=== PATIENT | male | born 1980 ===

== ENCOUNTER 2017-11-07 19:17 | Inpatient (IN) ==
[2017-11-07] MEDS ORDERED: HYDROmorphone 2 MG/1 ML VIAL IV STA (20:25)
[2017-11-07] MEDS ORDERED: SODIUM CHLORIDE 0.9% 1,000 ML IV STA (20:25)
[2017-11-07] MEDS ORDERED: CLINDAMYCIN INJ 600 MG in PREMIX 1 EACH IV STA (20:25)
[2017-11-07 21:02] LABS: Basophils % 0.2 % (0.0-0.8); Eosinophils # 0.1 10*3/uL (0.0-0.87); Eosinophils % 0.3 % (0.00-10.9); Hematocrit 35.5 VOL% (42.0-52.0); Hemoglobin 12.1 GM/DL (14.0-18.0); Immature Granulocytes % 0.4 %; Immature Granulocytes Absolute 0.08 #; Lymphocytes # 1.5 10*3/uL (1.4-4.0); Mean Corpuscular HGB Conc 34.1 GM/DL (32-36); Mean Corpuscular Hemoglobin 29 PG (27-34); Mean Corpuscular Volume 85.7 FL (87-102); Mean Platelet Volume 9.8 FL (9.6-12.0); Monocytes # 1.4 10*3/uL (0.11-0.8); Monocytes % 7.6 % (1.7-12.7); Neutrophils # 15.9 10*3/uL (1.4-7.4); Neutrophils % 83.5 % (38.7-73.9); Platelet Count 299 T/CUMM (130-400); Red Blood Count 4.14 MC/CUMM (3.8-5.5); Red Cell Distribution Width 12.3 % (9.3-17.3); White Blood Count 19.1 T/CUMM (4-12)
[2017-11-07 21:21] LABS: Albumin 1.6 G/DL (3.4-5.0); Bilirubin,Total 0.6 MG/DL (0.2-1.0); Calcium 7.1 MG/DL (8.5-10.1); Osmolality,Calculated 283.1 MOS/KG (273-304); Potassium 3.2 MMOL/L (3.5-5.1); Total Protein 5.8 G/DL (6.4-8.3)
[2017-11-07] MEDS ORDERED: ONDANSETRON 4 MG/2 ML VIAL IV PRN (23:30)
[2017-11-07] MEDS ORDERED: GLUCAGON 1 MG VIAL IM PRN (23:30)
[2017-11-07] MEDS: SODIUM CHLORIDE 0.9% 1,000 ML IV SCH (23:48)
[2017-11-08] MEDS: PIPERACILLIN/TAZOBACTAM 3,375 MG in SODIUM CHLORIDE 0.9% 100 ML IV SCH ×3 (00:55→16:57)
[2017-11-08] MEDS: CLINDAMYCIN INJ 600 MG in PREMIX 1 EACH IV SCH ×2 (06:15→13:23)
[2017-11-08 06:53] LABS: Amorphous Crystals,Urine Occasional /HPF (Few); Apearance,Urine CLOUDY (Clear); Bacteria,Urine Occasional /HPF (Few); Bilirubin,Urine Negative (Negative); Blood, Urine Moderate mg/dL (Negative); Glucose,Urine (UA) >=500 mg/dL (Negative); Ketones,Urine Negative (Negative); Nitrite,Urine Negative (Negative); Protein,Urine >=500 MG/DL; RBC,Urine 1 /HPF (0-4); Squamous Epithelial Cell,Urine Occasional /HPF (0-10); Urine Color Amber (Yellow); Urine Specific Gravity 1.015 (1.001-1.035); Urine Urobilinogen < 2.0 EU/DL (0.2-1.0); WBC,Urine 2 /HPF (0-6)
[2017-11-08] MEDS: HYDROmorphone 2 MG/1 ML VIAL IV PRN (07:01)
[2017-11-08 07:47] LABS: Basophils # 0.1 10*3/uL (0.0-0.2); Basophils % 0.3 % (0.0-0.8); Eosinophils # 0.1 10*3/uL (0.0-0.87); Eosinophils % 0.5 % (0.00-10.9); Hematocrit 35.2 VOL% (42.0-52.0); Hemoglobin 11.6 GM/DL (14.0-18.0); Immature Granulocytes % 0.6 %; Immature Granulocytes Absolute 0.12 #; Lymphocytes # 1.2 10*3/uL (1.4-4.0); Lymphocytes % 6.1 % (21.2-54.2); Mean Corpuscular Hemoglobin 29 PG (27-34); Mean Corpuscular Volume 87.1 FL (87-102); Mean Platelet Volume 10.1 FL (9.6-12.0); Monocytes # 1.6 10*3/uL (0.11-0.8); Monocytes % 8.7 % (1.7-12.7); Neutrophils # 15.8 10*3/uL (1.4-7.4); Neutrophils % 83.8 % (38.7-73.9); Platelet Count 326 T/CUMM (130-400); Red Blood Count 4.04 MC/CUMM (3.8-5.5); Red Cell Distribution Width 12.5 % (9.3-17.3); White Blood Count 18.8 T/CUMM (4-12)
[2017-11-08 08:15] LABS: Albumin 1.5 G/DL (3.4-5.0); Bilirubin,Total 0.4 MG/DL (0.2-1.0); Calcium 7.1 MG/DL (8.5-10.1); Osmolality,Calculated 294.8 MOS/KG (273-304); Potassium 3.7 MMOL/L (3.5-5.1); Total Protein 5.6 G/DL (6.4-8.3)
[2017-11-08] MEDS ORDERED: MAGNESIUM SULF RIDER 2 GM in PREMIX 1 EACH IV PRN (08:18)
[2017-11-08] MEDS ORDERED: MAGNESIUM SULF RIDER 4 GM in PREMIX 1 EACH IV PRN (08:18)
[2017-11-08] MEDS ORDERED: ALBUTEROL/IPRATROPIUM 3 ML NEB RESP TX ONE (08:27)
[2017-11-08] MEDS ORDERED: IPRATROPIUM 500 MCG/2.5 ML NEB RESP TX ONE (08:29)
[2017-11-08] MEDS ORDERED: ALBUTEROL 2.5 MG/3 ML NEB RESP TX ONE (08:29)
[2017-11-08] MEDS: INSULIN REGULAR 100 UNIT/ML SUBCUT SCH ×4 (08:39→21:38)
[2017-11-08] MEDS: SODIUM CHLORIDE 0.9% 500 ML IV ONE ×2 (09:00→11:39)
[2017-11-08] MEDS ORDERED: CARVEDILOL 12.5 MG TABLET PO SCH (09:00)
[2017-11-08] MEDS ORDERED: PANTOPRAZOLE 40 MG TABLET PO SCH (09:00)
[2017-11-08] MEDS ORDERED: amLODIPine 10 MG TABLET PO SCH (09:00)
[2017-11-08] MEDS ORDERED: SPIRONOLACTONE 25 MG TABLET PO SCH (09:00)
[2017-11-08] MEDS ORDERED: CHLORTHALIDONE 25 MG TABLET PO SCH (09:00)
[2017-11-08] MEDS ORDERED: LISINOPRIL 20 MG TABLET PO SCH (09:00)
[2017-11-08] MEDS: glyBURIDE 5 MG TABLET PO SCH ×2 (09:04→21:38)
[2017-11-08] MEDS: sitaGLIPtin 25 MG TABLET PO SCH (09:05)
[2017-11-08] MEDS: GABAPENTIN 300 MG CAPSULE PO SCH ×3 (09:05→18:28)
[2017-11-08] MEDS: CETIRIZINE 10 MG TABLET PO SCH (09:05)
[2017-11-08] MEDS ORDERED: fentaNYL 100 MCG/2 ML VIAL ONE (10:34)
[2017-11-08] MEDS ORDERED: SEVOFLURANE 1 UNIT/15 MINUTE INH ONE (10:35)
[2017-11-08] MEDS ORDERED: MIDAZOLAM 2 MG/2 ML VIAL ONE (10:35)
[2017-11-08] MEDS ORDERED: PROPOFOL 200 MG/20 ML VIAL IV ONE (10:35)
[2017-11-08] MEDS ORDERED: ONDANSETRON 4 MG/2 ML VIAL ONE (10:35)
[2017-11-08] MEDS ORDERED: MORPHINE 10 MG/1 ML VIAL ONE (10:37)
[2017-11-08] MEDS: MORPHINE 10 MG/1 ML VIAL IV PRN ×2 (10:40→10:52)
[2017-11-08] MEDS: SODIUM CHLORIDE 0.9% 1,000 ML IV SCH (13:21)
[2017-11-08] MEDS: INSULIN LISPRO 100 UNIT/ML SUBCUT SCH (17:28)
[2017-11-08] MEDS: miSOPROStol 200 MCG TABLET PO SCH ×2 (18:26→21:38)
[2017-11-08] MEDS ORDERED: VANCOMYCIN INJ 1,000 MG in SODIUM CHLORIDE 0.9% 250 ML IV SCH (18:30)
[2017-11-08] MEDS ORDERED: SODIUM CHLORIDE 0.9% 1,000 ML IV ONE (19:05)
[2017-11-08] MEDS ORDERED: VANCOMYCIN INJ 2,000 MG in SODIUM CHLORIDE 0.9% 500 ML IV PRN (19:17)
[2017-11-08] MEDS: MEROPENEM 500 MG in SYRINGE 1 EACH IV SCH (19:29)
[2017-11-08] MEDS ORDERED: LACTATED RINGERS 1,000 ML IV SCH (19:30)
[2017-11-08] MEDS ORDERED: NOREPINEPHRINE 4 MG/4 ML VIAL IV ONE (19:41)
[2017-11-08 19:42] LABS: ABG Base Excess -9.5 MMOL/L (-2.5-2.5); ABG HCO3 16.8 MMOL/L (20-26); ABG Oxygen Saturation 95.6 % (95-100); ABG PCO2 46.4 MM HG (35-48); ABG PO2 90.3 MM HG (80-95); ABG TCO2 17.2 MMOL/L (23-27); Allen Test Positive
[2017-11-08 19:44] LABS: ABG PH 7.205 (7.35-7.45)
[2017-11-08] MEDS ORDERED: VANCOMYCIN INJ 2,000 MG in SODIUM CHLORIDE 0.9% 500 ML IV ONE (20:00)
[2017-11-08] MEDS ORDERED: ETOMIDATE 20 MG/10 ML VIAL IV ONE ×2 (20:13→21:07)
[2017-11-08] MEDS ORDERED: VECURONIUM 10 MG VIAL IV ONE ×2 (20:13→21:07)
[2017-11-08] MEDS ORDERED: PROPOFOL 1,000 MG/100 ML BOTTLE IV ONE (20:24)
[2017-11-08 20:53] LABS: Basophils % 0.1 % (0.0-0.8); Eosinophils % 0.1 % (0.00-10.9); Hematocrit 33.8 VOL% (42.0-52.0); Hemoglobin 10.9 GM/DL (14.0-18.0); Immature Granulocytes % 0.7 %; Immature Granulocytes Absolute 0.13 #; Lymphocytes # 0.8 10*3/uL (1.4-4.0); Lymphocytes % 4.3 % (21.2-54.2); Mean Corpuscular HGB Conc 32.2 GM/DL (32-36); Mean Corpuscular Hemoglobin 29 PG (27-34); Mean Corpuscular Volume 90.1 FL (87-102); Mean Platelet Volume 10.1 FL (9.6-12.0); Monocytes # 1.4 10*3/uL (0.11-0.8); Monocytes % 7.8 % (1.7-12.7); Neutrophils # 15.8 10*3/uL (1.4-7.4); Platelet Count 331 T/CUMM (130-400); Red Blood Count 3.75 MC/CUMM (3.8-5.5); Red Cell Distribution Width 12.9 % (9.3-17.3); White Blood Count 18.1 T/CUMM (4-12)
[2017-11-08] MEDS ORDERED: INSULIN GLARGINE 100 UNIT/ML SUBCUT SCH (21:00)
[2017-11-08] MEDS: NOREPINEPHRINE 8 MG in SODIUM CHLORIDE 0.9% 242 ML IV PRN (21:00)
[2017-11-08] MEDS ORDERED: ALBUTEROL/IPRATROPIUM 3 ML NEB RESP TX PRN (21:14)
[2017-11-08 21:24] LABS: Albumin 1.5 G/DL (3.4-5.0); Bilirubin,Total 0.6 MG/DL (0.2-1.0); Osmolality,Calculated 289.1 MOS/KG (273-304); Total Protein 5.9 G/DL (6.4-8.3)
[2017-11-08] MEDS: PROPOFOL 1,000 MG/100 ML BOTTLE IV SCH (21:38)
[2017-11-08 21:43] LABS: Band Neutrophils 4 % (0-10); Lymphocytes 8 % (20-55); Platelet Estimate Normal; Segmented Neutrophils 79 % (50-85); Total Cells Counted 100
[2017-11-08 21:51] LABS: ABG Base Excess -10.1 MMOL/L (-2.5-2.5); ABG HCO3 16.4 MMOL/L (20-26); ABG Oxygen Saturation 98.2 % (95-100); ABG PCO2 34.6 MM HG (35-48); ABG PH 7.272 (7.35-7.45); ABG TCO2 14.7 MMOL/L (23-27)
[2017-11-08] MEDS ORDERED: ALBUMIN 5% 12.5 GM in PREMIX 1 EACH IV ONE (22:25)
[2017-11-08] MEDS ORDERED: LACTATED RINGERS 1,000 ML IV ONE (22:25)
[2017-11-08] MEDS ORDERED: SODIUM BICARB INJ 100 MEQ in SODIUM CHLORIDE 0.45% 1,000 ML IV SCH (23:00)
[2017-11-09] MEDS: fentaNYL 100 MCG/2 ML VIAL IV PRN (00:07)
[2017-11-09] MEDS: ALBUTEROL/IPRATROPIUM 3 ML NEB RESP TX SCH ×4 (01:01→19:35)
[2017-11-09] MEDS ORDERED: LACTATED RINGERS 1,000 ML IV SCH (02:00)
[2017-11-09 04:12] LABS: ABG Base Excess -10.1 MMOL/L (-2.5-2.5); ABG HCO3 16.4 MMOL/L (20-26); ABG Oxygen Saturation 95.5 % (95-100); ABG PCO2 38.6 MM HG (35-48); ABG PH 7.244 (7.35-7.45); ABG PO2 83.8 MM HG (80-95); ABG TCO2 15.5 MMOL/L (23-27)
[2017-11-09] MEDS: PROPOFOL 1,000 MG/100 ML BOTTLE IV SCH ×3 (04:17→17:25)
[2017-11-09 04:50] LABS: Basophils % 0.2 % (0.0-0.8); Eosinophils % 0.1 % (0.00-10.9); Hematocrit 29.5 VOL% (42.0-52.0); Hemoglobin 9.6 GM/DL (14.0-18.0); Immature Granulocytes % 0.8 %; Immature Granulocytes Absolute 0.13 #; Lymphocytes # 1.3 10*3/uL (1.4-4.0); Lymphocytes % 7.5 % (21.2-54.2); Mean Corpuscular HGB Conc 32.5 GM/DL (32-36); Mean Corpuscular Hemoglobin 30 PG (27-34); Mean Corpuscular Volume 90.8 FL (87-102); Mean Platelet Volume 10.6 FL (9.6-12.0); Monocytes # 1.4 10*3/uL (0.11-0.8); Monocytes % 8.2 % (1.7-12.7); Neutrophils # 14.4 10*3/uL (1.4-7.4); Neutrophils % 83.2 % (38.7-73.9); Platelet Count 305 T/CUMM (130-400); Red Blood Count 3.25 MC/CUMM (3.8-5.5); Red Cell Distribution Width 12.7 % (9.3-17.3); White Blood Count 17.3 T/CUMM (4-12)
[2017-11-09 05:19] LABS: Calcium 6.6 MG/DL (8.5-10.1); Osmolality,Calculated 295.5 MOS/KG (273-304); Potassium 3.7 MMOL/L (3.5-5.1)
[2017-11-09] MEDS: MEROPENEM 500 MG in SYRINGE 1 EACH IV SCH ×2 (06:05→18:15)
[2017-11-09] MEDS ORDERED: SODIUM CHLORIDE 0.9% 1,000 ML IV SCH (07:00)
[2017-11-09 07:30] LABS: Risk Ratio 3.31
[2017-11-09] MEDS ORDERED: INSULIN LISPRO 100 UNIT/ML SUBCUT SCH (08:00)
[2017-11-09] MEDS: ALBUMIN 25% 25 GM in PREMIX 1 EACH IV SCH ×3 (08:17→23:47)
[2017-11-09] MEDS: sitaGLIPtin 25 MG TABLET PO SCH (08:18)
[2017-11-09] MEDS: CETIRIZINE 10 MG TABLET PO SCH (08:18)
[2017-11-09] MEDS: miSOPROStol 200 MCG TABLET PO SCH ×4 (08:18→20:28)
[2017-11-09] MEDS: glyBURIDE 5 MG TABLET PO SCH ×2 (08:18→20:27)
[2017-11-09 09:14] LABS: Albumin (UPER) 425.2 MG/DL; Albumin (UPER) Rel% 50.8 %; Alpha 1 (UPER) 52.7 MG/DL; Alpha 1 (UPER) Rel% 6.3 %; Alpha 2 (UPER) 87.1 MG/DL; Random Urine Protein (Bench) 837 MG/DL (<11.9)
[2017-11-09 09:15] LABS: Alpha 2 (UPER) Rel % 10.4 %; Beta (UPER) Rel % 13.5 %; Gamma (UPER) 15.9 MG/DL; Immunoglobulin A (Chem) 304 MG/DL (70-400); Immunoglobulin G (Chem) 1330 MG/DL (700-1600); Immunoglobulin M (Chem) 39 MG/DL (40-230)
[2017-11-09] MEDS: SODIUM BICARB INJ 150 MEQ in DEXTROSE 5% 850 ML IV SCH ×3 (09:45→23:31)
[2017-11-09] MEDS: INSULIN REGULAR 100 UNIT/ML SUBCUT SCH (10:00)
[2017-11-09] MEDS ORDERED: INSULIN GLARGINE 100 UNIT/ML SUBCUT ONE (11:14)
[2017-11-09] MEDS: HYDROmorphone 2 MG/1 ML VIAL IV PRN ×2 (11:17→18:15)
[2017-11-09] MEDS: PANTOPRAZOLE 40 MG VIAL IV SCH (11:18)
[2017-11-09] MEDS: INSULIN GLARGINE 100 UNIT/ML SUBCUT SCH ×2 (11:24→20:27)
[2017-11-09] MEDS: INSULIN LISPRO 100 UNIT/ML SUBCUT SCH ×5 (13:15→23:47)
[2017-11-09] MEDS: ACETAMINOPHEN 325 MG TABLET PO PRN (18:00)
[2017-11-09] MEDS ORDERED: NOREPINEPHRINE 4 MG/4 ML VIAL IV ONE (19:15)
[2017-11-09] MEDS: NOREPINEPHRINE 8 MG in SODIUM CHLORIDE 0.9% 242 ML IV PRN (19:42)
[2017-11-10] MEDS: PROPOFOL 1,000 MG/100 ML BOTTLE IV SCH ×5 (00:28→21:36)
[2017-11-10] MEDS: ALBUTEROL/IPRATROPIUM 3 ML NEB RESP TX SCH ×4 (01:10→18:37)
[2017-11-10] MEDS: fentaNYL 100 MCG/2 ML VIAL IV PRN ×2 (03:40→21:06)
[2017-11-10 04:46] LABS: ABG Base Excess -0.7 MMOL/L (-2.5-2.5); ABG HCO3 23.8 MMOL/L (20-26); ABG Oxygen Saturation 96.9 % (95-100); ABG PCO2 39.3 MM HG (35-48); ABG PH 7.394 (7.35-7.45); ABG PO2 88.7 MM HG (80-95); Allen Test Positive; Pt O2 Delivery Device Ventilator
[2017-11-10 05:29] LABS: Basophils % 0.1 % (0.0-0.8); Eosinophils # 0.2 10*3/uL (0.0-0.87); Eosinophils % 1.7 % (0.00-10.9); Hematocrit 27.6 VOL% (42.0-52.0); Hemoglobin 9.5 GM/DL (14.0-18.0); Immature Granulocytes % 0.5 %; Immature Granulocytes Absolute 0.07 #; Lymphocytes % 7.7 % (21.2-54.2); Mean Corpuscular HGB Conc 34.4 GM/DL (32-36); Mean Corpuscular Hemoglobin 29 PG (27-34); Mean Corpuscular Volume 85.4 FL (87-102); Mean Platelet Volume 10.4 FL (9.6-12.0); Monocytes # 1.1 10*3/uL (0.11-0.8); Monocytes % 8.1 % (1.7-12.7); NRBC # 0.02 10*3/uL; Neutrophils # 10.9 10*3/uL (1.4-7.4); Neutrophils % 81.9 % (38.7-73.9); Platelet Count 317 T/CUMM (130-400); Red Blood Count 3.23 MC/CUMM (3.8-5.5); White Blood Count 13.3 T/CUMM (4-12)
[2017-11-10 05:58] LABS: Calcium 7.2 MG/DL (8.5-10.1); Potassium 3.4 MMOL/L (3.5-5.1)
[2017-11-10] MEDS: MEROPENEM 500 MG in SYRINGE 1 EACH IV SCH (05:58)
[2017-11-10] MEDS: SODIUM BICARB INJ 150 MEQ in DEXTROSE 5% 850 ML IV SCH ×5 (06:01→23:39)
[2017-11-10] MEDS: INSULIN LISPRO 100 UNIT/ML SUBCUT SCH ×6 (06:30→23:51)
[2017-11-10] MEDS ORDERED: FUROSEMIDE INJ 160 MG in SODIUM CHLORIDE 0.9% 50 ML IV ONE (09:30)
[2017-11-10] MEDS: ALBUMIN 25% 25 GM in PREMIX 1 EACH IV SCH ×2 (09:49→16:00)
[2017-11-10] MEDS: INSULIN GLARGINE 100 UNIT/ML SUBCUT SCH ×2 (09:50→20:18)
[2017-11-10] MEDS: CETIRIZINE 10 MG TABLET PO SCH (09:51)
[2017-11-10] MEDS: miSOPROStol 200 MCG TABLET PO SCH ×5 (09:51→20:22)
[2017-11-10] MEDS: glyBURIDE 5 MG TABLET PO SCH ×2 (09:51→21:20)
[2017-11-10] MEDS: sitaGLIPtin 25 MG TABLET PO SCH (09:51)
[2017-11-10] MEDS: PANTOPRAZOLE 40 MG VIAL IV SCH (09:52)
[2017-11-10 10:30] LABS: Immuno Free Light Chain Kappa 17.71 MG/DL (0.33-1.94); Immuno Free Light Chain Lambda 15.64 MG/DL (0.57-2.63); Immuno Free Light Chain Ratio 1.13 MG/DL (0.26-1.65)
[2017-11-10 12:34] LABS: Hepatitis A Ab IgM Quant 0.16 Index; Hepatitis A Ab IgM Result Negative (Negative); Hepatitis B Core IgM Quant 0.24 Index; Hepatitis B Core IgM Result Negative (Negative); Hepatitis B Surface Ag Quant < 0.10 Index; Hepatitis B Surface Ag Result Negative (Negative); Hepatitis C Virus Ab Quant 0.18 Index; Hepatitis C Virus Ab Result Negative (Negative)
[2017-11-10] MEDS ORDERED: POTASSIUM CHLORIDE 20 MEQ/15 ML UDCUP PER TUBE SCH (15:30)
[2017-11-10] MEDS: AMPICILLIN/SULBACTAM 3,000 MG in SODIUM CHLORIDE 0.9% 100 ML IV SCH (18:39)
[2017-11-10] MEDS: DEXTROSE 50% 25 GM/50 ML VIAL IV PRN (20:22)
[2017-11-10] MEDS: hydrALAZINE 20 MG/1 ML VIAL IV PRN (22:49)
[2017-11-10] MEDS: ACETAMINOPHEN 325 MG TABLET PO PRN (22:50)
[2017-11-11] MEDS: ALBUMIN 25% 25 GM in PREMIX 1 EACH IV SCH ×4 (00:08→18:42)
[2017-11-11] MEDS: DEXTROSE 50% 25 GM/50 ML VIAL IV PRN ×6 (00:09→22:11)
[2017-11-11] MEDS: PROPOFOL 1,000 MG/100 ML BOTTLE IV SCH (01:18)
[2017-11-11] MEDS: ALBUTEROL/IPRATROPIUM 3 ML NEB RESP TX SCH ×4 (01:29→19:16)
[2017-11-11] MEDS: SODIUM BICARB INJ 150 MEQ in DEXTROSE 5% 850 ML IV SCH (03:38)
[2017-11-11 04:04] LABS: Basophils % 0.1 % (0.0-0.8); Eosinophils # 0.2 10*3/uL (0.0-0.87); Hematocrit 27.4 VOL% (42.0-52.0); Hemoglobin 9.8 GM/DL (14.0-18.0); Immature Granulocytes % 0.4 %; Immature Granulocytes Absolute 0.05 #; Lymphocytes % 8.2 % (21.2-54.2); Mean Corpuscular HGB Conc 35.8 GM/DL (32-36); Mean Corpuscular Hemoglobin 30 PG (27-34); Mean Platelet Volume 10.2 FL (9.6-12.0); Neutrophils # 9.9 10*3/uL (1.4-7.4); Neutrophils % 81.3 % (38.7-73.9); Platelet Count 313 T/CUMM (130-400); Red Cell Distribution Width 12.9 % (9.3-17.3); White Blood Count 12.1 T/CUMM (4-12)
[2017-11-11 04:19] LABS: Osmolality,Calculated 277.1 MOS/KG (273-304); Potassium 3.1 MMOL/L (3.5-5.1)
[2017-11-11 04:53] LABS: Allen Test Positive; Pt O2 Delivery Device Ventilator
[2017-11-11 04:55] LABS: ABG Base Excess 6.6 MMOL/L (-2.5-2.5); ABG HCO3 29.8 MMOL/L (20-26); ABG Oxygen Saturation 97.5 % (95-100); ABG PCO2 37.3 MM HG (35-48); ABG PH 7.521 (7.35-7.45)
[2017-11-11] MEDS: INSULIN LISPRO 100 UNIT/ML SUBCUT SCH ×5 (05:55→21:30)
[2017-11-11] MEDS: hydrALAZINE 20 MG/1 ML VIAL IV PRN (06:23)
[2017-11-11] MEDS ORDERED: HEPARIN 10,000 UNIT/10 ML VIAL IV PRN (06:40)
[2017-11-11 07:31] LABS: ABG Base Excess 5.2 MMOL/L (-2.5-2.5); ABG HCO3 29.1 MMOL/L (20-26); ABG Oxygen Saturation 96.4 % (95-100); ABG PCO2 38.5 MM HG (35-48); ABG PH 7.484 (7.35-7.45); Pt O2 Delivery Device Ventilator
[2017-11-11] MEDS: INSULIN GLARGINE 100 UNIT/ML SUBCUT SCH ×2 (08:47→21:31)
[2017-11-11] MEDS: miSOPROStol 200 MCG TABLET PO SCH ×4 (08:49→21:35)
[2017-11-11] MEDS: glyBURIDE 2.5 MG TABLET PO SCH ×2 (08:49→17:22)
[2017-11-11] MEDS: CETIRIZINE 10 MG TABLET PO SCH (08:49)
[2017-11-11] MEDS: sitaGLIPtin 25 MG TABLET PO SCH (08:49)
[2017-11-11] MEDS: PANTOPRAZOLE 40 MG VIAL IV SCH (08:50)
[2017-11-11] MEDS ORDERED: POTASSIUM CHLORIDE 20 MEQ/15 ML UDCUP PER TUBE SCH (08:56)
[2017-11-11 09:33] LABS: ABG Base Excess 4.7 MMOL/L (-2.5-2.5); ABG HCO3 28.6 MMOL/L (20-26); ABG Oxygen Saturation 93.5 % (95-100); ABG PCO2 40.7 MM HG (35-48); ABG PO2 69.9 MM HG (80-95); ABG TCO2 25.6 MMOL/L (23-27)
[2017-11-11] MEDS ORDERED: POTASSIUM CHLORIDE 20 MEQ TABLET PO ONE (14:26)
[2017-11-11] MEDS ORDERED: PROPOFOL 1,000 MG/100 ML BOTTLE IV ONE (15:38)
[2017-11-11] MEDS ORDERED: PROPOFOL 200 MG/20 ML VIAL IV ONE (15:56)
[2017-11-11] MEDS ORDERED: EPINEPHrine 1 MG/10 ML SYRINGE ONE (15:56)
[2017-11-11] MEDS ORDERED: MIDAZOLAM 2 MG/2 ML VIAL ONE (15:57)
[2017-11-11] MEDS ORDERED: SODIUM CHLORIDE 0.9% 500 ML IV ONE (15:57)
[2017-11-11] MEDS ORDERED: GLYCOPYRROLATE 0.4 MG/2 ML VIAL ONE (15:57)
[2017-11-11] MEDS ORDERED: HEPARIN/NACL 0.9% 2 UNITS/ML 500 ML IV ONE (15:57)
[2017-11-11] MEDS ORDERED: ePHEDrine 50 MG/ML AMP ONE (15:57)
[2017-11-11] MEDS ORDERED: fentaNYL 100 MCG/2 ML VIAL ONE (15:57)
[2017-11-11] MEDS ORDERED: SUCCINYLCHOLINE 200 MG/10 ML VIAL ONE (15:57)
[2017-11-11] MEDS ORDERED: SEVOFLURANE 1 UNIT/15 MINUTE INH ONE (15:57)
[2017-11-11 16:16] LABS: ABG Base Excess 0.8 MMOL/L (-2.5-2.5); ABG HCO3 25.1 MMOL/L (20-26); ABG Oxygen Saturation 93.8 % (95-100); ABG PCO2 45.5 MM HG (35-48); ABG PH 7.372 (7.35-7.45); ABG PO2 77.7 MM HG (80-95); ABG TCO2 24.1 MMOL/L (23-27)
[2017-11-11 16:17] LABS: Basophils % 0.2 % (0.0-0.8); Eosinophils # 0.2 10*3/uL (0.0-0.87); Eosinophils % 1.8 % (0.00-10.9); Hematocrit 31.6 VOL% (42.0-52.0); Hemoglobin 10.6 GM/DL (14.0-18.0); Immature Granulocytes % 0.8 %; Immature Granulocytes Absolute 0.11 #; Lymphocytes # 0.6 10*3/uL (1.4-4.0); Lymphocytes % 4.4 % (21.2-54.2); Mean Corpuscular HGB Conc 33.5 GM/DL (32-36); Mean Corpuscular Hemoglobin 29 PG (27-34); Mean Corpuscular Volume 85.4 FL (87-102); Monocytes # 0.6 10*3/uL (0.11-0.8); Monocytes % 4.8 % (1.7-12.7); Neutrophils # 11.5 10*3/uL (1.4-7.4); Platelet Count 342 T/CUMM (130-400); Red Cell Distribution Width 12.9 % (9.3-17.3)
[2017-11-11] MEDS ORDERED: PROPOFOL 1,000 MG/100 ML BOTTLE IV SCH (16:30)
[2017-11-11 16:43] LABS: Eosinophils 2 % (0-10); Hypochromasia Slight; Lymphocytes 5 % (20-55); Platelet Estimate Normal; Segmented Neutrophils 88 % (50-85); Total Cells Counted 100
[2017-11-11 16:57] LABS: Alanine Aminotransferase 15 U/L (16-61); Alkaline Phosphatase 101 U/L (45-117); Aspartate Amino Transferase 15 U/L (0-37); Blood Urea Nitrogen 45 MG/DL (7-18); Calcium 6.7 MG/DL (8.5-10.1); Glucose 107 MG/DL (74-106); Osmolality,Calculated 281.1 MOS/KG (273-304); Sodium 135 MMOL/L (136-145); Total Protein 5.2 G/DL (6.4-8.3)
[2017-11-11 17:11] LABS: Troponin I Only 0.045 NG/ML (0.00-0.045)
[2017-11-11] MEDS: AMPICILLIN/SULBACTAM 3,000 MG in SODIUM CHLORIDE 0.9% 100 ML IV SCH (17:51)
[2017-11-11] MEDS ORDERED: WARFARIN 5 MG TABLET PO SCH (18:00)
[2017-11-11] MEDS: HYDROmorphone 2 MG/1 ML VIAL IV PRN (18:37)
[2017-11-12] MEDS: ALBUTEROL/IPRATROPIUM 3 ML NEB RESP TX SCH ×4 (00:02→19:32)
[2017-11-12] MEDS: hydrALAZINE 20 MG/1 ML VIAL IV PRN ×2 (00:02→09:04)
[2017-11-12] MEDS: INSULIN LISPRO 100 UNIT/ML SUBCUT SCH ×5 (00:25→18:24)
[2017-11-12] MEDS: DEXTROSE 5% 1,000 ML IV SCH ×3 (00:33→14:39)
[2017-11-12] MEDS: ALBUMIN 25% 25 GM in PREMIX 1 EACH IV SCH ×3 (02:24→18:10)
[2017-11-12] MEDS: DEXTROSE 50% 25 GM/50 ML VIAL IV PRN ×2 (02:27→18:22)
[2017-11-12 03:42] LABS: ABG Base Excess 3.3 MMOL/L (-2.5-2.5); ABG HCO3 26.4 MMOL/L (20-26); ABG Oxygen Saturation 98.3 % (95-100); ABG PCO2 35.1 MM HG (35-48); ABG PH 7.494 (7.35-7.45); ABG TCO2 27.5 MMOL/L (23-27); Basophils % 0.1 % (0.0-0.8); Eosinophils # 0.4 10*3/uL (0.0-0.87); Eosinophils % 2.6 % (0.00-10.9); Hematocrit 32.7 VOL% (42.0-52.0); Immature Granulocytes % 0.7 %; Immature Granulocytes Absolute 0.11 #; Lymphocytes # 0.9 10*3/uL (1.4-4.0); Lymphocytes % 5.7 % (21.2-54.2); Mean Corpuscular HGB Conc 33.6 GM/DL (32-36); Mean Corpuscular Hemoglobin 29 PG (27-34); Mean Corpuscular Volume 85.4 FL (87-102); Monocytes # 1.1 10*3/uL (0.11-0.8); Monocytes % 7.2 % (1.7-12.7); Neutrophils # 12.4 10*3/uL (1.4-7.4); Neutrophils % 83.7 % (38.7-73.9); Platelet Count 333 T/CUMM (130-400); Red Blood Count 3.83 MC/CUMM (3.8-5.5); Red Cell Distribution Width 12.7 % (9.3-17.3); White Blood Count 14.8 T/CUMM (4-12)
[2017-11-12 04:06] LABS: Osmolality,Calculated 282.1 MOS/KG (273-304); Potassium 3.8 MMOL/L (3.5-5.1)
[2017-11-12] MEDS: glyBURIDE 2.5 MG TABLET PO SCH ×2 (07:21→18:15)
[2017-11-12] MEDS: sitaGLIPtin 25 MG TABLET PO SCH (08:22)
[2017-11-12] MEDS: INSULIN GLARGINE 100 UNIT/ML SUBCUT SCH ×2 (08:22→21:04)
[2017-11-12] MEDS: miSOPROStol 200 MCG TABLET PO SCH ×4 (08:29→21:35)
[2017-11-12] MEDS: PANTOPRAZOLE 40 MG VIAL IV SCH (08:30)
[2017-11-12] MEDS: CETIRIZINE 10 MG TABLET PO SCH (08:38)
[2017-11-12] MEDS: SILVER NITRATE STICK 1 EACH TOP ONE (10:00)
[2017-11-12] MEDS ORDERED: SILVER NITRATE STICK 1 EACH TOP ONE (10:26)
[2017-11-12] MEDS: HYDROmorphone 2 MG/1 ML VIAL IV PRN ×2 (13:21→21:35)
[2017-11-12] MEDS ORDERED: INSULIN LISPRO 100 UNIT/ML SUBCUT SCH (17:00)
[2017-11-12] MEDS: AMPICILLIN/SULBACTAM 3,000 MG in SODIUM CHLORIDE 0.9% 100 ML IV SCH (18:09)
[2017-11-13] MEDS: ALBUTEROL/IPRATROPIUM 3 ML NEB RESP TX SCH ×4 (00:09→19:31)
[2017-11-13] MEDS: DEXTROSE 50% 25 GM/50 ML VIAL IV PRN (00:21)
[2017-11-13] MEDS: INSULIN LISPRO 100 UNIT/ML SUBCUT SCH ×5 (00:30→23:56)
[2017-11-13] MEDS: DEXTROSE 5% 1,000 ML IV SCH (02:31)
[2017-11-13] MEDS: HYDROmorphone 2 MG/1 ML VIAL IV PRN ×6 (02:58→22:10)
[2017-11-13] MEDS: ALBUMIN 25% 25 GM in PREMIX 1 EACH IV SCH ×3 (02:58→17:00)
[2017-11-13 03:56] LABS: ABG Base Excess 2.3 MMOL/L (-2.5-2.5); ABG HCO3 27.1 MMOL/L (20-26); ABG Oxygen Saturation 97.5 % (95-100); ABG PH 7.417 (7.35-7.45); ABG PO2 110.8 MM HG (80-95); ABG TCO2 28.4 MMOL/L (23-27)
[2017-11-13 04:06] LABS: Basophils % 0.2 % (0.0-0.8); Eosinophils # 0.6 10*3/uL (0.0-0.87); Eosinophils % 4.6 % (0.00-10.9); Hematocrit 29.1 VOL% (42.0-52.0); Hemoglobin 9.9 GM/DL (14.0-18.0); Immature Granulocytes % 0.6 %; Immature Granulocytes Absolute 0.08 #; Lymphocytes % 7.3 % (21.2-54.2); Mean Corpuscular Hemoglobin 29 PG (27-34); Mean Corpuscular Volume 85.8 FL (87-102); Mean Platelet Volume 9.6 FL (9.6-12.0); Monocytes % 7.2 % (1.7-12.7); Neutrophils # 10.6 10*3/uL (1.4-7.4); Neutrophils % 80.1 % (38.7-73.9); Platelet Count 338 T/CUMM (130-400); Red Blood Count 3.39 MC/CUMM (3.8-5.5); White Blood Count 13.2 T/CUMM (4-12)
[2017-11-13 04:29] LABS: Calcium 7.5 MG/DL (8.5-10.1); Osmolality,Calculated 278.5 MOS/KG (273-304); Potassium 3.9 MMOL/L (3.5-5.1)
[2017-11-13 05:14] LABS: Albumin 2.8 G/DL (3.4-5.0); Bilirubin,Direct 0.26 MG/DL (0.0-0.20); Bilirubin,Indirect 0.3 MG/DL (0.0-1.0); Bilirubin,Total 0.6 MG/DL (0.2-1.0); Total Protein 5.9 G/DL (6.4-8.3)
[2017-11-13] MEDS: hydrALAZINE 20 MG/1 ML VIAL IV PRN ×2 (06:37→09:42)
[2017-11-13] MEDS ORDERED: methylPREDNISolone SOD SUC 125 MG/2 ML VIAL IV ONE (07:14)
[2017-11-13] MEDS: miSOPROStol 200 MCG TABLET PO SCH ×4 (08:54→20:56)
[2017-11-13] MEDS: PANTOPRAZOLE 40 MG VIAL IV SCH (08:56)
[2017-11-13] MEDS: FUROSEMIDE 40 MG/4 ML VIAL IV SCH ×2 (09:58→17:39)
[2017-11-13] MEDS ORDERED: PROPOFOL 1,000 MG/100 ML BOTTLE IV ONE (11:19)
[2017-11-13] MEDS: PROPOFOL 1,000 MG/100 ML BOTTLE IV SCH ×3 (12:08→22:57)
[2017-11-13] MEDS ORDERED: CARVEDILOL 12.5 MG TABLET PO ONE (16:07)
[2017-11-13] MEDS ORDERED: CARVEDILOL 12.5 MG TABLET PO SCH ×2 (16:07→21:00)
[2017-11-13] MEDS: AMPICILLIN/SULBACTAM 3,000 MG in SODIUM CHLORIDE 0.9% 100 ML IV SCH (16:34)
[2017-11-13] MEDS: CARVEDILOL 12.5 MG TABLET PO SCH (20:56)
[2017-11-14] MEDS: ALBUTEROL/IPRATROPIUM 3 ML NEB RESP TX SCH ×4 (00:06→19:41)
[2017-11-14] MEDS ORDERED: FUROSEMIDE 20 MG/2 ML VIAL ONE (01:17)
[2017-11-14] MEDS: ALBUMIN 25% 25 GM in PREMIX 1 EACH IV SCH ×3 (01:59→17:30)
[2017-11-14] MEDS: FUROSEMIDE 40 MG/4 ML VIAL IV SCH (02:53)
[2017-11-14 04:10] LABS: ABG Base Excess 0.5 MMOL/L (-2.5-2.5); ABG HCO3 24.4 MMOL/L (20-26); ABG Oxygen Saturation 98.6 % (95-100); ABG PCO2 36.4 MM HG (35-48); ABG PH 7.444 (7.35-7.45); ABG TCO2 25.5 MMOL/L (23-27)
[2017-11-14 04:27] LABS: Basophils % 0.1 % (0.0-0.8); Eosinophils % 0.1 % (0.00-10.9); Hematocrit 29.6 VOL% (42.0-52.0); Hemoglobin 10.4 GM/DL (14.0-18.0); Immature Granulocytes % 0.8 %; Immature Granulocytes Absolute 0.12 #; Lymphocytes # 0.7 10*3/uL (1.4-4.0); Lymphocytes % 4.7 % (21.2-54.2); Mean Corpuscular HGB Conc 35.1 GM/DL (32-36); Mean Corpuscular Hemoglobin 29 PG (27-34); Mean Corpuscular Volume 83.6 FL (87-102); Mean Platelet Volume 9.9 FL (9.6-12.0); Monocytes # 1.2 10*3/uL (0.11-0.8); Neutrophils # 12.4 10*3/uL (1.4-7.4); Neutrophils % 86.3 % (38.7-73.9); Platelet Count 391 T/CUMM (130-400); Red Blood Count 3.54 MC/CUMM (3.8-5.5); White Blood Count 14.4 T/CUMM (4-12)
[2017-11-14] MEDS: PROPOFOL 1,000 MG/100 ML BOTTLE IV SCH (04:49)
[2017-11-14 05:02] LABS: Calcium 7.5 MG/DL (8.5-10.1); Osmolality,Calculated 290.2 MOS/KG (273-304); Potassium 4.6 MMOL/L (3.5-5.1); Prealbumin 12.3 MG/DL (20-40)
[2017-11-14 05:14] LABS: Hypochromasia Slight; Lymphocytes 6 % (20-55); Microcytosis Slight; Myelocytes 1 %; Segmented Neutrophils 88 % (50-85); Total Cells Counted 100
[2017-11-14 05:15] LABS: Platelet Estimate Normal
[2017-11-14] MEDS: hydrALAZINE 20 MG/1 ML VIAL IV PRN ×2 (05:22→14:13)
[2017-11-14] MEDS: INSULIN LISPRO 100 UNIT/ML SUBCUT SCH ×3 (06:19→19:10)
[2017-11-14 07:59] LABS: ABG Base Excess 0.3 MMOL/L (-2.5-2.5); ABG HCO3 24.7 MMOL/L (20-26); ABG Oxygen Saturation 98.4 % (95-100); ABG PCO2 38.9 MM HG (35-48); ABG PH 7.412 (7.35-7.45); ABG TCO2 22.4 MMOL/L (23-27)
[2017-11-14] MEDS: miSOPROStol 200 MCG TABLET PO SCH ×4 (08:23→21:28)
[2017-11-14] MEDS: CARVEDILOL 12.5 MG TABLET PO SCH ×2 (08:24→21:28)
[2017-11-14] MEDS: PANTOPRAZOLE 40 MG VIAL IV SCH (08:26)
[2017-11-14] MEDS: INSULIN GLARGINE 100 UNIT/ML SUBCUT SCH ×2 (08:29→21:27)
[2017-11-14] MEDS ORDERED: LORazepam 2 MG/1 ML VIAL IV PRN (12:32)
[2017-11-14] MEDS ORDERED: LORazepam 2 MG/1 ML VIAL ONE (12:33)
[2017-11-14] MEDS ORDERED: ZIPRASIDONE 20 MG/1 ML VIAL IM PRN (12:53)
[2017-11-14] MEDS: AMPICILLIN/SULBACTAM 3,000 MG in SODIUM CHLORIDE 0.9% 100 ML IV SCH (18:25)
[2017-11-15] MEDS: INSULIN LISPRO 100 UNIT/ML SUBCUT SCH ×4 (00:18→18:34)
[2017-11-15] MEDS: ALBUTEROL/IPRATROPIUM 3 ML NEB RESP TX SCH ×4 (02:04→19:31)
[2017-11-15] MEDS: ALBUMIN 25% 25 GM in PREMIX 1 EACH IV SCH ×3 (06:04→17:58)
[2017-11-15 06:39] LABS: Basophils % 0.2 % (0.0-0.8); Eosinophils # 0.7 10*3/uL (0.0-0.87); Eosinophils % 4.5 % (0.00-10.9); Hematocrit 27.4 VOL% (42.0-52.0); Hemoglobin 9.2 GM/DL (14.0-18.0); Immature Granulocytes % 0.7 %; Immature Granulocytes Absolute 0.12 #; Lymphocytes # 0.9 10*3/uL (1.4-4.0); Lymphocytes % 5.4 % (21.2-54.2); Mean Corpuscular HGB Conc 33.6 GM/DL (32-36); Mean Corpuscular Hemoglobin 29 PG (27-34); Mean Corpuscular Volume 86.2 FL (87-102); Mean Platelet Volume 9.3 FL (9.6-12.0); Monocytes % 6.2 % (1.7-12.7); Neutrophils # 13.4 10*3/uL (1.4-7.4); Platelet Count 357 T/CUMM (130-400); Red Blood Count 3.18 MC/CUMM (3.8-5.5); Red Cell Distribution Width 12.9 % (9.3-17.3); White Blood Count 16.2 T/CUMM (4-12)
[2017-11-15 07:26] LABS: Albumin 3.1 G/DL (3.4-5.0); Bilirubin,Total 0.5 MG/DL (0.2-1.0); Calcium 7.7 MG/DL (8.5-10.1); Osmolality,Calculated 287.2 MOS/KG (273-304); Potassium 3.8 MMOL/L (3.5-5.1); Total Protein 5.9 G/DL (6.4-8.3)
[2017-11-15] MEDS: INSULIN GLARGINE 100 UNIT/ML SUBCUT SCH ×2 (09:05→21:24)
[2017-11-15] MEDS: miSOPROStol 200 MCG TABLET PO SCH ×4 (09:05→21:24)
[2017-11-15] MEDS: PANTOPRAZOLE 40 MG VIAL IV SCH (09:05)
[2017-11-15] MEDS: CARVEDILOL 12.5 MG TABLET PO SCH ×2 (09:06→21:24)
[2017-11-15] MEDS ORDERED: GLUCAGON 1 MG VIAL IM PRN (09:48)
[2017-11-15] MEDS ORDERED: DEXTROSE 50% 25 GM/50 ML VIAL IV PRN (09:48)
[2017-11-15] MEDS: ASPIRIN CHEW 81 MG TABLET PO SCH (12:21)
[2017-11-15] MEDS: AMPICILLIN/SULBACTAM 3,000 MG in SODIUM CHLORIDE 0.9% 100 ML IV SCH (18:00)
[2017-11-16] MEDS: ALBUTEROL/IPRATROPIUM 3 ML NEB RESP TX SCH ×3 (00:06→13:45)
[2017-11-16] MEDS: INSULIN LISPRO 100 UNIT/ML SUBCUT SCH ×3 (00:25→12:35)
[2017-11-16] MEDS: ALBUMIN 25% 25 GM in PREMIX 1 EACH IV SCH ×2 (01:13→09:59)
[2017-11-16 04:50] LABS: Basophils % 0.1 % (0.0-0.8); Eosinophils # 0.8 10*3/uL (0.0-0.87); Eosinophils % 5.5 % (0.00-10.9); Hematocrit 26.1 VOL% (42.0-52.0); Immature Granulocytes % 0.6 %; Immature Granulocytes Absolute 0.09 #; Lymphocytes # 0.9 10*3/uL (1.4-4.0); Lymphocytes % 5.7 % (21.2-54.2); Mean Corpuscular HGB Conc 34.5 GM/DL (32-36); Mean Corpuscular Hemoglobin 29 PG (27-34); Mean Corpuscular Volume 84.7 FL (87-102); Mean Platelet Volume 9.5 FL (9.6-12.0); Monocytes # 1.2 10*3/uL (0.11-0.8); Monocytes % 7.9 % (1.7-12.7); Neutrophils # 11.9 10*3/uL (1.4-7.4); Neutrophils % 80.2 % (38.7-73.9); Platelet Count 356 T/CUMM (130-400); Red Blood Count 3.08 MC/CUMM (3.8-5.5); Red Cell Distribution Width 13.2 % (9.3-17.3); White Blood Count 14.8 T/CUMM (4-12)
[2017-11-16 05:24] LABS: Calcium 8.1 MG/DL (8.5-10.1)
[2017-11-16] MEDS ORDERED: SODIUM BICARB INJ 150 MEQ in DEXTROSE 5% 850 ML IV SCH (09:00)
[2017-11-16] MEDS: INSULIN GLARGINE 100 UNIT/ML SUBCUT SCH (09:43)
[2017-11-16] MEDS: ASPIRIN CHEW 81 MG TABLET PO SCH (09:43)
[2017-11-16] MEDS: PANTOPRAZOLE 40 MG VIAL IV SCH (09:44)
[2017-11-16] MEDS: CARVEDILOL 12.5 MG TABLET PO SCH (09:44)
[2017-11-16] MEDS: miSOPROStol 200 MCG TABLET PO SCH (09:58)
[2017-11-16] MEDS: hydrALAZINE 20 MG/1 ML VIAL IV PRN (12:44)
[2017-11-16 15:01] VITALS: BP 167/95
== END 2017-11-16 15:58 | DRG 853 ==
LOC: N.ED 19:17 → N.EDINP 21:00 → N.ICU 22:42 → N.5E 11-08 06:43 → N.ICU 11-08 18:29
PROVIDERS: ADMIT Surgery; ATTEND Surgery

== ENCOUNTER 2019-01-04 10:54 | Inpatient (IN) ==
[2019-01-04] MEDS ORDERED: hydrALAZINE 20 MG/1 ML VIAL IV STA (11:04)
[2019-01-04 11:38] LABS: CKMB % 4.6 %
[2019-01-04] MEDS ORDERED: GLUCAGON 1 MG VIAL IM PRN (12:53)
[2019-01-04] MEDS ORDERED: ONDANSETRON 4 MG/2 ML VIAL IV PRN (12:53)
[2019-01-04] MEDS ORDERED: DEXTROSE 50% 25 GM/50 ML VIAL IV PRN (12:53)
[2019-01-04] MEDS ORDERED: ACETAMINOPHEN 325 MG TABLET PO PRN (12:53)
[2019-01-04] MEDS ORDERED: miSOPROStol 200 MCG TABLET PO SCH (13:00)
[2019-01-04] MEDS: HEPARIN 5,000 UNIT/1 ML VIAL SUBCUT SCH ×2 (15:14→20:33)
[2019-01-04] MEDS: OXYBUTYNIN 5 MG TABLET PO SCH ×2 (15:15→20:33)
[2019-01-04] MEDS: FUROSEMIDE 40 MG/4 ML VIAL IV SCH (15:15)
[2019-01-04 15:36] LABS: CKMB % 4.6 %; Troponin I 0.017 NG/ML (0.00-0.045)
[2019-01-04 16:16] LABS: Apearance,Urine CLEAR (Clear); Bilirubin,Urine Negative (Negative); Blood, Urine Small mg/dL (Negative); Glucose,Urine (UA) 50 mg/dL (Negative); Ketones,Urine Negative (Negative); Nitrite,Urine Negative (Negative); Protein,Urine >=500 MG/DL; RBC,Urine 1 /HPF (0-4); Squamous Epithelial Cell,Urine Occasional /HPF (0-10); Urine Color Straw (Yellow); Urine Specific Gravity 1.009 (1.001-1.035); Urine Urobilinogen < 2.0 EU/DL (0.2-1.0); WBC,Urine 1 /HPF (0-6)
[2019-01-04 16:27] LABS: Creatinine,Urine Random 31 MG/DL; Urea Nitrogen, Urine Random 319 MG/DL
[2019-01-04 16:47] LABS: Total Protein,Urine Random 425 MG/DL
[2019-01-04 18:38] LABS: CKMB % 4.2 %; Troponin I < 0.015 NG/ML (0.00-0.045)
[2019-01-04] MEDS: CARVEDILOL 25 MG TABLET PO SCH (20:33)
[2019-01-04] MEDS ORDERED: CARVEDILOL 12.5 MG TABLET PO SCH (21:00)
[2019-01-05 05:28] LABS: Basophils % 0.3 % (0.0-0.8); Eosinophils # 0.3 10*3/uL (0.0-0.87); Eosinophils % 2.8 % (0.00-10.9); Hematocrit 23.6 VOL% (42.0-52.0); Hemoglobin 7.2 GM/DL (14.0-18.0); Immature Granulocytes % 0.6 %; Immature Granulocytes Absolute 0.05 #; Lymphocytes # 1.4 10*3/uL (1.4-4.0); Lymphocytes % 15.3 % (21.2-54.2); Mean Corpuscular HGB Conc 30.5 GM/DL (32-36); Mean Corpuscular Volume 97.1 FL (87-102); Mean Platelet Volume 9.7 FL (9.6-12.0); Monocytes % 8.4 % (1.7-12.7); Neutrophils % 72.6 % (38.7-73.9); Platelet Count 288 T/CUMM (130-400); Red Blood Count 2.43 MC/CUMM (3.8-5.5); Red Cell Distribution Width 15.1 % (9.3-17.3)
[2019-01-05 05:43] LABS: Alanine Aminotransferase 14 U/L (16-61); Albumin 2.5 G/DL (3.4-5.0); Alkaline Phosphatase 73 U/L (45-117); Aspartate Amino Transferase 4 U/L (0-37); Bilirubin,Total < 0.39 MG/DL (0.2-1.0); Blood Urea Nitrogen 62 MG/DL (7-18); Calcium 8.2 MG/DL (8.5-10.1); Glucose 94 MG/DL (74-106); HDL Cholesterol 51 MG/DL (40-60); Osmolality,Calculated 294.5 MOS/KG (273-304); Risk Ratio 2.22; Total Protein 5.8 G/DL (6.4-8.3); Triglycerides 67 MG/DL (2-150); VLDL CHOLESTEROL 13.4 MG/DL
[2019-01-05] MEDS: HEPARIN 5,000 UNIT/1 ML VIAL SUBCUT SCH ×3 (05:55→21:28)
[2019-01-05] MEDS ORDERED: SODIUM POLYSTYRENE SULFATE 15 GM/60 ML BOTTLE PO ONE (07:40)
[2019-01-05] MEDS: PANTOPRAZOLE 40 MG TABLET PO SCH (09:01)
[2019-01-05] MEDS: CARVEDILOL 25 MG TABLET PO SCH ×2 (09:01→21:28)
[2019-01-05] MEDS: ASPIRIN CHEW 81 MG TABLET PO SCH (09:01)
[2019-01-05] MEDS: OXYBUTYNIN 5 MG TABLET PO SCH ×3 (09:01→21:28)
[2019-01-05] MEDS: FUROSEMIDE 40 MG/4 ML VIAL IV SCH ×2 (09:01→16:45)
[2019-01-05] MEDS: SODIUM BICARB INJ 150 MEQ in STERILE WATER INJ 1,000 ML IV SCH (13:29)
[2019-01-05] MEDS ORDERED: SODIUM CHLORIDE 0.9% 1,000 ML IV PRN (16:01)
[2019-01-05] MEDS ORDERED: diphenhydrAMINE CAP 25 MG CAPSULE PO SCH (16:30)
[2019-01-05] MEDS ORDERED: FUROSEMIDE 20 MG/2 ML VIAL IV SCH (16:30)
[2019-01-06] MEDS: hydrALAZINE 20 MG/1 ML VIAL IV PRN ×2 (01:53→11:28)
[2019-01-06] MEDS: HEPARIN 5,000 UNIT/1 ML VIAL SUBCUT SCH ×3 (05:23→20:39)
[2019-01-06] MEDS ORDERED: FUROSEMIDE 20 MG/2 ML VIAL IV ONE (06:30)
[2019-01-06] MEDS: SODIUM BICARB INJ 150 MEQ in STERILE WATER INJ 1,000 ML IV SCH ×3 (07:25→16:49)
[2019-01-06] MEDS: FUROSEMIDE 40 MG/4 ML VIAL IV SCH ×2 (08:34→15:26)
[2019-01-06] MEDS: ASPIRIN CHEW 81 MG TABLET PO SCH (08:35)
[2019-01-06] MEDS: CARVEDILOL 25 MG TABLET PO SCH ×2 (08:35→20:39)
[2019-01-06] MEDS: PANTOPRAZOLE 40 MG TABLET PO SCH (08:35)
[2019-01-06] MEDS: OXYBUTYNIN 5 MG TABLET PO SCH ×3 (08:35→20:39)
[2019-01-06 09:10] LABS: Basophils % 0.3 % (0.0-0.8); Eosinophils # 0.4 10*3/uL (0.0-0.87); Eosinophils % 3.6 % (0.00-10.9); Immature Granulocytes % 0.6 %; Immature Granulocytes Absolute 0.06 #; Lymphocytes # 1.5 10*3/uL (1.4-4.0); Lymphocytes % 14.2 % (21.2-54.2); Mean Corpuscular HGB Conc 31.3 GM/DL (32-36); Mean Corpuscular Volume 94.6 FL (87-102); Mean Platelet Volume 10.3 FL (9.6-12.0); Monocytes % 9.3 % (1.7-12.7); Platelet Count 304 T/CUMM (130-400); Red Blood Count 3.17 MC/CUMM (3.8-5.5); Red Cell Distribution Width 15.2 % (9.3-17.3); White Blood Count 10.3 T/CUMM (4-12)
[2019-01-06 09:17] LABS: Hemoglobin 9.4 GM/DL (14.0-18.0)
[2019-01-06 09:34] LABS: % Iron Saturation 36.9 % (18-50)
[2019-01-06 09:36] LABS: Albumin 2.7 G/DL (3.4-5.0); Bilirubin,Total 0.4 MG/DL (0.2-1.0); Calcium 8.3 MG/DL (8.5-10.1); Osmolality,Calculated 299.4 MOS/KG (273-304); Total Protein 6.6 G/DL (6.4-8.3)
[2019-01-06] MEDS: amLODIPine 5 MG TABLET PO SCH (10:24)
[2019-01-07] MEDS: HEPARIN 5,000 UNIT/1 ML VIAL SUBCUT SCH ×3 (04:45→20:35)
[2019-01-07] MEDS: SODIUM BICARB INJ 150 MEQ in STERILE WATER INJ 1,000 ML IV SCH (06:47)
[2019-01-07] MEDS: CARVEDILOL 25 MG TABLET PO SCH ×2 (09:41→20:35)
[2019-01-07] MEDS: FUROSEMIDE 40 MG/4 ML VIAL IV SCH ×2 (09:41→15:17)
[2019-01-07] MEDS: amLODIPine 5 MG TABLET PO SCH (09:41)
[2019-01-07] MEDS: PANTOPRAZOLE 40 MG TABLET PO SCH (09:41)
[2019-01-07] MEDS: ASPIRIN CHEW 81 MG TABLET PO SCH (09:41)
[2019-01-07] MEDS: OXYBUTYNIN 5 MG TABLET PO SCH ×3 (09:43→20:35)
[2019-01-07] MEDS: SODIUM BICARBONATE 650 MG TABLET PO SCH ×2 (10:28→20:36)
[2019-01-07] MEDS: INSULIN LISPRO 100 UNIT/ML SUBCUT SCH (20:36)
[2019-01-08] MEDS: hydrALAZINE 20 MG/1 ML VIAL IV PRN (04:39)
[2019-01-08] MEDS: HEPARIN 5,000 UNIT/1 ML VIAL SUBCUT SCH ×3 (04:41→21:55)
[2019-01-08 06:14] LABS: Basophils % 0.3 % (0.0-0.8); Eosinophils # 0.3 10*3/uL (0.0-0.87); Eosinophils % 3.7 % (0.00-10.9); Hemoglobin 8.9 GM/DL (14.0-18.0); Immature Granulocytes % 0.5 %; Immature Granulocytes Absolute 0.04 #; Lymphocytes % 12.3 % (21.2-54.2); Mean Corpuscular Volume 91.2 FL (87-102); Mean Platelet Volume 10.2 FL (9.6-12.0); Neutrophils % 72.2 % (38.7-73.9); Platelet Count 333 T/CUMM (130-400); Red Blood Count 2.96 MC/CUMM (3.8-5.5); Red Cell Distribution Width 14.6 % (9.3-17.3); White Blood Count 7.9 T/CUMM (4-12)
[2019-01-08 06:21] LABS: Calcium 8.4 MG/DL (8.5-10.1); Osmolality,Calculated 294.8 MOS/KG (273-304)
[2019-01-08] MEDS: SODIUM BICARBONATE 650 MG TABLET PO SCH ×2 (08:39→21:55)
[2019-01-08] MEDS: FUROSEMIDE 40 MG/4 ML VIAL IV SCH ×2 (08:39→16:36)
[2019-01-08] MEDS: OXYBUTYNIN 5 MG TABLET PO SCH ×3 (08:40→21:54)
[2019-01-08] MEDS: PANTOPRAZOLE 40 MG TABLET PO SCH (08:40)
[2019-01-08] MEDS: ASPIRIN CHEW 81 MG TABLET PO SCH (08:40)
[2019-01-08] MEDS: CARVEDILOL 25 MG TABLET PO SCH ×2 (08:42→21:54)
[2019-01-08] MEDS: INSULIN LISPRO 100 UNIT/ML SUBCUT SCH ×4 (08:53→21:55)
[2019-01-08 17:01] LABS: Creatinine,Urine Random 57 MG/DL; Total Protein,Urine Random 431 MG/DL; Urea Nitrogen, Urine Random 392 MG/DL
[2019-01-09 04:43] LABS: Basophils % 0.4 % (0.0-0.8); Eosinophils # 0.4 10*3/uL (0.0-0.87); Eosinophils % 5.3 % (0.00-10.9); Hematocrit 25.9 VOL% (42.0-52.0); Hemoglobin 8.5 GM/DL (14.0-18.0); Immature Granulocytes % 0.5 %; Immature Granulocytes Absolute 0.04 #; Lymphocytes # 1.2 10*3/uL (1.4-4.0); Lymphocytes % 15.3 % (21.2-54.2); Mean Corpuscular HGB Conc 32.8 GM/DL (32-36); Mean Corpuscular Volume 91.5 FL (87-102); Mean Platelet Volume 10.5 FL (9.6-12.0); Monocytes % 11.9 % (1.7-12.7); Neutrophils % 66.6 % (38.7-73.9); Platelet Count 331 T/CUMM (130-400); Red Blood Count 2.83 MC/CUMM (3.8-5.5); Red Cell Distribution Width 14.4 % (9.3-17.3); White Blood Count 7.7 T/CUMM (4-12)
[2019-01-09 04:53] LABS: Albumin 2.3 G/DL (3.4-5.0); Calcium 7.7 MG/DL (8.5-10.1); Osmolality,Calculated 297.8 MOS/KG (273-304)
[2019-01-09] MEDS: HEPARIN 5,000 UNIT/1 ML VIAL SUBCUT SCH ×2 (05:48→12:03)
[2019-01-09] MEDS: INSULIN LISPRO 100 UNIT/ML SUBCUT SCH ×3 (07:59→17:00)
[2019-01-09] MEDS: OXYBUTYNIN 5 MG TABLET PO SCH ×2 (08:13→15:16)
[2019-01-09] MEDS: PANTOPRAZOLE 40 MG TABLET PO SCH (08:13)
[2019-01-09] MEDS: CARVEDILOL 25 MG TABLET PO SCH (08:13)
[2019-01-09] MEDS: FUROSEMIDE 40 MG/4 ML VIAL IV SCH ×2 (08:13→17:00)
[2019-01-09] MEDS: ASPIRIN CHEW 81 MG TABLET PO SCH (08:13)
[2019-01-09] MEDS: SODIUM BICARBONATE 650 MG TABLET PO SCH (08:13)
[2019-01-09 11:30] VITALS: BP 160/96
== END 2019-01-09 17:59 | disposition home or self-care (01) | DRG 291 ==
LOC: EDUNIT# → EDBD → N.ED 10:54 → N.EDINP 10:54 → N.TELEN 13:27 → SUATTDRO 01-05 12:37 → N.TELES 01-05 15:03 → N.TELEN 01-08 07:48
PROVIDERS: ADMIT Internal Medicine; ATTEND Internal Medicine

== ENCOUNTER 2019-02-14 16:53 | Inpatient (IN) ==
[2019-02-14] MEDS ORDERED: hydrALAZINE 20 MG/1 ML VIAL IV ONE (21:32)
[2019-02-14] MEDS ORDERED: GLUCAGON 1 MG VIAL IM PRN (23:06)
[2019-02-14] MEDS ORDERED: MORPHINE 4 MG/1 ML VIAL IV PRN (23:06)
[2019-02-14] MEDS ORDERED: NICOTINE 21 MG/24 HR PATCH TRANSDERM PRN (23:06)
[2019-02-14] MEDS ORDERED: BISACODYL 5 MG TABLET PO PRN (23:06)
[2019-02-14] MEDS ORDERED: ACETAMINOPHEN 325 MG TABLET PO PRN (23:06)
[2019-02-14] MEDS ORDERED: diphenhydrAMINE CAP 25 MG CAPSULE PO PRN (23:06)
[2019-02-14] MEDS ORDERED: hydrALAZINE 20 MG/1 ML VIAL IV PRN (23:06)
[2019-02-14] MEDS ORDERED: ONDANSETRON 4 MG/2 ML VIAL IV PRN (23:06)
[2019-02-14] MEDS ORDERED: DEXTROSE 50% 25 GM/50 ML VIAL IV PRN (23:06)
[2019-02-14] MEDS ORDERED: guaiFENesin/DM ER 600-30 MG TABLET PO PRN (23:06)
[2019-02-14] MEDS ORDERED: BRIMONIDINE BOTH EYES SCH (23:15)
[2019-02-14 23:57] LABS: Basophils % 0.3 % (0.0-0.8); Eosinophils # 0.5 10*3/uL (0.0-0.87); Eosinophils % 4.1 % (0.00-10.9); Hematocrit 25.5 VOL% (42.0-52.0); Hemoglobin 8.1 GM/DL (14.0-18.0); Immature Granulocytes % 0.5 %; Immature Granulocytes Absolute 0.06 #; Lymphocytes # 1.3 10*3/uL (1.4-4.0); Lymphocytes % 11.5 % (21.2-54.2); Mean Corpuscular HGB Conc 31.8 GM/DL (32-36); Mean Corpuscular Volume 93.8 FL (87-102); Mean Platelet Volume 10.5 FL (9.6-12.0); Monocytes % 6.5 % (1.7-12.7); Neutrophils % 77.1 % (38.7-73.9); Platelet Count 306 T/CUMM (130-400); Red Blood Count 2.72 MC/CUMM (3.8-5.5); Red Cell Distribution Width 14.6 % (9.3-17.3); White Blood Count 11.1 T/CUMM (4-12)
[2019-02-15] MEDS: SODIUM BICARBONATE 650 MG TABLET PO SCH ×3 (00:01→21:41)
[2019-02-15] MEDS: CARVEDILOL 25 MG TABLET PO SCH ×3 (00:01→21:41)
[2019-02-15] MEDS: ALBUTEROL/IPRATROPIUM 3 ML NEB RESP TX SCH ×3 (00:20→13:47)
[2019-02-15 00:29] LABS: Alanine Aminotransferase 14 U/L (16-61); Albumin 2.8 G/DL (3.4-5.0); Alkaline Phosphatase 116 U/L (45-117); Aspartate Amino Transferase 10 U/L (0-37); Bilirubin,Total < 0.39 MG/DL (0.2-1.0); Blood Urea Nitrogen 65 MG/DL (7-18); Calcium 8.2 MG/DL (8.5-10.1); Glucose 147 MG/DL (74-106); HDL Cholesterol 48 MG/DL (40-60); Osmolality,Calculated 304.1 MOS/KG (273-304); Risk Ratio 2.17; Total Protein 6.6 G/DL (6.4-8.3); Triglycerides 53 MG/DL (2-150); VLDL CHOLESTEROL 10.6 MG/DL
[2019-02-15] MEDS: TIMOLOL MALEATE RIGHT EYE SCH ×3 (00:54→21:43)
[2019-02-15] MEDS: INSULIN REGULAR 100 UNIT/ML SUBCUT SCH ×4 (08:13→21:57)
[2019-02-15 09:22] LABS: % Iron Saturation 14.1 % (18-50); Ferritin 88.1 ng/ml (26-388); Free T4 (Free Thyroxine) 1.09 NG/DL (0.76-1.46)
[2019-02-15] MEDS: FUROSEMIDE 40 MG/4 ML VIAL IV SCH ×2 (09:28→18:19)
[2019-02-15] MEDS: CETIRIZINE 10 MG TABLET PO SCH (09:33)
[2019-02-15] MEDS: PANTOPRAZOLE 40 MG TABLET PO SCH (09:33)
[2019-02-15] MEDS: ASPIRIN CHEW 81 MG TABLET PO SCH (09:33)
[2019-02-15] MEDS: OXYBUTYNIN 5 MG TABLET PO SCH ×3 (09:33→21:41)
[2019-02-15] MEDS: BRIMONIDINE RIGHT EYE SCH ×2 (09:36→21:43)
[2019-02-15] MEDS: PREDNISOLONE ACETATE RIGHT EYE SCH ×4 (09:36→21:43)
[2019-02-15] MEDS ORDERED: EPOETIN ALFA 10,000 UNIT/1 ML VIAL IV ONE (10:30)
[2019-02-15] MEDS: IRON SUCROSE 200 MG in SODIUM CHLORIDE 0.9% 100 ML IV SCH (12:09)
[2019-02-16] MEDS ORDERED: ceFAZolin 1,000 MG in SYRINGE 1 EACH IV ONE (07:00)
[2019-02-16] MEDS: ALBUTEROL/IPRATROPIUM 3 ML NEB RESP TX SCH ×4 (08:04→19:10)
[2019-02-16] MEDS: INSULIN REGULAR 100 UNIT/ML SUBCUT SCH ×4 (09:34→21:38)
[2019-02-16] MEDS: TIMOLOL MALEATE RIGHT EYE SCH ×2 (09:35→21:26)
[2019-02-16] MEDS: PREDNISOLONE ACETATE RIGHT EYE SCH ×4 (09:35→21:26)
[2019-02-16] MEDS: BRIMONIDINE RIGHT EYE SCH ×2 (09:35→21:26)
[2019-02-16] MEDS: FUROSEMIDE 40 MG/4 ML VIAL IV SCH ×2 (09:35→16:59)
[2019-02-16] MEDS: CARVEDILOL 25 MG TABLET PO SCH ×2 (09:36→21:25)
[2019-02-16] MEDS: IRON SUCROSE 200 MG in SODIUM CHLORIDE 0.9% 100 ML IV SCH (09:36)
[2019-02-16] MEDS: cloNIDine 0.1 MG TABLET PO SCH ×2 (09:36→21:25)
[2019-02-16 11:06] LABS: Basophils % 0.3 % (0.0-0.8); Eosinophils # 0.5 10*3/uL (0.0-0.87); Eosinophils % 4.3 % (0.00-10.9); Hematocrit 24.7 VOL% (42.0-52.0); Hemoglobin 8.1 GM/DL (14.0-18.0); Immature Granulocytes % 0.7 %; Immature Granulocytes Absolute 0.08 #; Lymphocytes % 9.3 % (21.2-54.2); Mean Corpuscular HGB Conc 32.8 GM/DL (32-36); Mean Corpuscular Volume 94.6 FL (87-102); Mean Platelet Volume 10.8 FL (9.6-12.0); Monocytes % 7.5 % (1.7-12.7); Neutrophils % 77.9 % (38.7-73.9); Platelet Count 269 T/CUMM (130-400); Red Blood Count 2.61 MC/CUMM (3.8-5.5); Red Cell Distribution Width 14.6 % (9.3-17.3)
[2019-02-16 11:12] LABS: Albumin 2.4 G/DL (3.4-5.0); Calcium 7.8 MG/DL (8.5-10.1); Osmolality,Calculated 298.4 MOS/KG (273-304)
[2019-02-16] MEDS: PANTOPRAZOLE 40 MG TABLET PO SCH (11:49)
[2019-02-16] MEDS: ASPIRIN CHEW 81 MG TABLET PO SCH (11:49)
[2019-02-16] MEDS: OXYBUTYNIN 5 MG TABLET PO SCH ×3 (11:49→21:25)
[2019-02-16] MEDS: SODIUM BICARBONATE 650 MG TABLET PO SCH ×2 (11:49→21:25)
[2019-02-16] MEDS: LOSARTAN 50 MG TABLET PO SCH (11:49)
[2019-02-16] MEDS: CETIRIZINE 10 MG TABLET PO SCH (11:49)
[2019-02-17] MEDS: ALBUTEROL/IPRATROPIUM 3 ML NEB RESP TX SCH ×4 (00:32→19:53)
[2019-02-17 05:05] LABS: Basophils % 0.3 % (0.0-0.8); Eosinophils # 0.6 10*3/uL (0.0-0.87); Eosinophils % 6.3 % (0.00-10.9); Hematocrit 24.1 VOL% (42.0-52.0); Hemoglobin 7.5 GM/DL (14.0-18.0); Immature Granulocytes % 0.8 %; Immature Granulocytes Absolute 0.07 #; Lymphocytes # 1.2 10*3/uL (1.4-4.0); Lymphocytes % 13.5 % (21.2-54.2); Mean Corpuscular HGB Conc 31.1 GM/DL (32-36); Mean Corpuscular Volume 96.4 FL (87-102); Mean Platelet Volume 10.6 FL (9.6-12.0); Monocytes % 8.8 % (1.7-12.7); NRBC # 0.02 10*3/uL; Neutrophils % 70.3 % (38.7-73.9); Platelet Count 261 T/CUMM (130-400); Red Cell Distribution Width 14.6 % (9.3-17.3)
[2019-02-17 05:27] LABS: Albumin 2.3 G/DL (3.4-5.0); Calcium 7.7 MG/DL (8.5-10.1); Osmolality,Calculated 299.4 MOS/KG (273-304)
[2019-02-17 05:39] LABS: Osmolality,Calculated 299.4 MOS/KG (273-304)
[2019-02-17] MEDS: INSULIN REGULAR 100 UNIT/ML SUBCUT SCH ×4 (09:42→20:59)
[2019-02-17] MEDS: TIMOLOL MALEATE RIGHT EYE SCH ×2 (09:43→20:43)
[2019-02-17] MEDS: BRIMONIDINE RIGHT EYE SCH ×2 (09:43→20:43)
[2019-02-17] MEDS: PREDNISOLONE ACETATE RIGHT EYE SCH ×4 (09:43→20:43)
[2019-02-17] MEDS: SODIUM BICARBONATE 650 MG TABLET PO SCH ×2 (09:44→20:42)
[2019-02-17] MEDS: CARVEDILOL 25 MG TABLET PO SCH ×2 (09:44→20:42)
[2019-02-17] MEDS: OXYBUTYNIN 5 MG TABLET PO SCH ×3 (09:44→20:42)
[2019-02-17] MEDS: PANTOPRAZOLE 40 MG TABLET PO SCH (09:44)
[2019-02-17] MEDS: LOSARTAN 50 MG TABLET PO SCH (09:44)
[2019-02-17] MEDS: CETIRIZINE 10 MG TABLET PO SCH (09:44)
[2019-02-17] MEDS: IRON SUCROSE 200 MG in SODIUM CHLORIDE 0.9% 100 ML IV SCH (09:45)
[2019-02-17] MEDS: FUROSEMIDE 40 MG/4 ML VIAL IV SCH ×2 (09:46→16:23)
[2019-02-17] MEDS: ASPIRIN CHEW 81 MG TABLET PO SCH (09:46)
[2019-02-17] MEDS: cloNIDine 0.1 MG TABLET PO SCH ×2 (09:46→20:42)
[2019-02-17 10:34] LABS: % Iron Saturation 16.8 % (18-50); Ferritin 240.8 ng/ml (26-388)
[2019-02-17] MEDS ORDERED: EPOETIN ALFA 10,000 UNIT/1 ML VIAL SUBCUT ONE (15:51)
[2019-02-18] MEDS: ALBUTEROL/IPRATROPIUM 3 ML NEB RESP TX SCH ×4 (01:08→19:42)
[2019-02-18 05:23] LABS: Basophils % 0.2 % (0.0-0.8); Eosinophils # 0.6 10*3/uL (0.0-0.87); Eosinophils % 6.2 % (0.00-10.9); Hematocrit 25.1 VOL% (42.0-52.0); Hemoglobin 7.9 GM/DL (14.0-18.0); Immature Granulocytes % 0.8 %; Immature Granulocytes Absolute 0.07 #; Lymphocytes # 1.2 10*3/uL (1.4-4.0); Lymphocytes % 12.9 % (21.2-54.2); Mean Corpuscular HGB Conc 31.5 GM/DL (32-36); Mean Corpuscular Volume 96.9 FL (87-102); Mean Platelet Volume 10.7 FL (9.6-12.0); Monocytes % 8.7 % (1.7-12.7); NRBC # 0.04 10*3/uL; Neutrophils % 71.2 % (38.7-73.9); Platelet Count 277 T/CUMM (130-400); Red Blood Count 2.59 MC/CUMM (3.8-5.5); Red Cell Distribution Width 14.7 % (9.3-17.3); White Blood Count 8.9 T/CUMM (4-12)
[2019-02-18 05:31] LABS: Osmolality,Calculated 297.4 MOS/KG (273-304)
[2019-02-18 05:36] LABS: Albumin 2.5 G/DL (3.4-5.0); Calcium 8.1 MG/DL (8.5-10.1); Osmolality,Calculated 301.1 MOS/KG (273-304)
[2019-02-18] MEDS: INSULIN REGULAR 100 UNIT/ML SUBCUT SCH ×4 (08:49→23:13)
[2019-02-18] MEDS: TIMOLOL MALEATE RIGHT EYE SCH ×2 (09:02→20:34)
[2019-02-18] MEDS: BRIMONIDINE RIGHT EYE SCH ×2 (09:02→20:36)
[2019-02-18] MEDS: PREDNISOLONE ACETATE RIGHT EYE SCH ×4 (09:03→20:35)
[2019-02-18] MEDS: metOLazone 5 MG TABLET PO SCH (09:03)
[2019-02-18] MEDS: cloNIDine 0.1 MG TABLET PO SCH ×2 (09:03→20:32)
[2019-02-18] MEDS: LOSARTAN 50 MG TABLET PO SCH (09:03)
[2019-02-18] MEDS: OXYBUTYNIN 5 MG TABLET PO SCH ×3 (09:03→20:33)
[2019-02-18] MEDS: SODIUM BICARBONATE 650 MG TABLET PO SCH ×2 (09:03→20:31)
[2019-02-18] MEDS: PANTOPRAZOLE 40 MG TABLET PO SCH (09:04)
[2019-02-18] MEDS: ASPIRIN CHEW 81 MG TABLET PO SCH (09:04)
[2019-02-18] MEDS: IRON SUCROSE 200 MG in SODIUM CHLORIDE 0.9% 100 ML IV SCH (09:04)
[2019-02-18] MEDS: CARVEDILOL 25 MG TABLET PO SCH ×2 (09:04→20:33)
[2019-02-18] MEDS: CETIRIZINE 10 MG TABLET PO SCH (09:04)
[2019-02-18] MEDS: FUROSEMIDE 40 MG/4 ML VIAL IV SCH ×2 (09:06→16:50)
[2019-02-18] MEDS: FLUTICASONE 50 MCG NASAL SPRAY 16 GM BOTTLE BOTH NARES SCH (20:36)
[2019-02-18] MEDS: OXYMETAZOLINE 0.05% NASAL SPRAY 15 ML BOTTLE BOTH NARES SCH (20:39)
[2019-02-19] MEDS: ALBUTEROL/IPRATROPIUM 3 ML NEB RESP TX SCH ×4 (00:21→18:55)
[2019-02-19 04:56] LABS: Basophils % 0.2 % (0.0-0.8); Eosinophils # 0.5 10*3/uL (0.0-0.87); Eosinophils % 5.4 % (0.00-10.9); Hematocrit 24.6 VOL% (42.0-52.0); Hemoglobin 7.7 GM/DL (14.0-18.0); Immature Granulocytes % 0.7 %; Immature Granulocytes Absolute 0.06 #; Lymphocytes # 0.9 10*3/uL (1.4-4.0); Lymphocytes % 10.2 % (21.2-54.2); Mean Corpuscular HGB Conc 31.3 GM/DL (32-36); Mean Corpuscular Volume 97.2 FL (87-102); Mean Platelet Volume 10.3 FL (9.6-12.0); Monocytes % 8.9 % (1.7-12.7); NRBC # 0.02 10*3/uL; Neutrophils % 74.6 % (38.7-73.9); Platelet Count 297 T/CUMM (130-400); Red Blood Count 2.53 MC/CUMM (3.8-5.5); Red Cell Distribution Width 14.7 % (9.3-17.3); White Blood Count 8.7 T/CUMM (4-12)
[2019-02-19 05:20] LABS: Albumin 2.5 G/DL (3.4-5.0); Osmolality,Calculated 300.5 MOS/KG (273-304)
[2019-02-19] MEDS: INSULIN REGULAR 100 UNIT/ML SUBCUT SCH ×4 (07:34→22:08)
[2019-02-19] MEDS: FLUTICASONE 50 MCG NASAL SPRAY 16 GM BOTTLE BOTH NARES SCH ×2 (09:20→20:45)
[2019-02-19] MEDS: CETIRIZINE 10 MG TABLET PO SCH (09:21)
[2019-02-19] MEDS: SODIUM BICARBONATE 650 MG TABLET PO SCH ×2 (09:21→20:42)
[2019-02-19] MEDS: LOSARTAN 50 MG TABLET PO SCH (09:22)
[2019-02-19] MEDS: OXYBUTYNIN 5 MG TABLET PO SCH ×3 (09:22→20:43)
[2019-02-19] MEDS: cloNIDine 0.1 MG TABLET PO SCH ×2 (09:22→20:43)
[2019-02-19] MEDS: metOLazone 5 MG TABLET PO SCH (09:22)
[2019-02-19] MEDS: PREDNISOLONE ACETATE RIGHT EYE SCH ×4 (09:23→20:47)
[2019-02-19] MEDS: BRIMONIDINE RIGHT EYE SCH ×2 (09:23→20:47)
[2019-02-19] MEDS: PANTOPRAZOLE 40 MG TABLET PO SCH (09:23)
[2019-02-19] MEDS: CARVEDILOL 25 MG TABLET PO SCH ×2 (09:23→20:43)
[2019-02-19] MEDS: TIMOLOL MALEATE RIGHT EYE SCH ×2 (09:23→20:47)
[2019-02-19] MEDS: ASPIRIN CHEW 81 MG TABLET PO SCH (09:23)
[2019-02-19] MEDS: FUROSEMIDE 40 MG/4 ML VIAL IV SCH (09:24)
[2019-02-19] MEDS: IRON SUCROSE 200 MG in SODIUM CHLORIDE 0.9% 100 ML IV SCH (09:33)
[2019-02-19 11:04] LABS: Apearance,Urine CLEAR (Clear); Bilirubin,Urine Negative (Negative); Blood, Urine Small mg/dL (Negative); Glucose,Urine (UA) 50 mg/dL (Negative); Ketones,Urine Negative (Negative); Mucus,Urine Occasional /LPF (Occasional); Nitrite,Urine Negative (Negative); Protein,Urine 100 MG/DL; RBC,Urine 1 /HPF (0-4); Urine Color Straw (Yellow); Urine Specific Gravity 1.008 (1.001-1.035); Urine Urobilinogen < 2.0 EU/DL (0.2-1.0); WBC,Urine <1 /HPF (0-6)
[2019-02-19 11:22] LABS: Creatinine,Urine Random 37 MG/DL; Total Protein,Urine Random 249 MG/DL
[2019-02-19] MEDS: FUROSEMIDE 80 MG TABLET PO SCH (17:03)
[2019-02-19] MEDS: OXYMETAZOLINE 0.05% NASAL SPRAY 15 ML BOTTLE BOTH NARES SCH (20:45)
[2019-02-20] MEDS: ALBUTEROL/IPRATROPIUM 3 ML NEB RESP TX SCH ×3 (00:02→13:00)
[2019-02-20 04:55] LABS: Basophils % 0.2 % (0.0-0.8); Eosinophils # 0.6 10*3/uL (0.0-0.87); Eosinophils % 5.6 % (0.00-10.9); Hemoglobin 8.5 GM/DL (14.0-18.0); Immature Granulocytes % 0.7 %; Immature Granulocytes Absolute 0.07 #; Lymphocytes # 1.1 10*3/uL (1.4-4.0); Lymphocytes % 10.7 % (21.2-54.2); Mean Corpuscular HGB Conc 32.7 GM/DL (32-36); Mean Corpuscular Volume 95.2 FL (87-102); Mean Platelet Volume 10.5 FL (9.6-12.0); Monocytes % 7.3 % (1.7-12.7); NRBC # 0.02 10*3/uL; Neutrophils % 75.5 % (38.7-73.9); Platelet Count 321 T/CUMM (130-400); Red Blood Count 2.73 MC/CUMM (3.8-5.5); Red Cell Distribution Width 15.1 % (9.3-17.3); White Blood Count 9.8 T/CUMM (4-12)
[2019-02-20 05:12] LABS: Albumin 2.6 G/DL (3.4-5.0); Calcium 8.3 MG/DL (8.5-10.1); Osmolality,Calculated 298.7 MOS/KG (273-304)
[2019-02-20 05:32] LABS: Calcium 8.3 MG/DL (8.5-10.1); Osmolality,Calculated 298.7 MOS/KG (273-304)
[2019-02-20] MEDS: LOSARTAN 50 MG TABLET PO SCH (09:29)
[2019-02-20] MEDS: cloNIDine 0.1 MG TABLET PO SCH (09:29)
[2019-02-20] MEDS: PANTOPRAZOLE 40 MG TABLET PO SCH (09:30)
[2019-02-20] MEDS: metOLazone 5 MG TABLET PO SCH (09:30)
[2019-02-20] MEDS: FUROSEMIDE 80 MG TABLET PO SCH ×3 (09:30→16:28)
[2019-02-20] MEDS: OXYBUTYNIN 5 MG TABLET PO SCH ×2 (09:30→14:25)
[2019-02-20] MEDS: CARVEDILOL 25 MG TABLET PO SCH (09:30)
[2019-02-20] MEDS: CETIRIZINE 10 MG TABLET PO SCH (09:31)
[2019-02-20] MEDS: SODIUM BICARBONATE 650 MG TABLET PO SCH (09:31)
[2019-02-20] MEDS: ASPIRIN CHEW 81 MG TABLET PO SCH (09:31)
[2019-02-20] MEDS: INSULIN REGULAR 100 UNIT/ML SUBCUT SCH ×3 (09:33→16:42)
[2019-02-20] MEDS: FLUTICASONE 50 MCG NASAL SPRAY 16 GM BOTTLE BOTH NARES SCH (09:35)
[2019-02-20] MEDS: TIMOLOL MALEATE RIGHT EYE SCH (09:36)
[2019-02-20] MEDS: BRIMONIDINE RIGHT EYE SCH (09:36)
[2019-02-20] MEDS: PREDNISOLONE ACETATE RIGHT EYE SCH ×3 (09:36→17:08)
[2019-02-20] MEDS ORDERED: EPOETIN ALFA 10,000 UNIT/1 ML VIAL SUBCUT ONE (12:00)
[2019-02-20 15:40] VITALS: BP 136/87
== END 2019-02-20 17:09 | disposition home or self-care (01) | DRG 291 ==
LOC: N.2E → SUATTDRO 20:24
PROVIDERS: ADMIT Internal Medicine; ATTEND Internal Medicine

== ENCOUNTER 2019-03-24 16:53 | Inpatient (IN) ==
[2019-03-24] MEDS ORDERED: DEXTROSE 50% 25 GM/50 ML VIAL IV PRN (19:34)
[2019-03-24] MEDS ORDERED: ONDANSETRON 4 MG/2 ML VIAL IV PRN (19:34)
[2019-03-24] MEDS ORDERED: GLUCAGON 1 MG VIAL IM PRN (19:34)
[2019-03-24] MEDS ORDERED: ZALEPLON 5 MG CAPSULE PO PRN (19:34)
[2019-03-24] MEDS ORDERED: ACETAMINOPHEN 325 MG TABLET PO PRN (19:34)
[2019-03-24] MEDS ORDERED: VANCOMYCIN INJ 2,000 MG in SODIUM CHLORIDE 0.9% 500 ML IV PRN (20:27)
[2019-03-24] MEDS ORDERED: VANCOMYCIN INJ 1,000 MG in SODIUM CHLORIDE 0.9% 250 ML IV ONE (21:00)
[2019-03-25] MEDS: SODIUM BICARBONATE 650 MG TABLET PO SCH ×3 (00:17→21:05)
[2019-03-25] MEDS: cloNIDine 0.1 MG TABLET PO SCH ×3 (00:17→21:05)
[2019-03-25] MEDS: carvediloL 25 MG TABLET PO SCH ×3 (00:17→16:18)
[2019-03-25] MEDS: INSULIN REGULAR 100 UNIT/ML SUBCUT SCH ×5 (00:18→20:28)
[2019-03-25] MEDS: BRIMONIDINE 0.2% OPH SOLN 5 ML BOTTLE RIGHT EYE SCH ×3 (00:46→21:04)
[2019-03-25] MEDS: TIMOLOL 0.5% OPH SOLN 5 ML BOTTLE RIGHT EYE SCH ×3 (00:46→21:03)
[2019-03-25] MEDS: prednisoLONE ACETATE 1% OPH SUSP 5 ML BOTTLE RIGHT EYE SCH ×5 (00:46→21:02)
[2019-03-25 05:31] LABS: Basophils % 0.2 % (0.0-0.8); Eosinophils # 0.6 10*3/uL (0.0-0.87); Hematocrit 24.5 VOL% (42.0-52.0); Hemoglobin 7.9 GM/DL (14.0-18.0); Immature Granulocytes % 0.7 %; Immature Granulocytes Absolute 0.08 #; Lymphocytes # 0.9 10*3/uL (1.4-4.0); Lymphocytes % 7.8 % (21.2-54.2); Mean Corpuscular HGB Conc 32.2 GM/DL (32-36); Mean Corpuscular Volume 96.1 FL (87-102); Monocytes % 7.3 % (1.7-12.7); Platelet Count 288 T/CUMM (130-400); Red Blood Count 2.55 MC/CUMM (3.8-5.5); Red Cell Distribution Width 14.9 % (9.3-17.3); White Blood Count 11.5 T/CUMM (4-12)
[2019-03-25 05:45] LABS: Alanine Aminotransferase 13 U/L (16-61); Albumin 2.1 G/DL (3.4-5.0); Alkaline Phosphatase 149 U/L (45-117); Aspartate Amino Transferase 10 U/L (0-37); Bilirubin,Total < 0.39 MG/DL (0.2-1.0); Blood Urea Nitrogen 91 MG/DL (7-18); Calcium 7.5 MG/DL (8.5-10.1); Estimated Glom Filtration Rate 16 ML/MIN; Glucose 136 MG/DL (74-106)
[2019-03-25] MEDS ORDERED: FUROSEMIDE 80 MG TABLET PO SCH (08:00)
[2019-03-25] MEDS: PANTOPRAZOLE 40 MG TABLET PO SCH (08:46)
[2019-03-25] MEDS: metOLazone 5 MG TABLET PO SCH (08:47)
[2019-03-25] MEDS: ASPIRIN CHEW 81 MG TABLET PO SCH (08:49)
[2019-03-25] MEDS: CETIRIZINE 10 MG TABLET PO SCH (08:49)
[2019-03-25] MEDS ORDERED: PANTOPRAZOLE 40 MG TABLET PO SCH (09:00)
[2019-03-25] MEDS ORDERED: DEXTROSE 50% 25 GM/50 ML VIAL IV PRN (09:40)
[2019-03-25 15:32] LABS: Hematocrit 23.7 VOL% (42.0-52.0); Hemoglobin 7.6 GM/DL (14.0-18.0)
[2019-03-25] MEDS: FUROSEMIDE 40 MG/4 ML VIAL IV SCH (15:41)
[2019-03-26 04:59] LABS: Basophils % 0.2 % (0.0-0.8); Eosinophils # 0.7 10*3/uL (0.0-0.87); Hematocrit 23.2 VOL% (42.0-52.0); Hemoglobin 7.7 GM/DL (14.0-18.0); Immature Granulocytes % 0.4 %; Immature Granulocytes Absolute 0.05 #; Lymphocytes % 8.3 % (21.2-54.2); Mean Corpuscular HGB Conc 33.2 GM/DL (32-36); Mean Corpuscular Volume 94.7 FL (87-102); Mean Platelet Volume 10.1 FL (9.6-12.0); Monocytes % 7.2 % (1.7-12.7); Neutrophils % 77.9 % (38.7-73.9); Platelet Count 298 T/CUMM (130-400); Red Blood Count 2.45 MC/CUMM (3.8-5.5); White Blood Count 11.7 T/CUMM (4-12)
[2019-03-26 05:30] LABS: Calcium 7.1 MG/DL (8.5-10.1); Osmolality,Calculated 302.2 MOS/KG (273-304)
[2019-03-26 05:34] LABS: % Iron Saturation 9.6 % (18-50); Ferritin 185.4 ng/ml (26-388)
[2019-03-26 05:42] LABS: Folate 3.9 NG/ML (5.4-24.0); Parathyroid Hormone Intact 243.1 PG/ML (18.4-80.1); Vitamin B12 373 PG/ML (211-911)
[2019-03-26 06:30] LABS: Sedimentation Rate-Westergren 100 MM/HR (0-15)
[2019-03-26] MEDS: PANTOPRAZOLE 40 MG TABLET PO SCH (08:05)
[2019-03-26] MEDS: carvediloL 25 MG TABLET PO SCH ×2 (08:05→17:32)
[2019-03-26] MEDS: cloNIDine 0.1 MG TABLET PO SCH ×2 (08:05→20:52)
[2019-03-26] MEDS ORDERED: BUPIVACAINE MPF 0.25% 30 ML VIAL ONE (08:09)
[2019-03-26] MEDS ORDERED: LIDOCAINE 1% 20 ML VIAL ONE (08:09)
[2019-03-26] MEDS: INSULIN REGULAR 100 UNIT/ML SUBCUT SCH ×4 (08:15→20:47)
[2019-03-26] MEDS ORDERED: MIDAZOLAM 2 MG/2 ML VIAL ONE (09:26)
[2019-03-26] MEDS ORDERED: PROPOFOL 200 MG/20 ML VIAL IV ONE (09:26)
[2019-03-26] MEDS ORDERED: fentaNYL 100 MCG/2 ML VIAL ONE (09:26)
[2019-03-26] MEDS ORDERED: LIDOCAINE 2% 5 ML VIAL ONE (09:26)
[2019-03-26] MEDS ORDERED: KETAMINE 500 MG/10 ML VIAL ONE (09:26)
[2019-03-26] MEDS ORDERED: ONDANSETRON 4 MG/2 ML VIAL ONE (09:27)
[2019-03-26 09:32] LABS: Hemoglobin A1 (Alkaline) 97.6 % (96.5-98.5); Hemoglobin A2 (Alkaline) 2.4 % (1.5-3.5)
[2019-03-26] MEDS: FOLIC ACID 1 MG TABLET PO SCH (10:51)
[2019-03-26] MEDS: SODIUM BICARBONATE 650 MG TABLET PO SCH ×2 (10:51→20:45)
[2019-03-26] MEDS: ASPIRIN CHEW 81 MG TABLET PO SCH (10:51)
[2019-03-26] MEDS: CETIRIZINE 10 MG TABLET PO SCH (10:51)
[2019-03-26] MEDS: prednisoLONE ACETATE 1% OPH SUSP 5 ML BOTTLE RIGHT EYE SCH ×4 (10:52→20:49)
[2019-03-26] MEDS: BRIMONIDINE 0.2% OPH SOLN 5 ML BOTTLE RIGHT EYE SCH ×2 (10:53→20:48)
[2019-03-26] MEDS: TIMOLOL 0.5% OPH SOLN 5 ML BOTTLE RIGHT EYE SCH ×2 (10:53→20:49)
[2019-03-26] MEDS: FUROSEMIDE 40 MG/4 ML VIAL IV SCH ×2 (10:57→16:12)
[2019-03-26] MEDS ORDERED: VANCOMYCIN INJ 2,000 MG in SODIUM CHLORIDE 0.9% 500 ML IV ONE (11:00)
[2019-03-26] MEDS: SILVER SULFADIAZINE 1% CREAM 25 GM TUBE TOP SCH (12:00)
[2019-03-26] MEDS: metOLazone 5 MG TABLET PO SCH (12:16)
[2019-03-26] MEDS ORDERED: HYDROmorphone 2 MG/1 ML VIAL IV PRN (14:02)
[2019-03-26] MEDS ORDERED: CYCLOBENZAPRINE 10 MG TABLET PO PRN (15:47)
[2019-03-27 05:16] LABS: Basophils % 0.1 % (0.0-0.8); Eosinophils # 0.1 10*3/uL (0.0-0.87); Eosinophils % 0.6 % (0.00-10.9); Hematocrit 25.8 VOL% (42.0-52.0); Hemoglobin 8.4 GM/DL (14.0-18.0); Immature Granulocytes % 1.3 %; Immature Granulocytes Absolute 0.14 #; Lymphocytes # 0.7 10*3/uL (1.4-4.0); Lymphocytes % 6.7 % (21.2-54.2); Mean Corpuscular HGB Conc 32.6 GM/DL (32-36); Mean Corpuscular Volume 94.2 FL (87-102); Mean Platelet Volume 10.4 FL (9.6-12.0); Monocytes % 5.2 % (1.7-12.7); Neutrophils % 86.1 % (38.7-73.9); Platelet Count 182 T/CUMM (130-400); Red Blood Count 2.74 MC/CUMM (3.8-5.5); Red Cell Distribution Width 14.6 % (9.3-17.3); White Blood Count 10.4 T/CUMM (4-12)
[2019-03-27 05:33] LABS: Osmolality,Calculated 303.4 MOS/KG (273-304)
[2019-03-27] MEDS: carvediloL 25 MG TABLET PO SCH ×2 (08:49→18:38)
[2019-03-27] MEDS: SODIUM POLYSTYRENE SULFATE 15 GM/60 ML BOTTLE PO SCH ×3 (08:49→20:31)
[2019-03-27] MEDS: metOLazone 5 MG TABLET PO SCH (08:49)
[2019-03-27] MEDS: CETIRIZINE 10 MG TABLET PO SCH (08:49)
[2019-03-27] MEDS: SODIUM BICARBONATE 650 MG TABLET PO SCH ×2 (08:49→20:27)
[2019-03-27] MEDS: PANTOPRAZOLE 40 MG TABLET PO SCH (08:49)
[2019-03-27] MEDS: FOLIC ACID 1 MG TABLET PO SCH (08:49)
[2019-03-27] MEDS: ASPIRIN CHEW 81 MG TABLET PO SCH (08:49)
[2019-03-27] MEDS: FUROSEMIDE 40 MG/4 ML VIAL IV SCH ×2 (08:56→15:22)
[2019-03-27] MEDS: INSULIN REGULAR 100 UNIT/ML SUBCUT SCH ×4 (08:57→20:28)
[2019-03-27] MEDS: cloNIDine 0.1 MG TABLET PO SCH ×2 (08:58→20:29)
[2019-03-27] MEDS: SILVER SULFADIAZINE 1% CREAM 25 GM TUBE TOP SCH (09:00)
[2019-03-27] MEDS: prednisoLONE ACETATE 1% OPH SUSP 5 ML BOTTLE RIGHT EYE SCH ×3 (09:00→18:38)
[2019-03-27] MEDS: TIMOLOL 0.5% OPH SOLN 5 ML BOTTLE RIGHT EYE SCH ×2 (09:01→20:30)
[2019-03-27] MEDS: BRIMONIDINE 0.2% OPH SOLN 5 ML BOTTLE RIGHT EYE SCH ×2 (09:01→20:29)
[2019-03-27] MEDS ORDERED: ceFAZolin 1,000 MG in SYRINGE 1 EACH IV ONE (11:30)
[2019-03-27] MEDS: CIPROFLOXACIN 500 MG TABLET PO SCH (14:05)
[2019-03-27] MEDS: CALCITRIOL 0.25 MCG CAPSULE PO SCH (14:05)
[2019-03-28] MEDS: SODIUM POLYSTYRENE SULFATE 15 GM/60 ML BOTTLE PO SCH ×4 (01:14→21:52)
[2019-03-28 04:52] LABS: Basophils % 0.3 % (0.0-0.8); Eosinophils # 0.7 10*3/uL (0.0-0.87); Eosinophils % 5.5 % (0.00-10.9); Hematocrit 26.4 VOL% (42.0-52.0); Hemoglobin 8.7 GM/DL (14.0-18.0); Immature Granulocytes Absolute 0.12 #; Lymphocytes % 7.8 % (21.2-54.2); Mean Corpuscular Volume 93.6 FL (87-102); Mean Platelet Volume 10.4 FL (9.6-12.0); Monocytes % 4.5 % (1.7-12.7); Neutrophils % 80.9 % (38.7-73.9); Platelet Count 277 T/CUMM (130-400); Red Blood Count 2.82 MC/CUMM (3.8-5.5); Red Cell Distribution Width 14.5 % (9.3-17.3); White Blood Count 12.5 T/CUMM (4-12)
[2019-03-28 05:15] LABS: Calcium 7.4 MG/DL (8.5-10.1); Osmolality,Calculated 301.7 MOS/KG (273-304)
[2019-03-28] MEDS: INSULIN REGULAR 100 UNIT/ML SUBCUT SCH ×4 (07:59→21:52)
[2019-03-28] MEDS: cloNIDine 0.1 MG TABLET PO SCH ×2 (08:00→21:51)
[2019-03-28] MEDS: carvediloL 25 MG TABLET PO SCH ×2 (08:00→17:15)
[2019-03-28] MEDS ORDERED: HEPARIN 5,000 UNIT/1 ML VIAL ONE (08:02)
[2019-03-28] MEDS ORDERED: LIDOCAINE 1% 20 ML VIAL ONE (08:03)
[2019-03-28] MEDS: prednisoLONE ACETATE 1% OPH SUSP 5 ML BOTTLE RIGHT EYE SCH ×5 (08:18→21:53)
[2019-03-28] MEDS: FUROSEMIDE 40 MG/4 ML VIAL IV SCH ×2 (08:26→17:15)
[2019-03-28] MEDS ORDERED: SODIUM CHLORIDE 0.9% 250 ML IV SCH (09:00)
[2019-03-28] MEDS ORDERED: PROPOFOL 200 MG/20 ML VIAL IV ONE (09:43)
[2019-03-28] MEDS ORDERED: MIDAZOLAM 2 MG/2 ML VIAL ONE (09:44)
[2019-03-28] MEDS ORDERED: LIDOCAINE 2% 5 ML VIAL ONE (09:44)
[2019-03-28] MEDS ORDERED: KETAMINE 500 MG/10 ML VIAL ONE (09:45)
[2019-03-28] MEDS ORDERED: fentaNYL 100 MCG/2 ML VIAL ONE (09:45)
[2019-03-28] MEDS ORDERED: SODIUM CHLORIDE 0.9% 100 ML IV ONE (09:45)
[2019-03-28] MEDS ORDERED: HEPARIN 10,000 UNIT/10 ML VIAL IV SCH (11:00)
[2019-03-28 11:35] LABS: Erythropoietin 20.7 mIU/mL (2.6 - 18.5)
[2019-03-28] MEDS: SODIUM BICARBONATE 650 MG TABLET PO SCH ×2 (12:15→21:51)
[2019-03-28] MEDS: TIMOLOL 0.5% OPH SOLN 5 ML BOTTLE RIGHT EYE SCH ×2 (12:15→21:53)
[2019-03-28] MEDS: PANTOPRAZOLE 40 MG TABLET PO SCH (12:15)
[2019-03-28] MEDS: BRIMONIDINE 0.2% OPH SOLN 5 ML BOTTLE RIGHT EYE SCH ×2 (12:15→21:52)
[2019-03-28] MEDS: metOLazone 5 MG TABLET PO SCH (12:15)
[2019-03-28] MEDS: CALCITRIOL 0.25 MCG CAPSULE PO SCH (12:15)
[2019-03-28] MEDS: CETIRIZINE 10 MG TABLET PO SCH (12:15)
[2019-03-28] MEDS: ASPIRIN CHEW 81 MG TABLET PO SCH (12:15)
[2019-03-28] MEDS: CIPROFLOXACIN 500 MG TABLET PO SCH (12:15)
[2019-03-28] MEDS: FOLIC ACID 1 MG TABLET PO SCH (12:15)
[2019-03-28 15:41] LABS: Soluble Transf Receptor (sTfR) 2.9 mg/L (1.8 - 4.6)
[2019-03-28] MEDS: SILVER SULFADIAZINE 1% CREAM 25 GM TUBE TOP SCH (17:00)
[2019-03-28] MEDS: BACITRACIN OINT 0.9 GM PACK TOP SCH (17:00)
[2019-03-28] MEDS: COLLAGENASE OINT 30 GM TUBE TOP SCH (17:00)
[2019-03-29] MEDS: SODIUM POLYSTYRENE SULFATE 15 GM/60 ML BOTTLE PO SCH ×4 (02:12→22:30)
[2019-03-29 06:16] LABS: Basophils % 0.1 % (0.0-0.8); Eosinophils # 0.6 10*3/uL (0.0-0.87); Eosinophils % 4.7 % (0.00-10.9); Hematocrit 24.9 VOL% (42.0-52.0); Hemoglobin 8.2 GM/DL (14.0-18.0); Immature Granulocytes % 0.6 %; Immature Granulocytes Absolute 0.08 #; Lymphocytes # 0.8 10*3/uL (1.4-4.0); Lymphocytes % 6.1 % (21.2-54.2); Mean Corpuscular HGB Conc 32.9 GM/DL (32-36); Mean Corpuscular Volume 92.6 FL (87-102); Mean Platelet Volume 10.2 FL (9.6-12.0); Monocytes % 6.8 % (1.7-12.7); Neutrophils % 81.7 % (38.7-73.9); Platelet Count 273 T/CUMM (130-400); Red Blood Count 2.69 MC/CUMM (3.8-5.5); Red Cell Distribution Width 14.6 % (9.3-17.3); White Blood Count 13.4 T/CUMM (4-12)
[2019-03-29 06:36] LABS: Calcium 7.9 MG/DL (8.5-10.1); Osmolality,Calculated 303.1 MOS/KG (273-304)
[2019-03-29] MEDS: SODIUM BICARBONATE 650 MG TABLET PO SCH (08:14)
[2019-03-29] MEDS: ASPIRIN CHEW 81 MG TABLET PO SCH (08:14)
[2019-03-29] MEDS: metOLazone 5 MG TABLET PO SCH (08:15)
[2019-03-29] MEDS: CALCITRIOL 0.25 MCG CAPSULE PO SCH (08:15)
[2019-03-29] MEDS: carvediloL 25 MG TABLET PO SCH ×2 (08:15→16:47)
[2019-03-29] MEDS: FOLIC ACID 1 MG TABLET PO SCH (08:15)
[2019-03-29] MEDS: PANTOPRAZOLE 40 MG TABLET PO SCH (08:15)
[2019-03-29] MEDS: cloNIDine 0.1 MG TABLET PO SCH ×2 (08:15→22:25)
[2019-03-29] MEDS: CIPROFLOXACIN 500 MG TABLET PO SCH (08:15)
[2019-03-29] MEDS: FUROSEMIDE 40 MG/4 ML VIAL IV SCH ×2 (08:15→16:46)
[2019-03-29] MEDS: CETIRIZINE 10 MG TABLET PO SCH (08:15)
[2019-03-29] MEDS: TIMOLOL 0.5% OPH SOLN 5 ML BOTTLE RIGHT EYE SCH ×2 (08:16→22:24)
[2019-03-29] MEDS: prednisoLONE ACETATE 1% OPH SUSP 5 ML BOTTLE RIGHT EYE SCH ×4 (08:16→22:24)
[2019-03-29] MEDS: BRIMONIDINE 0.2% OPH SOLN 5 ML BOTTLE RIGHT EYE SCH ×2 (08:16→22:27)
[2019-03-29] MEDS: INSULIN REGULAR 100 UNIT/ML SUBCUT SCH ×4 (08:31→22:30)
[2019-03-29 15:17] LABS: Hepatitis B Core IgM Quant 0.11 Index; Hepatitis B Surface Ag Quant < 0.10 Index; Hepatitis B Surface Ag Result Negative (Negative); Hepatitis C Virus Ab Quant 0.05 Index; Hepatitis C Virus Ab Result Negative (Negative)
[2019-03-29] MEDS: COLLAGENASE OINT 30 GM TUBE TOP SCH (17:39)
[2019-03-29] MEDS: SILVER SULFADIAZINE 1% CREAM 25 GM TUBE TOP SCH (17:39)
[2019-03-29] MEDS: BACITRACIN OINT 0.9 GM PACK TOP SCH (17:39)
[2019-03-30] MEDS: SODIUM POLYSTYRENE SULFATE 15 GM/60 ML BOTTLE PO SCH ×4 (01:41→19:45)
[2019-03-30 06:58] LABS: Basophils % 0.2 % (0.0-0.8); Eosinophils # 0.7 10*3/uL (0.0-0.87); Eosinophils % 5.8 % (0.00-10.9); Hematocrit 25.1 VOL% (42.0-52.0); Hemoglobin 8.2 GM/DL (14.0-18.0); Immature Granulocytes % 0.8 %; Lymphocytes # 0.9 10*3/uL (1.4-4.0); Lymphocytes % 6.7 % (21.2-54.2); Mean Corpuscular HGB Conc 32.7 GM/DL (32-36); Mean Platelet Volume 10.2 FL (9.6-12.0); Monocytes % 7.8 % (1.7-12.7); Neutrophils % 78.7 % (38.7-73.9); Platelet Count 271 T/CUMM (130-400); Red Blood Count 2.67 MC/CUMM (3.8-5.5); Red Cell Distribution Width 14.9 % (9.3-17.3); White Blood Count 12.8 T/CUMM (4-12)
[2019-03-30 07:25] LABS: Calcium 7.9 MG/DL (8.5-10.1); Osmolality,Calculated 303.4 MOS/KG (273-304)
[2019-03-30] MEDS: FOLIC ACID 1 MG TABLET PO SCH (08:30)
[2019-03-30] MEDS: CETIRIZINE 10 MG TABLET PO SCH (08:30)
[2019-03-30] MEDS: metOLazone 5 MG TABLET PO SCH (08:30)
[2019-03-30] MEDS: cloNIDine 0.1 MG TABLET PO SCH ×2 (08:31→21:07)
[2019-03-30] MEDS: PANTOPRAZOLE 40 MG TABLET PO SCH (08:31)
[2019-03-30] MEDS: CIPROFLOXACIN 500 MG TABLET PO SCH (08:31)
[2019-03-30] MEDS: CALCITRIOL 0.25 MCG CAPSULE PO SCH (08:31)
[2019-03-30] MEDS: ASPIRIN CHEW 81 MG TABLET PO SCH (08:31)
[2019-03-30] MEDS: carvediloL 25 MG TABLET PO SCH ×2 (08:31→17:17)
[2019-03-30] MEDS: TIMOLOL 0.5% OPH SOLN 5 ML BOTTLE RIGHT EYE SCH ×2 (08:32→21:10)
[2019-03-30] MEDS: INSULIN REGULAR 100 UNIT/ML SUBCUT SCH ×4 (08:32→21:07)
[2019-03-30] MEDS: BRIMONIDINE 0.2% OPH SOLN 5 ML BOTTLE RIGHT EYE SCH ×2 (08:32→21:10)
[2019-03-30] MEDS: prednisoLONE ACETATE 1% OPH SUSP 5 ML BOTTLE RIGHT EYE SCH ×4 (08:32→21:10)
[2019-03-30] MEDS: FUROSEMIDE 40 MG/4 ML VIAL IV SCH ×2 (08:32→18:04)
[2019-03-30] MEDS: COLLAGENASE OINT 30 GM TUBE TOP SCH (09:00)
[2019-03-30] MEDS: BACITRACIN OINT 0.9 GM PACK TOP SCH (09:00)
[2019-03-30] MEDS: SILVER SULFADIAZINE 1% CREAM 25 GM TUBE TOP SCH (09:02)
[2019-03-30] MEDS: FUROSEMIDE 80 MG TABLET PO SCH (18:07)
[2019-03-31] MEDS: SODIUM POLYSTYRENE SULFATE 15 GM/60 ML BOTTLE PO SCH ×4 (00:53→20:16)
[2019-03-31 05:10] LABS: Basophils % 0.3 % (0.0-0.8); Eosinophils % 7.4 % (0.00-10.9); Hematocrit 25.7 VOL% (42.0-52.0); Hemoglobin 8.3 GM/DL (14.0-18.0); Immature Granulocytes % 0.7 %; Immature Granulocytes Absolute 0.09 #; Lymphocytes # 0.8 10*3/uL (1.4-4.0); Lymphocytes % 6.2 % (21.2-54.2); Mean Corpuscular HGB Conc 32.3 GM/DL (32-36); Mean Corpuscular Volume 94.1 FL (87-102); Monocytes % 7.4 % (1.7-12.7); Platelet Count 282 T/CUMM (130-400); Red Blood Count 2.73 MC/CUMM (3.8-5.5); Red Cell Distribution Width 14.7 % (9.3-17.3); White Blood Count 13.5 T/CUMM (4-12)
[2019-03-31 05:42] LABS: Calcium 8.4 MG/DL (8.5-10.1); Osmolality,Calculated 291.3 MOS/KG (273-304)
[2019-03-31] MEDS: INSULIN REGULAR 100 UNIT/ML SUBCUT SCH ×4 (08:26→20:44)
[2019-03-31] MEDS: FOLIC ACID 1 MG TABLET PO SCH (08:46)
[2019-03-31] MEDS: cloNIDine 0.1 MG TABLET PO SCH ×2 (08:46→20:44)
[2019-03-31] MEDS: PANTOPRAZOLE 40 MG TABLET PO SCH (08:46)
[2019-03-31] MEDS: CALCITRIOL 0.25 MCG CAPSULE PO SCH (08:46)
[2019-03-31] MEDS: carvediloL 25 MG TABLET PO SCH ×2 (08:46→17:30)
[2019-03-31] MEDS: FUROSEMIDE 80 MG TABLET PO SCH ×2 (08:46→17:30)
[2019-03-31] MEDS: CETIRIZINE 10 MG TABLET PO SCH (08:47)
[2019-03-31] MEDS: CIPROFLOXACIN 500 MG TABLET PO SCH (08:47)
[2019-03-31] MEDS: metOLazone 5 MG TABLET PO SCH (08:47)
[2019-03-31] MEDS: BRIMONIDINE 0.2% OPH SOLN 5 ML BOTTLE RIGHT EYE SCH ×2 (08:47→21:04)
[2019-03-31] MEDS: TIMOLOL 0.5% OPH SOLN 5 ML BOTTLE RIGHT EYE SCH ×2 (08:47→21:04)
[2019-03-31] MEDS: ASPIRIN CHEW 81 MG TABLET PO SCH (08:47)
[2019-03-31] MEDS: prednisoLONE ACETATE 1% OPH SUSP 5 ML BOTTLE RIGHT EYE SCH ×4 (08:48→21:04)
[2019-03-31] MEDS: COLLAGENASE OINT 30 GM TUBE TOP SCH (10:25)
[2019-03-31] MEDS: SILVER SULFADIAZINE 1% CREAM 25 GM TUBE TOP SCH (10:25)
[2019-03-31] MEDS: BACITRACIN OINT 0.9 GM PACK TOP SCH (10:25)
[2019-04-01] MEDS: SODIUM POLYSTYRENE SULFATE 15 GM/60 ML BOTTLE PO SCH ×4 (00:30→19:34)
[2019-04-01] MEDS: INSULIN REGULAR 100 UNIT/ML SUBCUT SCH ×4 (08:00→20:40)
[2019-04-01] MEDS: metOLazone 5 MG TABLET PO SCH (08:56)
[2019-04-01] MEDS: PANTOPRAZOLE 40 MG TABLET PO SCH (08:56)
[2019-04-01] MEDS: CETIRIZINE 10 MG TABLET PO SCH (08:56)
[2019-04-01] MEDS: cloNIDine 0.1 MG TABLET PO SCH ×2 (08:57→20:39)
[2019-04-01] MEDS: CALCITRIOL 0.25 MCG CAPSULE PO SCH (08:57)
[2019-04-01] MEDS: ASPIRIN CHEW 81 MG TABLET PO SCH (08:57)
[2019-04-01] MEDS: FUROSEMIDE 80 MG TABLET PO SCH ×2 (08:57→16:13)
[2019-04-01] MEDS: carvediloL 25 MG TABLET PO SCH ×2 (08:57→16:13)
[2019-04-01] MEDS: CIPROFLOXACIN 500 MG TABLET PO SCH (08:57)
[2019-04-01] MEDS: TIMOLOL 0.5% OPH SOLN 5 ML BOTTLE RIGHT EYE SCH ×2 (08:58→20:40)
[2019-04-01] MEDS: FOLIC ACID 1 MG TABLET PO SCH (08:58)
[2019-04-01] MEDS: prednisoLONE ACETATE 1% OPH SUSP 5 ML BOTTLE RIGHT EYE SCH ×4 (08:58→20:40)
[2019-04-01] MEDS: BRIMONIDINE 0.2% OPH SOLN 5 ML BOTTLE RIGHT EYE SCH ×2 (08:59→20:40)
[2019-04-01 10:14] LABS: Basophils % 0.2 % (0.0-0.8); Eosinophils # 1.1 10*3/uL (0.0-0.87); Eosinophils % 8.4 % (0.00-10.9); Hematocrit 28.5 VOL% (42.0-52.0); Hemoglobin 9.1 GM/DL (14.0-18.0); Immature Granulocytes % 0.8 %; Lymphocytes # 0.8 10*3/uL (1.4-4.0); Lymphocytes % 6.3 % (21.2-54.2); Mean Corpuscular HGB Conc 31.9 GM/DL (32-36); Mean Corpuscular Volume 94.4 FL (87-102); Mean Platelet Volume 9.3 FL (9.6-12.0); Monocytes % 7.2 % (1.7-12.7); Neutrophils % 77.1 % (38.7-73.9); Platelet Count 311 T/CUMM (130-400); Red Blood Count 3.02 MC/CUMM (3.8-5.5); Red Cell Distribution Width 14.5 % (9.3-17.3); White Blood Count 13.2 T/CUMM (4-12)
[2019-04-01 10:30] LABS: Calcium 8.5 MG/DL (8.5-10.1)
[2019-04-01] MEDS: BACITRACIN OINT 0.9 GM PACK TOP SCH (12:31)
[2019-04-01] MEDS: SILVER SULFADIAZINE 1% CREAM 25 GM TUBE TOP SCH (12:31)
[2019-04-01] MEDS: COLLAGENASE OINT 30 GM TUBE TOP SCH (12:31)
[2019-04-02] MEDS: SODIUM POLYSTYRENE SULFATE 15 GM/60 ML BOTTLE PO SCH ×4 (00:31→20:46)
[2019-04-02 05:23] LABS: Basophils % 0.2 % (0.0-0.8); Eosinophils # 1.2 10*3/uL (0.0-0.87); Hematocrit 25.3 VOL% (42.0-52.0); Hemoglobin 8.2 GM/DL (14.0-18.0); Immature Granulocytes % 0.7 %; Immature Granulocytes Absolute 0.09 #; Lymphocytes # 1.2 10*3/uL (1.4-4.0); Lymphocytes % 9.4 % (21.2-54.2); Mean Corpuscular HGB Conc 32.4 GM/DL (32-36); Mean Corpuscular Volume 94.4 FL (87-102); Mean Platelet Volume 9.5 FL (9.6-12.0); Monocytes % 7.2 % (1.7-12.7); Neutrophils % 73.5 % (38.7-73.9); Platelet Count 310 T/CUMM (130-400); Red Blood Count 2.68 MC/CUMM (3.8-5.5); Red Cell Distribution Width 14.5 % (9.3-17.3); White Blood Count 13.2 T/CUMM (4-12)
[2019-04-02 05:50] LABS: Calcium 8.2 MG/DL (8.5-10.1); Osmolality,Calculated 292.3 MOS/KG (273-304)
[2019-04-02] MEDS: INSULIN REGULAR 100 UNIT/ML SUBCUT SCH ×4 (07:34→20:46)
[2019-04-02] MEDS ORDERED: FAMOTIDINE 20 MG TABLET PO ONE (09:29)
[2019-04-02] MEDS: ASPIRIN CHEW 81 MG TABLET PO SCH (09:46)
[2019-04-02] MEDS: PANTOPRAZOLE 40 MG TABLET PO SCH (09:46)
[2019-04-02] MEDS: BACITRACIN OINT 0.9 GM PACK TOP SCH (09:46)
[2019-04-02] MEDS: cloNIDine 0.1 MG TABLET PO SCH ×3 (09:46→20:46)
[2019-04-02] MEDS: carvediloL 25 MG TABLET PO SCH ×2 (09:46→18:18)
[2019-04-02] MEDS: FUROSEMIDE 80 MG TABLET PO SCH ×2 (09:46→15:33)
[2019-04-02] MEDS: CIPROFLOXACIN 500 MG TABLET PO SCH (09:46)
[2019-04-02] MEDS: BRIMONIDINE 0.2% OPH SOLN 5 ML BOTTLE RIGHT EYE SCH ×2 (09:46→20:50)
[2019-04-02] MEDS: FOLIC ACID 1 MG TABLET PO SCH (09:47)
[2019-04-02] MEDS: prednisoLONE ACETATE 1% OPH SUSP 5 ML BOTTLE RIGHT EYE SCH ×4 (09:47→20:47)
[2019-04-02] MEDS: CALCITRIOL 0.25 MCG CAPSULE PO SCH (09:47)
[2019-04-02] MEDS: COLLAGENASE OINT 30 GM TUBE TOP SCH (09:47)
[2019-04-02] MEDS: metOLazone 5 MG TABLET PO SCH (09:47)
[2019-04-02] MEDS: CETIRIZINE 10 MG TABLET PO SCH (09:47)
[2019-04-02] MEDS: TIMOLOL 0.5% OPH SOLN 5 ML BOTTLE RIGHT EYE SCH ×2 (09:47→20:48)
[2019-04-02] MEDS: SILVER SULFADIAZINE 1% CREAM 25 GM TUBE TOP SCH (09:47)
[2019-04-02] MEDS ORDERED: LIDOCAINE 1% 20 ML VIAL ONE (11:34)
[2019-04-02] MEDS ORDERED: MIDAZOLAM 2 MG/2 ML VIAL ONE (12:59)
[2019-04-02] MEDS ORDERED: LIDOCAINE 2% 5 ML VIAL ONE (12:59)
[2019-04-02] MEDS ORDERED: PROPOFOL 200 MG/20 ML VIAL IV ONE (12:59)
[2019-04-02] MEDS ORDERED: fentaNYL 100 MCG/2 ML VIAL ONE (13:00)
[2019-04-02] MEDS ORDERED: hydrALAZINE 20 MG/1 ML VIAL ONE (13:21)
[2019-04-02] MEDS ORDERED: hydrALAZINE 20 MG/1 ML VIAL IV ONE (13:23)
[2019-04-03] MEDS: SODIUM POLYSTYRENE SULFATE 15 GM/60 ML BOTTLE PO SCH ×3 (00:47→12:49)
[2019-04-03 05:01] LABS: Basophils % 0.3 % (0.0-0.8); Eosinophils # 1.1 10*3/uL (0.0-0.87); Eosinophils % 9.5 % (0.00-10.9); Hematocrit 25.6 VOL% (42.0-52.0); Hemoglobin 8.2 GM/DL (14.0-18.0); Immature Granulocytes % 0.7 %; Immature Granulocytes Absolute 0.08 #; Lymphocytes # 1.1 10*3/uL (1.4-4.0); Lymphocytes % 9.8 % (21.2-54.2); Mean Corpuscular Volume 95.2 FL (87-102); Mean Platelet Volume 9.1 FL (9.6-12.0); Monocytes % 7.1 % (1.7-12.7); Neutrophils % 72.6 % (38.7-73.9); Platelet Count 317 T/CUMM (130-400); Red Blood Count 2.69 MC/CUMM (3.8-5.5); Red Cell Distribution Width 14.4 % (9.3-17.3); White Blood Count 11.3 T/CUMM (4-12)
[2019-04-03 05:28] LABS: Calcium 8.5 MG/DL (8.5-10.1); Osmolality,Calculated 292.5 MOS/KG (273-304)
[2019-04-03] MEDS: INSULIN REGULAR 100 UNIT/ML SUBCUT SCH ×4 (07:19→21:11)
[2019-04-03] MEDS: BRIMONIDINE 0.2% OPH SOLN 5 ML BOTTLE RIGHT EYE SCH ×2 (08:04→21:15)
[2019-04-03] MEDS: BACITRACIN OINT 0.9 GM PACK TOP SCH (08:04)
[2019-04-03] MEDS: cloNIDine 0.1 MG TABLET PO SCH ×4 (08:04→21:13)
[2019-04-03] MEDS: carvediloL 25 MG TABLET PO SCH ×3 (08:04→16:34)
[2019-04-03] MEDS: ASPIRIN CHEW 81 MG TABLET PO SCH (08:04)
[2019-04-03] MEDS: FUROSEMIDE 80 MG TABLET PO SCH ×2 (08:04→16:33)
[2019-04-03] MEDS: CIPROFLOXACIN 500 MG TABLET PO SCH (08:05)
[2019-04-03] MEDS: prednisoLONE ACETATE 1% OPH SUSP 5 ML BOTTLE RIGHT EYE SCH ×4 (08:06→21:15)
[2019-04-03] MEDS: FOLIC ACID 1 MG TABLET PO SCH (08:06)
[2019-04-03] MEDS: PANTOPRAZOLE 40 MG TABLET PO SCH (08:09)
[2019-04-03] MEDS: CALCITRIOL 0.25 MCG CAPSULE PO SCH (08:09)
[2019-04-03] MEDS: SILVER SULFADIAZINE 1% CREAM 25 GM TUBE TOP SCH (08:09)
[2019-04-03] MEDS: TIMOLOL 0.5% OPH SOLN 5 ML BOTTLE RIGHT EYE SCH ×2 (08:09→21:15)
[2019-04-03] MEDS: COLLAGENASE OINT 30 GM TUBE TOP SCH (08:09)
[2019-04-03] MEDS: metOLazone 5 MG TABLET PO SCH (08:10)
[2019-04-03] MEDS: CETIRIZINE 10 MG TABLET PO SCH (08:10)
[2019-04-04 04:47] LABS: Basophils % 0.3 % (0.0-0.8); Eosinophils # 1.1 10*3/uL (0.0-0.87); Eosinophils % 8.2 % (0.00-10.9); Hematocrit 28.8 VOL% (42.0-52.0); Hemoglobin 9.1 GM/DL (14.0-18.0); Immature Granulocytes % 0.9 %; Immature Granulocytes Absolute 0.12 #; Lymphocytes # 1.3 10*3/uL (1.4-4.0); Mean Corpuscular HGB Conc 31.6 GM/DL (32-36); Mean Platelet Volume 9.4 FL (9.6-12.0); Monocytes % 8.5 % (1.7-12.7); Neutrophils % 72.1 % (38.7-73.9); Platelet Count 356 T/CUMM (130-400); Red Cell Distribution Width 14.3 % (9.3-17.3); White Blood Count 12.7 T/CUMM (4-12)
[2019-04-04 05:18] LABS: Osmolality,Calculated 288.5 MOS/KG (273-304)
[2019-04-04] MEDS: SODIUM POLYSTYRENE SULFATE 15 GM/60 ML BOTTLE PO SCH (08:33)
[2019-04-04] MEDS: INSULIN REGULAR 100 UNIT/ML SUBCUT SCH ×2 (08:33→12:23)
[2019-04-04] MEDS: BRIMONIDINE 0.2% OPH SOLN 5 ML BOTTLE RIGHT EYE SCH (09:10)
[2019-04-04] MEDS: FUROSEMIDE 80 MG TABLET PO SCH (09:10)
[2019-04-04] MEDS: FOLIC ACID 1 MG TABLET PO SCH (09:11)
[2019-04-04] MEDS: cloNIDine 0.1 MG TABLET PO SCH (09:11)
[2019-04-04] MEDS: CALCITRIOL 0.25 MCG CAPSULE PO SCH (09:11)
[2019-04-04] MEDS: metOLazone 5 MG TABLET PO SCH (09:11)
[2019-04-04] MEDS: CETIRIZINE 10 MG TABLET PO SCH (09:11)
[2019-04-04] MEDS: ASPIRIN CHEW 81 MG TABLET PO SCH (09:12)
[2019-04-04] MEDS: PANTOPRAZOLE 40 MG TABLET PO SCH (09:12)
[2019-04-04] MEDS: prednisoLONE ACETATE 1% OPH SUSP 5 ML BOTTLE RIGHT EYE SCH (09:14)
[2019-04-04] MEDS: SILVER SULFADIAZINE 1% CREAM 25 GM TUBE TOP SCH (09:15)
[2019-04-04] MEDS: COLLAGENASE OINT 30 GM TUBE TOP SCH (09:15)
[2019-04-04] MEDS: BACITRACIN OINT 0.9 GM PACK TOP SCH (09:15)
[2019-04-04] MEDS: TIMOLOL 0.5% OPH SOLN 5 ML BOTTLE RIGHT EYE SCH (09:15)
[2019-04-04] MEDS: carvediloL 25 MG TABLET PO SCH (09:20)
[2019-04-04 11:53] VITALS: BP 172/96
== END 2019-04-04 12:16 | disposition home or self-care (01) | DRG 570 ==
LOC: N.3E → SUATTDRO 19:34
PROVIDERS: ADMIT Internal Medicine; ATTEND Hospitalist

== ENCOUNTER 2019-10-19 13:12 | Inpatient (IN) ==
[2019-10-19] MEDS ORDERED: DEXTROSE 10% 250 ML BAG IV PRN (17:00)
[2019-10-19] MEDS ORDERED: ONDANSETRON 4 MG/2 ML VIAL IV PRN (17:00)
[2019-10-19] MEDS ORDERED: GLUCAGON 1 MG VIAL IM PRN (17:00)
[2019-10-19] MEDS ORDERED: ZINC SULFATE 220 MG CAPSULE PO SCH (17:30)
[2019-10-19 18:24] LABS: Ferritin 1399.3 ng/ml (26-388)
[2019-10-19] MEDS: INSULIN LISPRO 100 UNIT/ML SUBCUT SCH (22:24)
[2019-10-20 01:12] LABS: Apearance,Urine Slightly Hazy (Clear); Bacteria,Urine Moderate /HPF (Few); Bilirubin,Urine Negative (Negative); Blood, Urine Negative (Negative); Glucose,Urine (UA) 150 mg/dL (Negative); Ketones,Urine Negative (Negative); Mucus,Urine Occasional /LPF (Occasional); Nitrite,Urine Negative (Negative); Protein,Urine >=500 MG/DL; RBC,Urine 8 /HPF (0-4); Sperm,Urine Moderate /HPF (Negative); Squamous Epithelial Cell,Urine Occasional /HPF (0-10); Urine Color Yellow (Yellow); Urine Specific Gravity 1.016 (1.001-1.035); Urine Urobilinogen < 2.0 EU/DL (0.2-1.0); WBC,Urine 5 /HPF (0-6)
[2019-10-20 06:07] LABS: Basophils % 0.2 % (0.0-0.8); Eosinophils # 0.2 10*3/uL (0.0-0.87); Eosinophils % 1.1 % (0.00-10.9); Hematocrit 26.1 VOL% (42.0-52.0); Hemoglobin 9.1 GM/DL (14.0-18.0); Immature Granulocytes % 0.6 %; Immature Granulocytes Absolute 0.09 #; Lymphocytes % 6.6 % (21.2-54.2); Mean Corpuscular HGB Conc 34.9 GM/DL (32-36); Mean Corpuscular Volume 90.9 FL (87-102); Mean Platelet Volume 9.4 FL (9.6-12.0); Monocytes % 6.1 % (1.7-12.7); Neutrophils % 85.4 % (38.7-73.9); Platelet Count 421 T/CUMM (130-400); Red Blood Count 2.87 MC/CUMM (3.8-5.5); Red Cell Distribution Width 14.2 % (9.3-17.3); White Blood Count 15.3 T/CUMM (4-12)
[2019-10-20 06:33] LABS: Albumin 2.6 G/DL (3.4-5.0); Bilirubin,Total 1.2 MG/DL (0.2-1.0); Calcium 8.1 MG/DL (8.5-10.1); Osmolality,Calculated 276.1 MOS/KG (273-304); Total Protein 7.4 G/DL (6.4-8.3)
[2019-10-20] MEDS: ACETAMINOPHEN 325 MG TABLET PO PRN ×2 (09:31→20:58)
[2019-10-20] MEDS: PANTOPRAZOLE 40 MG TABLET PO SCH (09:31)
[2019-10-20] MEDS: cefTRIAXone 1,000 MG in SYRINGE 1 EACH IV SCH (09:31)
[2019-10-20] MEDS: INSULIN LISPRO 100 UNIT/ML SUBCUT SCH ×4 (09:31→20:58)
[2019-10-20] MEDS: AZITHROMYCIN INJ 500 MG in SODIUM CHLORIDE 0.9% 250 ML IV SCH (09:31)
[2019-10-20] MEDS: POTASSIUM CHLORIDE 20 MEQ TABLET PO PRN ×3 (17:19→22:13)
[2019-10-21] MEDS: POTASSIUM CHLORIDE 20 MEQ TABLET PO PRN (00:49)
[2019-10-21 05:32] LABS: Basophils % 0.2 % (0.0-0.8); Eosinophils # 0.2 10*3/uL (0.0-0.87); Eosinophils % 1.8 % (0.00-10.9); Hematocrit 25.8 VOL% (42.0-52.0); Hemoglobin 8.6 GM/DL (14.0-18.0); Immature Granulocytes % 0.6 %; Immature Granulocytes Absolute 0.07 #; Lymphocytes # 1.3 10*3/uL (1.4-4.0); Lymphocytes % 10.5 % (21.2-54.2); Mean Corpuscular HGB Conc 33.3 GM/DL (32-36); Mean Corpuscular Volume 93.5 FL (87-102); Mean Platelet Volume 9.6 FL (9.6-12.0); Monocytes % 6.3 % (1.7-12.7); Neutrophils % 80.6 % (38.7-73.9); Platelet Count 435 T/CUMM (130-400); Red Blood Count 2.76 MC/CUMM (3.8-5.5); Red Cell Distribution Width 13.9 % (9.3-17.3); White Blood Count 12.5 T/CUMM (4-12)
[2019-10-21 06:24] LABS: Albumin 2.5 G/DL (3.4-5.0); Bilirubin,Total 1.3 MG/DL (0.2-1.0); Calcium 8.4 MG/DL (8.5-10.1); Osmolality,Calculated 281.8 MOS/KG (273-304); Total Protein 7.6 G/DL (6.4-8.3)
[2019-10-21] MEDS: SODIUM BICARBONATE 650 MG TABLET PO SCH ×2 (08:39→21:00)
[2019-10-21] MEDS: ZINC SULFATE 220 MG CAPSULE PO SCH (08:39)
[2019-10-21] MEDS: ACETAMINOPHEN 325 MG TABLET PO PRN (08:39)
[2019-10-21] MEDS: PANTOPRAZOLE 40 MG TABLET PO SCH (08:39)
[2019-10-21] MEDS: carvediloL 25 MG TABLET PO SCH ×2 (08:39→17:14)
[2019-10-21] MEDS: cefTRIAXone 1,000 MG in SYRINGE 1 EACH IV SCH (08:39)
[2019-10-21] MEDS: AZITHROMYCIN INJ 500 MG in SODIUM CHLORIDE 0.9% 250 ML IV SCH (08:39)
[2019-10-21] MEDS: INSULIN LISPRO 100 UNIT/ML SUBCUT SCH ×4 (08:39→21:00)
[2019-10-21] MEDS ORDERED: TIMOLOL MALEATE RIGHT EYE SCH (09:00)
[2019-10-22 05:48] LABS: Basophils % 0.3 % (0.0-0.8); Eosinophils # 0.3 10*3/uL (0.0-0.87); Eosinophils % 2.7 % (0.00-10.9); Hematocrit 21.7 VOL% (42.0-52.0); Hemoglobin 7.2 GM/DL (14.0-18.0); Immature Granulocytes % 0.5 %; Immature Granulocytes Absolute 0.05 #; Lymphocytes # 1.3 10*3/uL (1.4-4.0); Lymphocytes % 12.1 % (21.2-54.2); Mean Corpuscular HGB Conc 33.2 GM/DL (32-36); Mean Corpuscular Volume 93.9 FL (87-102); Mean Platelet Volume 9.6 FL (9.6-12.0); Monocytes % 7.5 % (1.7-12.7); Neutrophils % 76.9 % (38.7-73.9); Platelet Count 398 T/CUMM (130-400); Red Blood Count 2.31 MC/CUMM (3.8-5.5); Red Cell Distribution Width 14.1 % (9.3-17.3); White Blood Count 10.6 T/CUMM (4-12)
[2019-10-22 06:06] LABS: Albumin 2.3 G/DL (3.4-5.0); Bilirubin,Total 1.3 MG/DL (0.2-1.0); Calcium 7.9 MG/DL (8.5-10.1); Osmolality,Calculated 288.8 MOS/KG (273-304); Total Protein 7.1 G/DL (6.4-8.3)
[2019-10-22] MEDS: INSULIN LISPRO 100 UNIT/ML SUBCUT SCH ×4 (09:12→20:49)
[2019-10-22] MEDS: carvediloL 25 MG TABLET PO SCH ×2 (09:13→16:47)
[2019-10-22] MEDS: PANTOPRAZOLE 40 MG TABLET PO SCH (09:13)
[2019-10-22] MEDS: cefTRIAXone 1,000 MG in SYRINGE 1 EACH IV SCH (09:13)
[2019-10-22] MEDS: AZITHROMYCIN 250 MG TABLET PO SCH (09:14)
[2019-10-22] MEDS: SODIUM BICARBONATE 650 MG TABLET PO SCH ×2 (09:14→20:49)
[2019-10-23 06:24] LABS: Albumin 2.5 G/DL (3.4-5.0); Bilirubin,Total 0.6 MG/DL (0.2-1.0); Calcium 8.3 MG/DL (8.5-10.1); Osmolality,Calculated 270.4 MOS/KG (273-304); Total Protein 7.4 G/DL (6.4-8.3)
[2019-10-23] MEDS: INSULIN LISPRO 100 UNIT/ML SUBCUT SCH ×4 (09:01→20:20)
[2019-10-23] MEDS: SODIUM BICARBONATE 650 MG TABLET PO SCH ×2 (09:01→20:20)
[2019-10-23] MEDS: carvediloL 25 MG TABLET PO SCH ×2 (09:01→17:55)
[2019-10-23] MEDS: ZINC SULFATE 220 MG CAPSULE PO SCH (09:01)
[2019-10-23] MEDS: AZITHROMYCIN 250 MG TABLET PO SCH (09:01)
[2019-10-23] MEDS: PANTOPRAZOLE 40 MG TABLET PO SCH (09:01)
[2019-10-23] MEDS: cefTRIAXone 1,000 MG in SYRINGE 1 EACH IV SCH (09:36)
[2019-10-23] MEDS ORDERED: carvediloL 12.5 MG TABLET PO SCH (18:18)
[2019-10-23] MEDS ORDERED: KETOROLAC 30 MG/1 ML VIAL IV ONE (18:18)
[2019-10-24] MEDS: INSULIN LISPRO 100 UNIT/ML SUBCUT SCH ×2 (07:52→11:27)
[2019-10-24 08:01] VITALS: BP 119/64
[2019-10-24] MEDS: cefTRIAXone 1,000 MG in SYRINGE 1 EACH IV SCH (08:01)
[2019-10-24] MEDS: AZITHROMYCIN 250 MG TABLET PO SCH (08:01)
[2019-10-24] MEDS: SODIUM BICARBONATE 650 MG TABLET PO SCH (08:01)
[2019-10-24] MEDS: PANTOPRAZOLE 40 MG TABLET PO SCH (08:01)
[2019-10-24] MEDS ORDERED: HEPARIN 10,000 UNIT/10 ML VIAL IV PRN (13:29)
== END 2019-10-24 14:06 | disposition home or self-care (01) | DRG 193 ==
LOC: N.2E → SUATTDRO 16:59
PROVIDERS: ADMIT Internal Medicine; ATTEND Internal Medicine

== ENCOUNTER 2019-12-26 18:17 | Inpatient (IN) ==
[2019-12-26] MEDS ORDERED: methylPREDNISolone SOD SUC 125 MG/2 ML VIAL IV STA (18:40)
[2019-12-26] MEDS ORDERED: AZITHROMYCIN INJ 500 MG in SODIUM CHLORIDE 0.9% 250 ML IV STA (18:40)
[2019-12-26] MEDS ORDERED: ONDANSETRON 4 MG/2 ML VIAL IV STA (18:40)
[2019-12-26 19:33] LABS: Basophils # 0.1 10*3/uL (0.0-0.2); Basophils % 0.4 % (0.0-0.8); Eosinophils # 0.1 10*3/uL (0.0-0.87); Eosinophils % 0.9 % (0.00-10.9); Hematocrit 28.3 VOL% (42.0-52.0); Hemoglobin 9.1 GM/DL (14.0-18.0); Immature Granulocytes % 0.4 %; Immature Granulocytes Absolute 0.06 #; Lymphocytes # 1.1 10*3/uL (1.4-4.0); Lymphocytes % 8.5 % (21.2-54.2); Mean Corpuscular HGB Conc 32.2 GM/DL (32-36); Mean Platelet Volume 9.5 FL (9.6-12.0); Monocytes % 5.5 % (1.7-12.7); Neutrophils % 84.3 % (38.7-73.9); Platelet Count 287 T/CUMM (130-400); Red Blood Count 3.01 MC/CUMM (3.8-5.5); Red Cell Distribution Width 16.5 % (9.3-17.3); White Blood Count 13.4 T/CUMM (4-12)
[2019-12-26 19:44] LABS: INR 1.2; Partial Thromboplastin Time 35.7 SECS (23.9-33.8)
[2019-12-26 19:58] LABS: Alanine Aminotransferase 18 U/L (16-61); Albumin 2.6 G/DL (3.4-5.0); Alkaline Phosphatase 174 U/L (45-117); Aspartate Amino Transferase 26 U/L (0-37); Blood Urea Nitrogen 59 MG/DL (7-18); Calcium 8.2 MG/DL (8.5-10.1); Estimated Glom Filtration Rate 12 ML/MIN; Ferritin 1934.3 ng/ml (26-388); Glucose 104 MG/DL (74-106); Osmolality,Calculated 278.7 MOS/KG (273-304); Total Protein 7.8 G/DL (6.4-8.3)
[2019-12-26 20:15] LABS: Troponin I 0.046 NG/ML (0.00-0.045)
[2019-12-26] MEDS ORDERED: DEXTROSE 50% 25 GM/50 ML VIAL IV PRN (21:44)
[2019-12-26] MEDS ORDERED: DEXTROSE 10% 250 ML BAG IV PRN (21:44)
[2019-12-26] MEDS ORDERED: GLUCAGON 1 MG VIAL IM PRN ×2 (21:44)
[2019-12-26] MEDS ORDERED: ONDANSETRON 4 MG/2 ML VIAL IV PRN (21:44)
[2019-12-26] MEDS ORDERED: ACETAMINOPHEN 325 MG TABLET PO PRN (21:44)
[2019-12-26] MEDS: HEPARIN 5,000 UNIT/1 ML VIAL SUBCUT SCH (23:00)
[2019-12-27] MEDS: HEPARIN 5,000 UNIT/1 ML VIAL SUBCUT SCH ×3 (01:00→16:48)
[2019-12-27] MEDS: INSULIN REGULAR 100 UNIT/ML SUBCUT SCH ×5 (01:00→20:53)
[2019-12-27 04:05] LABS: Basophils % 0.2 % (0.0-0.8); Hemoglobin 10.5 GM/DL (14.0-18.0); Immature Granulocytes % 0.5 %; Immature Granulocytes Absolute 0.08 #; Lymphocytes # 0.6 10*3/uL (1.4-4.0); Lymphocytes % 3.5 % (21.2-54.2); Mean Corpuscular HGB Conc 31.8 GM/DL (32-36); Mean Corpuscular Volume 94.3 FL (87-102); Mean Platelet Volume 9.9 FL (9.6-12.0); Monocytes % 0.7 % (1.7-12.7); Neutrophils % 95.1 % (38.7-73.9); Platelet Count 287 T/CUMM (130-400); Red Cell Distribution Width 16.1 % (9.3-17.3); White Blood Count 15.5 T/CUMM (4-12)
[2019-12-27 04:35] LABS: Albumin 2.5 G/DL (3.4-5.0); Bilirubin,Total 0.9 MG/DL (0.2-1.0); Calcium 8.5 MG/DL (8.5-10.1); Ferritin 1682.3 ng/ml (26-388); Osmolality,Calculated 283.9 MOS/KG (273-304)
[2019-12-27 05:54] LABS: Band Neutrophils 1 % (0-10); Lymphocytes 2 % (20-55); Segmented Neutrophils 96 % (50-85); Total Cells Counted 100
[2019-12-27 05:55] LABS: Hypochromasia 1+; Microcytosis 1+; Platelet Estimate Normal
[2019-12-27] MEDS ORDERED: PANTOPRAZOLE 40 MG TABLET PO SCH (09:00)
[2019-12-27] MEDS: carvediloL 12.5 MG TABLET PO SCH (17:36)
[2019-12-27] MEDS: LATANOPROST 0.005% OPH SOLN 2.5 ML BOTTLE RIGHT EYE SCH (20:52)
[2019-12-27] MEDS: BRIMONIDINE 0.2% OPH SOLN 5 ML BOTTLE RIGHT EYE SCH (20:53)
[2019-12-27] MEDS: TIMOLOL MALEATE RIGHT EYE SCH (21:10)
[2019-12-28] MEDS: HEPARIN 5,000 UNIT/1 ML VIAL SUBCUT SCH ×3 (00:01→16:11)
[2019-12-28] MEDS: INSULIN REGULAR 100 UNIT/ML SUBCUT SCH ×6 (01:16→21:51)
[2019-12-28 04:12] LABS: Basophils % 0.1 % (0.0-0.8); Hematocrit 30.6 VOL% (42.0-52.0); Immature Granulocytes % 0.4 %; Immature Granulocytes Absolute 0.04 #; Lymphocytes # 0.7 10*3/uL (1.4-4.0); Lymphocytes % 6.3 % (21.2-54.2); Mean Corpuscular HGB Conc 32.7 GM/DL (32-36); Mean Corpuscular Volume 92.7 FL (87-102); Mean Platelet Volume 10.4 FL (9.6-12.0); Monocytes % 7.8 % (1.7-12.7); Neutrophils % 85.4 % (38.7-73.9); Platelet Count 296 T/CUMM (130-400); White Blood Count 10.3 T/CUMM (4-12)
[2019-12-28 04:28] LABS: Calcium 8.1 MG/DL (8.5-10.1); Osmolality,Calculated 307.2 MOS/KG (273-304)
[2019-12-28] MEDS: carvediloL 12.5 MG TABLET PO SCH ×2 (07:42→16:11)
[2019-12-28] MEDS: BRIMONIDINE 0.2% OPH SOLN 5 ML BOTTLE RIGHT EYE SCH ×2 (08:33→21:51)
[2019-12-28] MEDS: TIMOLOL MALEATE RIGHT EYE SCH ×2 (08:34→21:52)
[2019-12-28] MEDS: PIPERACILLIN/TAZOBACTAM 3,375 MG in SODIUM CHLORIDE 0.9% 100 ML IV SCH (16:10)
[2019-12-28] MEDS ORDERED: INSULIN GLARGINE 100 UNIT/ML SUBCUT SCH (21:00)
[2019-12-28] MEDS: LATANOPROST 0.005% OPH SOLN 2.5 ML BOTTLE RIGHT EYE SCH (21:53)
[2019-12-29] MEDS: HEPARIN 5,000 UNIT/1 ML VIAL SUBCUT SCH ×4 (00:25→16:03)
[2019-12-29 05:30] LABS: Basophils % 0.1 % (0.0-0.8); Eosinophils % 0.2 % (0.00-10.9); Hematocrit 35.6 VOL% (42.0-52.0); Hemoglobin 11.1 GM/DL (14.0-18.0); Immature Granulocytes % 0.5 %; Immature Granulocytes Absolute 0.12 #; Lymphocytes # 1.9 10*3/uL (1.4-4.0); Lymphocytes % 8.4 % (21.2-54.2); Mean Corpuscular HGB Conc 31.2 GM/DL (32-36); Mean Corpuscular Volume 97.5 FL (87-102); Mean Platelet Volume 10.4 FL (9.6-12.0); Monocytes % 4.2 % (1.7-12.7); Neutrophils % 86.6 % (38.7-73.9); Platelet Count 279 T/CUMM (130-400); Red Blood Count 3.65 MC/CUMM (3.8-5.5); Red Cell Distribution Width 16.4 % (9.3-17.3); White Blood Count 21.9 T/CUMM (4-12)
[2019-12-29 05:51] LABS: Calcium 7.7 MG/DL (8.5-10.1); Ferritin 1464.2 ng/ml (26-388); Osmolality,Calculated 284.9 MOS/KG (273-304)
[2019-12-29 06:17] LABS: Anisocytosis 1+; Band Neutrophils 1 % (0-10); Hypochromasia 1+; Lymphocytes 5 % (20-55); Macrocytosis 1+; Platelet Estimate Normal; Segmented Neutrophils 92 % (50-85); Total Cells Counted 100
[2019-12-29] MEDS: carvediloL 12.5 MG TABLET PO SCH ×2 (07:51→16:02)
[2019-12-29] MEDS: INSULIN REGULAR 100 UNIT/ML SUBCUT SCH ×4 (07:51→21:46)
[2019-12-29] MEDS: PIPERACILLIN/TAZOBACTAM 3,375 MG in SODIUM CHLORIDE 0.9% 100 ML IV SCH ×3 (07:52→21:47)
[2019-12-29] MEDS: BRIMONIDINE 0.2% OPH SOLN 5 ML BOTTLE RIGHT EYE SCH ×2 (08:06→21:46)
[2019-12-29] MEDS: TIMOLOL MALEATE RIGHT EYE SCH ×2 (08:07→21:47)
[2019-12-29] MEDS: INSULIN GLARGINE 100 UNIT/ML SUBCUT SCH (21:46)
[2019-12-29] MEDS: LATANOPROST 0.005% OPH SOLN 2.5 ML BOTTLE RIGHT EYE SCH (21:47)
[2019-12-30] MEDS: HEPARIN 5,000 UNIT/1 ML VIAL SUBCUT SCH ×3 (00:54→16:22)
[2019-12-30 05:53] LABS: Basophils % 0.4 % (0.0-0.8); Eosinophils # 0.2 10*3/uL (0.0-0.87); Eosinophils % 1.9 % (0.00-10.9); Hematocrit 30.6 VOL% (42.0-52.0); Hemoglobin 9.6 GM/DL (14.0-18.0); Immature Granulocytes % 0.7 %; Immature Granulocytes Absolute 0.07 #; Lymphocytes # 2.1 10*3/uL (1.4-4.0); Lymphocytes % 20.8 % (21.2-54.2); Mean Corpuscular HGB Conc 31.4 GM/DL (32-36); Mean Corpuscular Volume 95.3 FL (87-102); Mean Platelet Volume 10.9 FL (9.6-12.0); Neutrophils % 66.2 % (38.7-73.9); Platelet Count 248 T/CUMM (130-400); Red Blood Count 3.21 MC/CUMM (3.8-5.5); Red Cell Distribution Width 16.2 % (9.3-17.3); White Blood Count 9.9 T/CUMM (4-12)
[2019-12-30 06:07] LABS: Calcium 7.5 MG/DL (8.5-10.1); Ferritin 1268.7 ng/ml (26-388); Osmolality,Calculated 292.8 MOS/KG (273-304)
[2019-12-30] MEDS: TIMOLOL MALEATE RIGHT EYE SCH ×2 (09:30→21:41)
[2019-12-30] MEDS: INSULIN REGULAR 100 UNIT/ML SUBCUT SCH ×4 (09:30→21:38)
[2019-12-30] MEDS: carvediloL 12.5 MG TABLET PO SCH ×2 (09:30→16:22)
[2019-12-30] MEDS: BRIMONIDINE 0.2% OPH SOLN 5 ML BOTTLE RIGHT EYE SCH ×2 (09:31→21:38)
[2019-12-30] MEDS: PIPERACILLIN/TAZOBACTAM 3,375 MG in SODIUM CHLORIDE 0.9% 100 ML IV SCH ×2 (09:31→21:39)
[2019-12-30] MEDS: LATANOPROST 0.005% OPH SOLN 2.5 ML BOTTLE RIGHT EYE SCH (21:38)
[2019-12-30] MEDS: INSULIN GLARGINE 100 UNIT/ML SUBCUT SCH (21:38)
[2019-12-31] MEDS: HEPARIN 5,000 UNIT/1 ML VIAL SUBCUT SCH ×3 (00:07→18:20)
[2019-12-31 03:49] LABS: Basophils # 0.1 10*3/uL (0.0-0.2); Basophils % 0.6 % (0.0-0.8); Eosinophils # 0.5 10*3/uL (0.0-0.87); Eosinophils % 4.5 % (0.00-10.9); Hemoglobin 9.4 GM/DL (14.0-18.0); Immature Granulocytes % 0.9 %; Lymphocytes # 2.1 10*3/uL (1.4-4.0); Lymphocytes % 19.4 % (21.2-54.2); Mean Corpuscular HGB Conc 31.3 GM/DL (32-36); Mean Corpuscular Volume 94.3 FL (87-102); Mean Platelet Volume 10.9 FL (9.6-12.0); Monocytes % 9.5 % (1.7-12.7); Neutrophils % 65.1 % (38.7-73.9); Platelet Count 255 T/CUMM (130-400); Red Blood Count 3.18 MC/CUMM (3.8-5.5); Red Cell Distribution Width 16.6 % (9.3-17.3); White Blood Count 10.6 T/CUMM (4-12)
[2019-12-31 04:01] LABS: Calcium 7.8 MG/DL (8.5-10.1); Ferritin 1089.9 ng/ml (26-388); Osmolality,Calculated 290.9 MOS/KG (273-304)
[2019-12-31 07:28] LABS: SARS-CoV-2 Total Ab Interp Reactive
[2019-12-31] MEDS: INSULIN REGULAR 100 UNIT/ML SUBCUT SCH ×4 (08:06→20:05)
[2019-12-31] MEDS: carvediloL 12.5 MG TABLET PO SCH ×2 (08:45→18:20)
[2019-12-31] MEDS: PIPERACILLIN/TAZOBACTAM 3,375 MG in SODIUM CHLORIDE 0.9% 100 ML IV SCH ×2 (08:45→21:42)
[2019-12-31] MEDS: BRIMONIDINE 0.2% OPH SOLN 5 ML BOTTLE RIGHT EYE SCH ×2 (08:56→21:47)
[2019-12-31] MEDS: TIMOLOL MALEATE RIGHT EYE SCH ×2 (10:11→21:47)
[2019-12-31] MEDS: INSULIN GLARGINE 100 UNIT/ML SUBCUT SCH (21:42)
[2019-12-31] MEDS: LATANOPROST 0.005% OPH SOLN 2.5 ML BOTTLE RIGHT EYE SCH (21:44)
[2020-01-01] MEDS: HEPARIN 5,000 UNIT/1 ML VIAL SUBCUT SCH ×3 (00:23→18:16)
[2020-01-01 05:39] LABS: Basophils # 0.1 10*3/uL (0.0-0.2); Basophils % 0.2 % (0.0-0.8); Eosinophils # 0.4 10*3/uL (0.0-0.87); Eosinophils % 1.5 % (0.00-10.9); Immature Granulocytes % 0.8 %; Immature Granulocytes Absolute 0.22 #; Lymphocytes # 1.3 10*3/uL (1.4-4.0); Mean Corpuscular HGB Conc 32.1 GM/DL (32-36); Mean Platelet Volume 10.4 FL (9.6-12.0); Monocytes % 3.6 % (1.7-12.7); Neutrophils % 88.9 % (38.7-73.9); Platelet Count 220 T/CUMM (130-400); Red Blood Count 3.01 MC/CUMM (3.8-5.5); Red Cell Distribution Width 16.6 % (9.3-17.3); White Blood Count 26.6 T/CUMM (4-12)
[2020-01-01 06:07] LABS: Hypochromasia 1+; Lymphocytes 4 % (20-55); Platelet Estimate Adequate; Segmented Neutrophils 93 % (50-85); Total Cells Counted 100
[2020-01-01 06:08] LABS: Ferritin 903.6 ng/ml (26-388); Osmolality,Calculated 282.7 MOS/KG (273-304)
[2020-01-01] MEDS: INSULIN REGULAR 100 UNIT/ML SUBCUT SCH ×3 (07:33→16:30)
[2020-01-01] MEDS: carvediloL 12.5 MG TABLET PO SCH ×2 (08:15→18:16)
[2020-01-01] MEDS: PIPERACILLIN/TAZOBACTAM 3,375 MG in SODIUM CHLORIDE 0.9% 100 ML IV SCH (08:17)
[2020-01-01] MEDS: BRIMONIDINE 0.2% OPH SOLN 5 ML BOTTLE RIGHT EYE SCH (08:35)
[2020-01-01] MEDS: TIMOLOL MALEATE RIGHT EYE SCH (08:48)
[2020-01-01] MEDS ORDERED: LIDOCAINE 1%/EPI INJ 20 ML VIAL ONE (11:36)
[2020-01-01] MEDS ORDERED: BUPIVACAINE MPF 0.25% 30 ML VIAL ONE (11:36)
[2020-01-01] MEDS ORDERED: propofoL 200 MG/20 ML VIAL IV ONE (13:00)
[2020-01-01] MEDS ORDERED: LIDOCAINE 2% 5 ML VIAL ONE (13:01)
[2020-01-01] MEDS ORDERED: SODIUM CHLORIDE 0.9% 250 ML IV ONE (13:01)
[2020-01-01] MEDS ORDERED: DEXMEDETOMIDINE 200 MCG/2 ML VIAL ONE (13:01)
[2020-01-01] MEDS ORDERED: fentaNYL 100 MCG/2 ML VIAL ONE (13:01)
[2020-01-01] MEDS ORDERED: MIDAZOLAM 2 MG/2 ML VIAL ONE (13:01)
[2020-01-01 17:38] VITALS: BP 124/78
[2020-01-02] MEDS ORDERED: CIPROFLOXACIN 500 MG TABLET PO SCH (09:00)
== END 2020-01-01 17:00 | disposition home or self-care (01) | DRG 640 ==
LOC: EDUNIT# → EDBD → N.ED 18:17 → N.EDINP 21:44 → N.2E 23:24
PROVIDERS: ADMIT Hospitalist; ATTEND Hospitalist

== ENCOUNTER 2020-03-17 15:06 | Inpatient (IN) ==
[2020-03-17] MEDS ORDERED: DEXTROSE 50% 25 GM/50 ML VIAL IV PRN (16:04)
[2020-03-17] MEDS ORDERED: ONDANSETRON 4 MG/2 ML VIAL IV PRN (16:04)
[2020-03-17] MEDS ORDERED: GLUCAGON 1 MG VIAL IM PRN (16:04)
[2020-03-17] MEDS ORDERED: HYDROmorphone 2 MG/1 ML VIAL IV PRN (16:04)
[2020-03-17] MEDS ORDERED: BISACODYL 5 MG TABLET PO PRN (16:04)
[2020-03-17] MEDS ORDERED: ACETAMINOPHEN 325 MG TABLET PO PRN (16:04)
[2020-03-17] MEDS ORDERED: PIPERACILLIN/TAZOBACTAM 3,375 MG in SODIUM CHLORIDE 0.9% 100 ML IV SCH (16:30)
[2020-03-17] MEDS ORDERED: VANCOMYCIN INJ 1,000 MG in SODIUM CHLORIDE 0.9% 250 ML IV PRN (16:30)
[2020-03-17] MEDS: INSULIN LISPRO 100 UNIT/ML SUBCUT SCH (18:22)
[2020-03-17] MEDS ORDERED: VANCOMYCIN INJ 2,500 MG in SODIUM CHLORIDE 0.9% 500 ML IV ONE (22:00)
[2020-03-17 22:26] LABS: Calcium 8.2 MG/DL (8.5-10.1); Osmolality,Calculated 278.5 MOS/KG (273-304)
[2020-03-18] MEDS: PIPERACILLIN/TAZOBACTAM 3,375 MG in SODIUM CHLORIDE 0.9% 100 ML IV SCH ×2 (06:10→19:31)
[2020-03-18 06:26] LABS: Basophils % 0.2 % (0.0-0.8); Eosinophils # 0.4 10*3/uL (0.0-0.87); Hematocrit 23.7 VOL% (42.0-52.0); Immature Granulocytes % 0.6 %; Immature Granulocytes Absolute 0.08 #; Lymphocytes % 7.9 % (21.2-54.2); Mean Corpuscular HGB Conc 33.8 GM/DL (32-36); Mean Corpuscular Volume 91.5 FL (87-102); Monocytes % 7.1 % (1.7-12.7); Neutrophils % 81.2 % (38.7-73.9); Platelet Count 257 T/CUMM (130-400); Red Blood Count 2.59 MC/CUMM (3.8-5.5); Red Cell Distribution Width 14.9 % (9.3-17.3); White Blood Count 13.2 T/CUMM (4-12)
[2020-03-18 06:43] LABS: Albumin 2.3 G/DL (3.4-5.0); Bilirubin,Total 1.8 MG/DL (0.2-1.0); Calcium 8.7 MG/DL (8.5-10.1); Osmolality,Calculated 281.4 MOS/KG (273-304); Total Protein 7.6 G/DL (6.4-8.3)
[2020-03-18] MEDS ORDERED: LIDOCAINE 1% 20 ML VIAL ONE (06:46)
[2020-03-18] MEDS ORDERED: BUPIVACAINE MPF 0.25% 30 ML VIAL ONE (07:24)
[2020-03-18] MEDS ORDERED: SODIUM CHLORIDE 0.9% 250 ML IV SCH (07:30)
[2020-03-18] MEDS ORDERED: LIDOCAINE 2% 5 ML VIAL ONE (09:16)
[2020-03-18] MEDS ORDERED: KETAMINE 500 MG/10 ML VIAL ONE (09:16)
[2020-03-18] MEDS ORDERED: propofoL 200 MG/20 ML VIAL IV ONE (09:16)
[2020-03-18] MEDS ORDERED: fentaNYL 100 MCG/2 ML VIAL ONE (09:17)
[2020-03-18] MEDS ORDERED: MIDAZOLAM 2 MG/2 ML VIAL ONE (09:17)
[2020-03-18] MEDS ORDERED: SODIUM CHLORIDE 0.9% 100 ML IV ONE (09:17)
[2020-03-18] MEDS: carvediloL 12.5 MG TABLET PO SCH ×2 (10:55→17:42)
[2020-03-18] MEDS: MULTIVITAMIN (CENTRUM) TABLET PO SCH (10:55)
[2020-03-18] MEDS: INSULIN LISPRO 100 UNIT/ML SUBCUT SCH ×3 (10:55→17:42)
[2020-03-18] MEDS: PANTOPRAZOLE 40 MG TABLET PO SCH (10:56)
[2020-03-18] MEDS ORDERED: DEXTROSE 50% 25 GM/50 ML VIAL IV PRN (11:42)
[2020-03-18] MEDS ORDERED: GLUCAGON 1 MG VIAL IM PRN (11:42)
[2020-03-18] MEDS ORDERED: EPOETIN ALFA-EPBX 10,000 UNIT/ML VIAL IV PRN (14:29)
[2020-03-19] MEDS: PIPERACILLIN/TAZOBACTAM 3,375 MG in SODIUM CHLORIDE 0.9% 100 ML IV SCH (05:37)
[2020-03-19 06:57] LABS: Basophils % 0.2 % (0.0-0.8); Eosinophils # 0.3 10*3/uL (0.0-0.87); Eosinophils % 4.2 % (0.00-10.9); Hematocrit 21.5 VOL% (42.0-52.0); Hemoglobin 7.1 GM/DL (14.0-18.0); Immature Granulocytes Absolute 0.08 #; Lymphocytes # 0.8 10*3/uL (1.4-4.0); Lymphocytes % 10.1 % (21.2-54.2); Mean Corpuscular Volume 92.3 FL (87-102); Mean Platelet Volume 10.1 FL (9.6-12.0); Monocytes % 9.9 % (1.7-12.7); Neutrophils % 74.6 % (38.7-73.9); Platelet Count 246 T/CUMM (130-400); Red Blood Count 2.33 MC/CUMM (3.8-5.5); White Blood Count 8.2 T/CUMM (4-12)
[2020-03-19] MEDS ORDERED: SODIUM CHLORIDE 0.9% 1,000 ML IV PRN (07:02)
[2020-03-19 07:17] LABS: Calcium 8.2 MG/DL (8.5-10.1); Osmolality,Calculated 286.2 MOS/KG (273-304)
[2020-03-19] MEDS: INSULIN LISPRO 100 UNIT/ML SUBCUT SCH ×3 (08:01→18:58)
[2020-03-19] MEDS: PANTOPRAZOLE 40 MG TABLET PO SCH (08:02)
[2020-03-19] MEDS: MULTIVITAMIN (CENTRUM) TABLET PO SCH (08:02)
[2020-03-19] MEDS: carvediloL 12.5 MG TABLET PO SCH ×2 (08:02→19:24)
[2020-03-19] MEDS: SODIUM HYPOCHLORITE 0.25% IRRIG 473 ML BOTTLE TOP SCH (14:07)
[2020-03-19] MEDS ORDERED: VANCOMYCIN INJ 1,000 MG in SODIUM CHLORIDE 0.9% 250 ML IV ONE (17:00)
[2020-03-19 22:30] LABS: Hematocrit 23.5 VOL% (42.0-52.0)
[2020-03-20] MEDS: PIPERACILLIN/TAZOBACTAM 3,375 MG in SODIUM CHLORIDE 0.9% 100 ML IV SCH (01:52)
[2020-03-20 05:49] LABS: Basophils % 0.2 % (0.0-0.8); Eosinophils # 0.4 10*3/uL (0.0-0.87); Eosinophils % 5.1 % (0.00-10.9); Hematocrit 26.4 VOL% (42.0-52.0); Hemoglobin 8.9 GM/DL (14.0-18.0); Immature Granulocytes % 0.7 %; Immature Granulocytes Absolute 0.06 #; Lymphocytes % 11.7 % (21.2-54.2); Mean Corpuscular HGB Conc 33.7 GM/DL (32-36); Mean Corpuscular Volume 90.7 FL (87-102); Mean Platelet Volume 9.9 FL (9.6-12.0); Monocytes % 9.1 % (1.7-12.7); Neutrophils % 73.2 % (38.7-73.9); Platelet Count 262 T/CUMM (130-400); Red Blood Count 2.91 MC/CUMM (3.8-5.5); Red Cell Distribution Width 15.2 % (9.3-17.3); White Blood Count 8.7 T/CUMM (4-12)
[2020-03-20 06:14] LABS: Calcium 8.4 MG/DL (8.5-10.1); Osmolality,Calculated 272.5 MOS/KG (273-304)
[2020-03-20] MEDS: INSULIN LISPRO 100 UNIT/ML SUBCUT SCH ×2 (08:49→13:07)
[2020-03-20] MEDS: carvediloL 12.5 MG TABLET PO SCH (08:49)
[2020-03-20] MEDS: MULTIVITAMIN (CENTRUM) TABLET PO SCH (08:50)
[2020-03-20] MEDS: PANTOPRAZOLE 40 MG TABLET PO SCH (08:50)
[2020-03-20 11:50] VITALS: BP 139/80
[2020-03-20] MEDS: SODIUM HYPOCHLORITE 0.25% IRRIG 473 ML BOTTLE TOP SCH (13:07)
== END 2020-03-20 12:41 | disposition home health service (06) | DRG 623 ==
LOC: EDBD → EDUNIT# → N.ED 15:06 → N.EDINP 16:19 → N.3E 17:56
PROVIDERS: ADMIT Family Medicine; ATTEND Family Medicine

== ENCOUNTER 2020-04-01 20:39 | Inpatient (IN) ==
[2020-04-01 21:15] LABS: Basophils # 0.1 10*3/uL (0.0-0.2); Basophils % 0.6 % (0.0-0.8); Eosinophils # 0.5 10*3/uL (0.0-0.87); Hematocrit 26.6 VOL% (42.0-52.0); Hemoglobin 8.8 GM/DL (14.0-18.0); Immature Granulocytes % 0.5 %; Immature Granulocytes Absolute 0.05 #; Lymphocytes # 1.2 10*3/uL (1.4-4.0); Lymphocytes % 11.7 % (21.2-54.2); Mean Corpuscular HGB Conc 33.1 GM/DL (32-36); Mean Corpuscular Volume 94.7 FL (87-102); Mean Platelet Volume 9.5 FL (9.6-12.0); Monocytes % 5.8 % (1.7-12.7); Neutrophils % 76.4 % (38.7-73.9); Platelet Count 365 T/CUMM (130-400); Red Blood Count 2.81 MC/CUMM (3.8-5.5); Red Cell Distribution Width 15.9 % (9.3-17.3); White Blood Count 10.6 T/CUMM (4-12)
[2020-04-01 21:37] LABS: Albumin 2.7 G/DL (3.4-5.0); Bilirubin,Total 0.6 MG/DL (0.2-1.0); Calcium 8.8 MG/DL (8.5-10.1); Osmolality,Calculated 279.1 MOS/KG (273-304); Total Protein 8.3 G/DL (6.4-8.3)
[2020-04-01] MEDS ORDERED: NITROGLYCERIN DRIP 50 MG/250 ML BOTTLE IV SCH (22:00)
[2020-04-01] MEDS ORDERED: ONDANSETRON 4 MG/2 ML VIAL IV PRN (23:29)
[2020-04-01] MEDS ORDERED: GLUCAGON 1 MG VIAL IM PRN (23:29)
[2020-04-01] MEDS ORDERED: DEXTROSE 50% 25 GM/50 ML VIAL IV PRN (23:29)
[2020-04-01] MEDS ORDERED: LEVOFLOXACIN INJ 750 MG in PREMIX 1 EACH IV ONE (23:30)
[2020-04-02] MEDS ORDERED: DEXTROSE 50% 25 GM/50 ML SYRINGE IV PRN (01:00)
[2020-04-02] MEDS: ALBUTEROL/IPRATROPIUM 3 ML NEB RESP TX SCH ×4 (01:00→19:40)
[2020-04-02] MEDS: niCARdipine INJ 25 MG in SODIUM CHLORIDE 0.9% 240 ML IV PRN ×2 (02:03→07:40)
[2020-04-02] MEDS ORDERED: INFLUENZA VIRUS VACCINE 0.5 ML SYRINGE IM ONE (02:23)
[2020-04-02] MEDS ORDERED: PNEUMOCOCCAL VACCINE (13 VALENT) 0.5 ML SYRINGE IM ONE (02:23)
[2020-04-02 02:34] LABS: Bilirubin,Urine Negative (Negative); Blood, Urine Negative (Negative); Glucose,Urine (UA) >=500 mg/dL (Negative); Ketones,Urine Negative (Negative); Nitrite,Urine Negative (Negative); Protein,Urine >=500 MG/DL; RBC,Urine 8 /HPF (0-4); Squamous Epithelial Cell,Urine Occasional /HPF (0-10); Urine Appearance CLEAR (Clear); Urine Color Yellow (Yellow); Urine Specific Gravity 1.012 (1.001-1.035); Urine Urobilinogen < 2.0 EU/DL (0.2-1.0); WBC,Urine 1 /HPF (0-6)
[2020-04-02 03:57] LABS: Basophils # 0.1 10*3/uL (0.0-0.2); Basophils % 0.7 % (0.0-0.8); Eosinophils # 0.5 10*3/uL (0.0-0.87); Eosinophils % 5.1 % (0.00-10.9); Hematocrit 26.3 VOL% (42.0-52.0); Hemoglobin 8.5 GM/DL (14.0-18.0); Immature Granulocytes % 0.7 %; Immature Granulocytes Absolute 0.07 #; Lymphocytes # 1.3 10*3/uL (1.4-4.0); Mean Corpuscular HGB Conc 32.3 GM/DL (32-36); Mean Corpuscular Volume 93.6 FL (87-102); Mean Platelet Volume 9.6 FL (9.6-12.0); Monocytes % 6.2 % (1.7-12.7); Neutrophils % 74.3 % (38.7-73.9); Platelet Count 342 T/CUMM (130-400); Red Blood Count 2.81 MC/CUMM (3.8-5.5); Red Cell Distribution Width 15.5 % (9.3-17.3); White Blood Count 10.3 T/CUMM (4-12)
[2020-04-02 04:21] LABS: Calcium 8.8 MG/DL (8.5-10.1); Risk Ratio 2.53; Thyroid Stimulating Hormone 4.9 uIU/ml (0.358-3.74); VLDL CHOLESTEROL 14.2 MG/DL
[2020-04-02] MEDS: INSULIN LISPRO 100 UNIT/ML SUBCUT SCH ×4 (07:56→22:31)
[2020-04-02] MEDS ORDERED: ENOXAPARIN 30 MG/0.3 ML SYRINGE SUBCUT SCH (08:00)
[2020-04-02] MEDS: carvediloL 12.5 MG TABLET PO SCH ×2 (09:24→18:11)
[2020-04-02] MEDS: MULTIVITAMIN (CENTRUM) TABLET PO SCH (09:24)
[2020-04-02] MEDS: PANTOPRAZOLE 40 MG TABLET PO SCH (09:25)
[2020-04-02] MEDS ORDERED: FUROSEMIDE 40 MG TABLET PO ONE (10:30)
[2020-04-02] MEDS ORDERED: metOLazone 5 MG TABLET PO ONE (10:30)
[2020-04-02] MEDS: SODIUM HYPOCHLORITE 0.25% IRRIG 473 ML BOTTLE TOP SCH (11:35)
[2020-04-02] MEDS: amLODIPine 5 MG TABLET PO SCH (14:27)
[2020-04-02] MEDS: HEPARIN 5,000 UNIT/1 ML VIAL SUBCUT SCH (21:43)
[2020-04-03] MEDS: ALBUTEROL/IPRATROPIUM 3 ML NEB RESP TX SCH ×4 (01:39→19:06)
[2020-04-03] MEDS: HEPARIN 5,000 UNIT/1 ML VIAL SUBCUT SCH ×3 (04:48→21:42)
[2020-04-03 06:00] LABS: Calcium 8.8 MG/DL (8.5-10.1); Osmolality,Calculated 277.1 MOS/KG (273-304)
[2020-04-03] MEDS: INSULIN LISPRO 100 UNIT/ML SUBCUT SCH ×4 (08:51→22:11)
[2020-04-03] MEDS: PANTOPRAZOLE 40 MG TABLET PO SCH (09:45)
[2020-04-03] MEDS: carvediloL 12.5 MG TABLET PO SCH ×2 (09:45→16:27)
[2020-04-03] MEDS: amLODIPine 5 MG TABLET PO SCH (09:45)
[2020-04-03] MEDS: SODIUM HYPOCHLORITE 0.25% IRRIG 473 ML BOTTLE TOP SCH (09:45)
[2020-04-03] MEDS: MULTIVITAMIN (CENTRUM) TABLET PO SCH (09:45)
[2020-04-04] MEDS ORDERED: LEVOFLOXACIN INJ 500 MG in PREMIX 1 EACH IV SCH
[2020-04-04] MEDS: ALBUTEROL/IPRATROPIUM 3 ML NEB RESP TX SCH ×2 (02:09→07:37)
[2020-04-04] MEDS: HEPARIN 5,000 UNIT/1 ML VIAL SUBCUT SCH ×2 (05:01→15:52)
[2020-04-04] MEDS: INSULIN LISPRO 100 UNIT/ML SUBCUT SCH ×3 (08:03→15:55)
[2020-04-04] MEDS: PANTOPRAZOLE 40 MG TABLET PO SCH (09:04)
[2020-04-04] MEDS: carvediloL 12.5 MG TABLET PO SCH (09:04)
[2020-04-04] MEDS: SODIUM HYPOCHLORITE 0.25% IRRIG 473 ML BOTTLE TOP SCH (09:05)
[2020-04-04] MEDS: MULTIVITAMIN (CENTRUM) TABLET PO SCH (09:05)
[2020-04-04] MEDS: amLODIPine 5 MG TABLET PO SCH (09:05)
[2020-04-04 16:11] VITALS: BP 147/94
== END 2020-04-04 16:03 | disposition home health service (06) | DRG 291 ==
LOC: EDBD → EDUNIT# → N.ED 20:39 → SUATTDRO 23:29 → N.EDINP 23:29 → N.ICU 04-02 01:35 → N.TELES 04-02 17:25
PROVIDERS: ADMIT Internal Medicine; ATTEND Family Medicine

== ENCOUNTER 2020-06-30 19:43 | Inpatient (IN) ==
[2020-06-30] MEDS ORDERED: MORPHINE 4 MG/1 ML VIAL IV ONE (20:49)
[2020-06-30] MEDS ORDERED: PIPERACILLIN/TAZOBACTAM 3,375 MG in SODIUM CHLORIDE 0.9% 100 ML IV STA (20:56)
[2020-06-30] MEDS ORDERED: VANCOMYCIN INJ 1,000 MG in SODIUM CHLORIDE 0.9% 250 ML IV PRN (23:06)
[2020-06-30] MEDS ORDERED: ONDANSETRON 4 MG/2 ML VIAL IV PRN (23:34)
[2020-06-30] MEDS ORDERED: DEXTROSE 50% 25 GM/50 ML VIAL IV PRN (23:34)
[2020-06-30] MEDS ORDERED: DOCUSATE SODIUM 100 MG CAPSULE PO PRN (23:34)
[2020-06-30] MEDS ORDERED: hydrALAZINE 20 MG/1 ML VIAL IV PRN (23:34)
[2020-06-30] MEDS ORDERED: GLUCAGON 1 MG VIAL IM PRN (23:34)
[2020-06-30] MEDS ORDERED: ACETAMINOPHEN 325 MG TABLET PO PRN (23:34)
[2020-07-01] MEDS ORDERED: VANCOMYCIN INJ 1,000 MG in SODIUM CHLORIDE 0.9% 250 ML IV ONE
[2020-07-01] MEDS ORDERED: VANCOMYCIN INJ 2,000 MG in SODIUM CHLORIDE 0.9% 500 ML IV ONE
[2020-07-01] MEDS ORDERED: VANCOMYCIN INJ 2,500 MG in SODIUM CHLORIDE 0.9% 500 ML IV ONE
[2020-07-01 06:31] LABS: Basophils # 0.1 10*3/uL (0.0-0.2); Basophils % 0.2 % (0.0-0.8); Eosinophils # 0.4 10*3/uL (0.0-0.87); Eosinophils % 1.7 % (0.00-10.9); Hematocrit 24.3 VOL% (42.0-52.0); Hemoglobin 8.1 GM/DL (14.0-18.0); Immature Granulocytes % 0.8 %; Lymphocytes # 0.9 10*3/uL (1.4-4.0); Lymphocytes % 3.6 % (21.2-54.2); Mean Corpuscular HGB Conc 33.3 GM/DL (32-36); Mean Platelet Volume 10.2 FL (9.6-12.0); Monocytes % 6.7 % (1.7-12.7); Platelet Count 459 T/CUMM (130-400); Red Cell Distribution Width 17.2 % (9.3-17.3); White Blood Count 24.2 T/CUMM (4-12)
[2020-07-01 06:50] LABS: Albumin 1.6 G/DL (3.4-5.0); Bilirubin,Total 1.3 MG/DL (0.2-1.0); Osmolality,Calculated 287.1 MOS/KG (273-304); Potassium 3.4 MMOL/L (3.5-5.1); Total Protein 7.5 G/DL (6.4-8.3)
[2020-07-01 06:52] LABS: Band Neutrophils 1 % (0-10); Hypochromasia 2+; Lymphocytes 2 % (20-55); Microcytosis 1+; Segmented Neutrophils 93 % (50-85); Target Cells Slight; Total Cells Counted 100
[2020-07-01] MEDS: INSULIN LISPRO 100 UNIT/ML SUBCUT SCH ×4 (07:43→23:22)
[2020-07-01] MEDS ORDERED: DEXTROSE 50% 25 GM/50 ML VIAL IV PRN (10:17)
[2020-07-01] MEDS ORDERED: GLUCAGON 1 MG VIAL IM PRN (10:17)
[2020-07-01] MEDS: PIPERACILLIN/TAZOBACTAM 3,375 MG in SODIUM CHLORIDE 0.9% 100 ML IV SCH ×2 (10:22→23:19)
[2020-07-01] MEDS: carvediloL 12.5 MG TABLET PO SCH ×2 (10:31→17:00)
[2020-07-01] MEDS ORDERED: CLINDAMYCIN INJ 900 MG in PREMIX 1 EACH IV ONE (10:43)
[2020-07-01] MEDS ORDERED: EPOETIN ALFA-EPBX 10,000 UNIT/ML VIAL IV PRN (12:37)
[2020-07-01] MEDS ORDERED: TUBERCULIN SKIN TEST 0.1 ML SYRINGE INTRADERM ONE (19:48)
[2020-07-02 05:59] LABS: Basophils # 0.1 10*3/uL (0.0-0.2); Basophils % 0.3 % (0.0-0.8); Eosinophils # 0.4 10*3/uL (0.0-0.87); Eosinophils % 1.7 % (0.00-10.9); Hematocrit 23.5 VOL% (42.0-52.0); Hemoglobin 7.8 GM/DL (14.0-18.0); Immature Granulocytes % 0.8 %; Lymphocytes # 0.8 10*3/uL (1.4-4.0); Lymphocytes % 3.4 % (21.2-54.2); Mean Corpuscular HGB Conc 33.2 GM/DL (32-36); Mean Corpuscular Volume 90.4 FL (87-102); Mean Platelet Volume 9.8 FL (9.6-12.0); Monocytes % 5.1 % (1.7-12.7); Neutrophils % 88.7 % (38.7-73.9); Platelet Count 451 T/CUMM (130-400); Red Cell Distribution Width 17.2 % (9.3-17.3); White Blood Count 23.8 T/CUMM (4-12)
[2020-07-02] MEDS ORDERED: DIAZEPAM 5 MG TABLET PO ONE (06:00)
[2020-07-02] MEDS ORDERED: CLINDAMYCIN INJ 900 MG in PREMIX 1 EACH IV ONE (06:00)
[2020-07-02] MEDS ORDERED: GABAPENTIN 400 MG CAPSULE PO ONE (06:00)
[2020-07-02] MEDS ORDERED: ALBUTEROL 2.5 MG/3 ML NEB RESP TX ONE (06:00)
[2020-07-02] MEDS ORDERED: FAMOTIDINE 20 MG TABLET PO ONE (06:00)
[2020-07-02 06:22] LABS: Eosinophils 3 % (0-10); Hypochromasia 2+; Lymphocytes 2 % (20-55); Microcytosis 1+; Ovalocytes Slight; Platelet Estimate Adequate; Segmented Neutrophils 90 % (50-85); Total Cells Counted 100
[2020-07-02 06:31] LABS: Calcium 7.6 MG/DL (8.5-10.1); Osmolality,Calculated 286.4 MOS/KG (273-304); Potassium 3.2 MMOL/L (3.5-5.1)
[2020-07-02 06:35] LABS: Albumin 1.5 G/DL (3.4-5.0); Bilirubin,Total 1.4 MG/DL (0.2-1.0); Calcium 7.7 MG/DL (8.5-10.1); Osmolality,Calculated 288.2 MOS/KG (273-304); Potassium 3.2 MMOL/L (3.5-5.1); Total Protein 7.3 G/DL (6.4-8.3)
[2020-07-02] MEDS: INSULIN LISPRO 100 UNIT/ML SUBCUT SCH ×4 (08:30→20:52)
[2020-07-02] MEDS ORDERED: MIDAZOLAM 2 MG/2 ML VIAL ONE ×2 (08:30→08:42)
[2020-07-02] MEDS ORDERED: ROPIVACAINE 0.5% 30 ML VIAL ONE (08:31)
[2020-07-02] MEDS ORDERED: fentaNYL 100 MCG/2 ML VIAL ONE ×2 (08:31→08:42)
[2020-07-02] MEDS ORDERED: LIDOCAINE 2% 5 ML VIAL ONE (08:42)
[2020-07-02] MEDS ORDERED: propofoL 200 MG/20 ML VIAL IV ONE (08:42)
[2020-07-02] MEDS ORDERED: LIDOCAINE 1% 5 ML VIAL ONE (08:55)
[2020-07-02] MEDS ORDERED: ACETAMINOPHEN 1,000 MG/100 ML VIAL IV ONE (09:41)
[2020-07-02] MEDS: carvediloL 12.5 MG TABLET PO SCH ×2 (09:45→16:17)
[2020-07-02] MEDS: PIPERACILLIN/TAZOBACTAM 3,375 MG in SODIUM CHLORIDE 0.9% 100 ML IV SCH ×2 (09:46→20:59)
[2020-07-02] MEDS ORDERED: SEVOFLURANE 1 UNIT/15 MINUTE INH ONE ×4 (09:52→11:47)
[2020-07-02] MEDS ORDERED: PHENYLEPHRINE 1 MG/10 ML SYRINGE IV ONE (09:56)
[2020-07-02] MEDS ORDERED: ALBUTEROL INHALER 18 GM INH ONE (10:07)
[2020-07-02] MEDS ORDERED: ePHEDrine 50 MG/ML VIAL ONE (10:08)
[2020-07-02] MEDS ORDERED: SUCCINYLCHOLINE 200 MG/10 ML VIAL ONE (10:12)
[2020-07-02] MEDS ORDERED: SODIUM CHLORIDE 0.9% 250 ML IV ONE (10:56)
[2020-07-02] MEDS ORDERED: HYDROmorphone 2 MG/1 ML VIAL IV PRN (11:22)
[2020-07-02] MEDS: ZINC OXIDE 16% PASTE 57 GM TUBE TOP SCH ×2 (14:35→20:59)
[2020-07-02] MEDS: METHOCARBAMOL 500 MG TABLET PO SCH ×2 (14:52→20:59)
[2020-07-02] MEDS: GABAPENTIN 300 MG CAPSULE PO SCH ×2 (14:52→20:59)
[2020-07-02] MEDS ORDERED: POTASSIUM CHLORIDE 20 MEQ TABLET PO ONE (16:04)
[2020-07-03 05:44] LABS: Basophils # 0.1 10*3/uL (0.0-0.2); Basophils % 0.4 % (0.0-0.8); Eosinophils # 0.4 10*3/uL (0.0-0.87); Eosinophils % 2.6 % (0.00-10.9); Hematocrit 21.6 VOL% (42.0-52.0); Immature Granulocytes % 0.9 %; Immature Granulocytes Absolute 0.15 #; Lymphocytes # 1.1 10*3/uL (1.4-4.0); Lymphocytes % 6.2 % (21.2-54.2); Mean Corpuscular HGB Conc 32.4 GM/DL (32-36); Mean Corpuscular Volume 91.9 FL (87-102); Mean Platelet Volume 10.1 FL (9.6-12.0); Monocytes % 5.3 % (1.7-12.7); Neutrophils % 84.6 % (38.7-73.9); Platelet Count 425 T/CUMM (130-400); Red Blood Count 2.35 MC/CUMM (3.8-5.5); Red Cell Distribution Width 17.5 % (9.3-17.3); White Blood Count 17.1 T/CUMM (4-12)
[2020-07-03 06:06] LABS: Calcium 7.3 MG/DL (8.5-10.1); Osmolality,Calculated 283.8 MOS/KG (273-304); Potassium 3.2 MMOL/L (3.5-5.1)
[2020-07-03] MEDS: INSULIN LISPRO 100 UNIT/ML SUBCUT SCH ×4 (07:41→21:25)
[2020-07-03] MEDS: carvediloL 12.5 MG TABLET PO SCH ×2 (10:24→16:14)
[2020-07-03] MEDS: ZINC OXIDE 16% PASTE 57 GM TUBE TOP SCH ×2 (10:25→21:24)
[2020-07-03] MEDS: METHOCARBAMOL 500 MG TABLET PO SCH ×3 (10:25→21:25)
[2020-07-03] MEDS: GABAPENTIN 300 MG CAPSULE PO SCH ×3 (10:25→21:24)
[2020-07-03] MEDS ORDERED: POTASSIUM CHLORIDE 20 MEQ TABLET PO ONE (15:24)
[2020-07-03] MEDS: PIPERACILLIN/TAZOBACTAM 3,375 MG in SODIUM CHLORIDE 0.9% 100 ML IV SCH ×2 (15:39→21:25)
[2020-07-04] MEDS: INSULIN LISPRO 100 UNIT/ML SUBCUT SCH ×4 (07:46→20:34)
[2020-07-04] MEDS: ZINC OXIDE 16% PASTE 57 GM TUBE TOP SCH ×2 (09:30→20:34)
[2020-07-04] MEDS: carvediloL 12.5 MG TABLET PO SCH ×2 (09:30→17:26)
[2020-07-04] MEDS: GABAPENTIN 300 MG CAPSULE PO SCH ×2 (09:30→20:35)
[2020-07-04] MEDS ORDERED: VANCOMYCIN INJ 1,000 MG in SODIUM CHLORIDE 0.9% 250 ML IV ONE (09:30)
[2020-07-04] MEDS: METHOCARBAMOL 500 MG TABLET PO SCH ×3 (09:31→20:35)
[2020-07-04 10:34] LABS: Basophils # 0.1 10*3/uL (0.0-0.2); Basophils % 0.5 % (0.0-0.8); Eosinophils # 0.4 10*3/uL (0.0-0.87); Eosinophils % 2.7 % (0.00-10.9); Hematocrit 24.3 VOL% (42.0-52.0); Hemoglobin 7.7 GM/DL (14.0-18.0); Immature Granulocytes % 1.3 %; Immature Granulocytes Absolute 0.17 #; Lymphocytes % 7.7 % (21.2-54.2); Mean Corpuscular HGB Conc 31.7 GM/DL (32-36); Mean Corpuscular Volume 92.7 FL (87-102); Mean Platelet Volume 9.7 FL (9.6-12.0); Monocytes % 7.6 % (1.7-12.7); Neutrophils % 80.2 % (38.7-73.9); Platelet Count 487 T/CUMM (130-400); Red Blood Count 2.62 MC/CUMM (3.8-5.5); Red Cell Distribution Width 17.2 % (9.3-17.3); White Blood Count 13.2 T/CUMM (4-12)
[2020-07-04 10:55] LABS: Calcium 7.7 MG/DL (8.5-10.1); Osmolality,Calculated 275.7 MOS/KG (273-304); Potassium 3.5 MMOL/L (3.5-5.1)
[2020-07-04] MEDS: PIPERACILLIN/TAZOBACTAM 3,375 MG in SODIUM CHLORIDE 0.9% 100 ML IV SCH ×2 (12:54→22:30)
[2020-07-05 04:11] LABS: Basophils # 0.1 10*3/uL (0.0-0.2); Basophils % 0.5 % (0.0-0.8); Eosinophils # 0.5 10*3/uL (0.0-0.87); Eosinophils % 4.4 % (0.00-10.9); Hematocrit 23.4 VOL% (42.0-52.0); Hemoglobin 7.6 GM/DL (14.0-18.0); Immature Granulocytes % 1.3 %; Immature Granulocytes Absolute 0.15 #; Lymphocytes # 1.2 10*3/uL (1.4-4.0); Lymphocytes % 10.2 % (21.2-54.2); Mean Corpuscular HGB Conc 32.5 GM/DL (32-36); Mean Corpuscular Volume 92.1 FL (87-102); Mean Platelet Volume 9.8 FL (9.6-12.0); Monocytes % 7.8 % (1.7-12.7); Neutrophils % 75.8 % (38.7-73.9); Platelet Count 532 T/CUMM (130-400); Red Blood Count 2.54 MC/CUMM (3.8-5.5); Red Cell Distribution Width 17.1 % (9.3-17.3); White Blood Count 11.8 T/CUMM (4-12)
[2020-07-05 04:27] LABS: Calcium 7.6 MG/DL (8.5-10.1); Osmolality,Calculated 278.5 MOS/KG (273-304); Potassium 3.4 MMOL/L (3.5-5.1)
[2020-07-05] MEDS ORDERED: SODIUM CHLORIDE 0.9% 1,000 ML IV PRN (07:32)
[2020-07-05] MEDS: INSULIN LISPRO 100 UNIT/ML SUBCUT SCH ×4 (07:33→23:01)
[2020-07-05] MEDS: carvediloL 12.5 MG TABLET PO SCH ×2 (08:00→17:00)
[2020-07-05] MEDS: METHOCARBAMOL 500 MG TABLET PO SCH ×3 (09:00→20:33)
[2020-07-05] MEDS: PIPERACILLIN/TAZOBACTAM 3,375 MG in SODIUM CHLORIDE 0.9% 100 ML IV SCH ×2 (12:07→23:50)
[2020-07-05] MEDS: ZINC OXIDE 16% PASTE 57 GM TUBE TOP SCH ×2 (12:08→20:45)
[2020-07-05] MEDS ORDERED: VANCOMYCIN INJ 1,000 MG in SODIUM CHLORIDE 0.9% 250 ML IV ONE (18:00)
[2020-07-05] MEDS: GABAPENTIN 300 MG CAPSULE PO SCH (20:33)
[2020-07-06 06:29] LABS: Basophils # 0.1 10*3/uL (0.0-0.2); Basophils % 0.5 % (0.0-0.8); Eosinophils # 0.5 10*3/uL (0.0-0.87); Eosinophils % 4.4 % (0.00-10.9); Hemoglobin 10.1 GM/DL (14.0-18.0); Immature Granulocytes % 1.4 %; Immature Granulocytes Absolute 0.17 #; Lymphocytes % 8.3 % (21.2-54.2); Mean Corpuscular HGB Conc 32.6 GM/DL (32-36); Mean Corpuscular Volume 89.1 FL (87-102); Mean Platelet Volume 9.2 FL (9.6-12.0); Monocytes % 7.9 % (1.7-12.7); Neutrophils % 77.5 % (38.7-73.9); Platelet Count 520 T/CUMM (130-400); Red Blood Count 3.48 MC/CUMM (3.8-5.5); Red Cell Distribution Width 17.5 % (9.3-17.3); White Blood Count 12.4 T/CUMM (4-12)
[2020-07-06 06:48] LABS: Calcium 8.4 MG/DL (8.5-10.1); Osmolality,Calculated 279.1 MOS/KG (273-304); Potassium 3.5 MMOL/L (3.5-5.1)
[2020-07-06 06:50] LABS: Calcium 8.4 MG/DL (8.5-10.1); Potassium 3.7 MMOL/L (3.5-5.1)
[2020-07-06] MEDS: INSULIN LISPRO 100 UNIT/ML SUBCUT SCH ×4 (07:35→21:19)
[2020-07-06] MEDS: METHOCARBAMOL 500 MG TABLET PO SCH ×3 (10:34→21:18)
[2020-07-06] MEDS: carvediloL 12.5 MG TABLET PO SCH ×2 (10:34→17:46)
[2020-07-06] MEDS: ZINC OXIDE 16% PASTE 57 GM TUBE TOP SCH ×2 (10:34→21:19)
[2020-07-06] MEDS: PIPERACILLIN/TAZOBACTAM 3,375 MG in SODIUM CHLORIDE 0.9% 100 ML IV SCH (12:56)
[2020-07-06] MEDS: GABAPENTIN 300 MG CAPSULE PO SCH (21:18)
[2020-07-07] MEDS: PIPERACILLIN/TAZOBACTAM 3,375 MG in SODIUM CHLORIDE 0.9% 100 ML IV SCH ×2 (00:14→18:30)
[2020-07-07 05:32] LABS: Basophils # 0.1 10*3/uL (0.0-0.2); Basophils % 0.4 % (0.0-0.8); Eosinophils # 0.5 10*3/uL (0.0-0.87); Eosinophils % 3.4 % (0.00-10.9); Hematocrit 26.9 VOL% (42.0-52.0); Hemoglobin 8.7 GM/DL (14.0-18.0); Immature Granulocytes % 1.7 %; Immature Granulocytes Absolute 0.26 #; Lymphocytes # 1.1 10*3/uL (1.4-4.0); Lymphocytes % 7.5 % (21.2-54.2); Mean Corpuscular HGB Conc 32.3 GM/DL (32-36); Mean Corpuscular Volume 90.6 FL (87-102); Mean Platelet Volume 9.1 FL (9.6-12.0); Monocytes % 6.8 % (1.7-12.7); Neutrophils % 80.2 % (38.7-73.9); Platelet Count 423 T/CUMM (130-400); Red Blood Count 2.97 MC/CUMM (3.8-5.5); Red Cell Distribution Width 17.8 % (9.3-17.3); White Blood Count 15.2 T/CUMM (4-12)
[2020-07-07 05:48] LABS: Calcium 7.9 MG/DL (8.5-10.1); Osmolality,Calculated 274.5 MOS/KG (273-304); Potassium 3.7 MMOL/L (3.5-5.1)
[2020-07-07] MEDS: INSULIN LISPRO 100 UNIT/ML SUBCUT SCH ×3 (07:51→18:30)
[2020-07-07] MEDS: carvediloL 12.5 MG TABLET PO SCH (09:43)
[2020-07-07] MEDS: METHOCARBAMOL 500 MG TABLET PO SCH ×2 (09:44→18:30)
[2020-07-07] MEDS: ZINC OXIDE 16% PASTE 57 GM TUBE TOP SCH (09:45)
[2020-07-07 11:54] VITALS: BP 130/75
== END 2020-07-07 18:51 | DRG 239 ==
LOC: EDBD → EDUNIT# → N.ED 19:43 → SUATTDRO 22:01 → N.EDINP 22:01 → N.3E 23:12
PROVIDERS: ADMIT Internal Medicine; ATTEND Internal Medicine

== ENCOUNTER 2021-06-01 03:27 | Inpatient (IN) ==
[2021-06-01] MEDS ORDERED: methylPREDNISolone SOD SUC 125 MG/2 ML VIAL IV STA (03:55)
[2021-06-01] MEDS ORDERED: NITROGLYCERIN 2% OINT 1 INCH/GM PACK TOP STA (03:55)
[2021-06-01] MEDS ORDERED: ONDANSETRON 4 MG/2 ML VIAL IV STA (03:55)
[2021-06-01] MEDS ORDERED: ALBUTEROL NEB SOLN 5 MG/ML 20 ML/BOTTLE CONT NEB SCH (04:00)
[2021-06-01 04:59] LABS: ABG Base Excess -0.6 MMOL/L (-2.5-2.5); ABG HCO3 23.1 MMOL/L (20-26); ABG Oxygen Saturation 54.7 % (95-100); ABG PCO2 36.2 MM HG (35-48); ABG PH 7.419 (7.35-7.45); ABG TCO2 21.1 MMOL/L (23-27)
[2021-06-01 05:03] LABS: ABG PO2 32.5 MM HG (80-95)
[2021-06-01 05:34] LABS: Basophils # 0.1 10*3/uL (0.0-0.2); Basophils % 0.3 % (0.0-0.8); Eosinophils # 1.1 10*3/uL (0.0-0.87); Eosinophils % 5.6 % (0.00-10.9); Hematocrit 35.7 VOL% (42.0-52.0); Immature Granulocytes % 0.7 %; Immature Granulocytes Absolute 0.15 #; Lymphocytes % 9.9 % (21.2-54.2); Mean Corpuscular HGB Conc 33.6 GM/DL (32-36); Mean Platelet Volume 9.4 FL (9.6-12.0); Monocytes % 5.1 % (1.7-12.7); Neutrophils % 78.4 % (38.7-73.9); Platelet Count 340 T/CUMM (130-400); Red Blood Count 3.57 MC/CUMM (3.8-5.5); Red Cell Distribution Width 15.1 % (9.3-17.3); White Blood Count 20.5 T/CUMM (4-12)
[2021-06-01 05:39] LABS: ABG Base Excess -1.3 MMOL/L (-2.5-2.5); ABG HCO3 23.2 MMOL/L (20-26); ABG Oxygen Saturation 94.8 % (95-100); ABG PCO2 39.5 MM HG (35-48); ABG PH 7.383 (7.35-7.45); ABG PO2 83.3 MM HG (80-95); ABG TCO2 20.8 MMOL/L (23-27)
[2021-06-01 05:56] LABS: Band Neutrophils 1 % (0-10); Eosinophils 13 % (0-10); Lymphocytes 6 % (20-55); Platelet Estimate Adequate; Segmented Neutrophils 73 % (50-85); Total Cells Counted 100
[2021-06-01 05:57] LABS: Hypochromasia Slight; Microcytosis Slight
[2021-06-01] MEDS ORDERED: PIPERACILLIN/TAZOBACTAM 3,375 MG in SODIUM CHLORIDE 0.9% 100 ML IV STA (06:09)
[2021-06-01 06:14] LABS: Albumin 3.6 G/DL (3.4-5.0); Bilirubin,Total 0.5 MG/DL (0.20-1.00); Calcium 8.5 MG/DL (8.5-10.1); Osmolality,Calculated 307.5 MOS/KG (273-304); Potassium 4.8 MMOL/L (3.5-5.1); Total Protein 8.9 G/DL (6.4-8.2)
[2021-06-01 09:57] LABS: ABG Base Excess -1.5 MMOL/L (-2.5-2.5); ABG HCO3 22.4 MMOL/L (20-26); ABG Oxygen Saturation 61.7 % (95-100); ABG PCO2 45.3 MM HG (35-48); ABG PH 7.341 (7.35-7.45); ABG TCO2 21.9 MMOL/L (23-27)
[2021-06-01 10:00] LABS: ABG PO2 39.1 MM HG (80-95)
[2021-06-01] MEDS ORDERED: hydrALAZINE 20 MG/1 ML VIAL IV STA (11:13)
[2021-06-01] MEDS ORDERED: LABETALOL 100 MG/20 ML VIAL IV STA (11:25)
[2021-06-01] MEDS ORDERED: ONDANSETRON 4 MG/2 ML VIAL IV PRN (11:30)
[2021-06-01] MEDS ORDERED: ALBUTEROL 2.5 MG/3 ML NEB RESP TX PRN (11:30)
[2021-06-01] MEDS ORDERED: niCARdipine INJ 25 MG in SODIUM CHLORIDE 0.9% 240 ML IV PRN (11:31)
[2021-06-01] MEDS ORDERED: niCARdipine 25 MG/10 ML VIAL IV ONE (11:47)
[2021-06-01 12:31] LABS: Bilirubin,Urine Negative (Negative); Blood, Urine Negative (Negative); Glucose,Urine (UA) >=500 mg/dL (Negative); Ketones,Urine Negative (Negative); Nitrite,Urine Negative (Negative); Protein,Urine >=500 MG/DL; RBC,Urine 8 /HPF (0-4); Urine Appearance CLEAR (Clear); Urine Color Yellow (Yellow); Urine Urobilinogen < 2.0 EU/DL (0.2-1.0)
[2021-06-01] MEDS: PANTOPRAZOLE 40 MG TABLET PO SCH (12:33)
[2021-06-01] MEDS: cefTRIAXone 1,000 MG in SODIUM CHLORIDE 0.9% 100 ML IV SCH (13:50)
[2021-06-01] MEDS: AZITHROMYCIN INJ 250 MG in SODIUM CHLORIDE 0.9% 250 ML IV SCH (14:13)
[2021-06-01] MEDS: INSULIN LISPRO 100 UNIT/ML SUBCUT SCH ×2 (16:58→22:25)
[2021-06-01] MEDS ORDERED: SEVELAMER CARBONATE 800 MG TABLET PO SCH (17:00)
[2021-06-01] MEDS: methylPREDNISolone SOD SUC 40 MG/1 ML VIAL IV SCH (17:06)
[2021-06-01] MEDS: carvediloL 25 MG TABLET PO SCH (17:07)
[2021-06-01] MEDS: SEVELAMER CARBONATE 800 MG TABLET PO SCH (18:20)
[2021-06-01] MEDS: COLESTIPOL 1 GM TABLET PO SCH (20:58)
[2021-06-01] MEDS: INSULIN GLARGINE 100 UNIT/ML SUBCUT SCH (20:59)
[2021-06-01] MEDS ORDERED: hydrALAZINE 20 MG/1 ML VIAL IV PRN (23:44)
[2021-06-02] MEDS: traMADol 50 MG TABLET PO PRN ×4 (00:10→23:30)
[2021-06-02 02:28] VITALS: BP 125/73
[2021-06-02] MEDS: methylPREDNISolone SOD SUC 40 MG/1 ML VIAL IV SCH ×2 (04:44→17:22)
[2021-06-02 04:49] LABS: Basophils % 0.1 % (0.0-0.8); Hematocrit 31.9 VOL% (42.0-52.0); Hemoglobin 10.6 GM/DL (14.0-18.0); Immature Granulocytes % 0.9 %; Immature Granulocytes Absolute 0.11 #; Lymphocytes # 0.7 10*3/uL (1.4-4.0); Lymphocytes % 5.5 % (21.2-54.2); Mean Corpuscular HGB Conc 33.2 GM/DL (32-36); Mean Corpuscular Volume 99.7 FL (87-102); Mean Platelet Volume 9.6 FL (9.6-12.0); Monocytes % 4.5 % (1.7-12.7); Platelet Count 272 T/CUMM (130-400); Red Cell Distribution Width 15.1 % (9.3-17.3); White Blood Count 12.8 T/CUMM (4-12)
[2021-06-02 05:12] LABS: Albumin 3.2 G/DL (3.4-5.0); Bilirubin,Total 0.5 MG/DL (0.20-1.00); Calcium 8.3 MG/DL (8.5-10.1); Osmolality,Calculated 301.2 MOS/KG (273-304); Potassium 4.8 MMOL/L (3.5-5.1); Total Protein 7.9 G/DL (6.4-8.2)
[2021-06-02] MEDS: INSULIN LISPRO 100 UNIT/ML SUBCUT SCH ×4 (08:47→22:00)
[2021-06-02] MEDS: COLESTIPOL 1 GM TABLET PO SCH ×2 (08:47→21:55)
[2021-06-02] MEDS: SEVELAMER CARBONATE 800 MG TABLET PO SCH ×2 (08:47→12:33)
[2021-06-02] MEDS: carvediloL 25 MG TABLET PO SCH ×2 (08:48→17:22)
[2021-06-02] MEDS: PANTOPRAZOLE 40 MG TABLET PO SCH (08:48)
[2021-06-02] MEDS: MULTIVITAMIN (CENTRUM) TABLET PO SCH (09:09)
[2021-06-02] MEDS: cefTRIAXone 1,000 MG in SODIUM CHLORIDE 0.9% 100 ML IV SCH (15:32)
[2021-06-02] MEDS: AZITHROMYCIN INJ 250 MG in SODIUM CHLORIDE 0.9% 250 ML IV SCH (17:22)
[2021-06-02] MEDS: INSULIN GLARGINE 100 UNIT/ML SUBCUT SCH (22:40)
[2021-06-03] MEDS: traMADol 50 MG TABLET PO PRN ×3 (06:34→23:46)
[2021-06-03 06:43] LABS: Calcium 8.1 MG/DL (8.5-10.1); Osmolality,Calculated 295.1 MOS/KG (273-304); Potassium 5.8 MMOL/L (3.5-5.1)
[2021-06-03] MEDS: methylPREDNISolone SOD SUC 40 MG/1 ML VIAL IV SCH ×2 (07:45→18:03)
[2021-06-03] MEDS: INSULIN LISPRO 100 UNIT/ML SUBCUT SCH ×4 (08:49→20:59)
[2021-06-03] MEDS: carvediloL 25 MG TABLET PO SCH ×2 (09:07→18:03)
[2021-06-03] MEDS: MULTIVITAMIN (CENTRUM) TABLET PO SCH (09:07)
[2021-06-03] MEDS: COLESTIPOL 1 GM TABLET PO SCH ×2 (09:07→22:00)
[2021-06-03] MEDS: PANTOPRAZOLE 40 MG TABLET PO SCH (09:07)
[2021-06-03] MEDS: cefTRIAXone 1,000 MG in SODIUM CHLORIDE 0.9% 100 ML IV SCH (12:10)
[2021-06-03] MEDS: AZITHROMYCIN INJ 250 MG in SODIUM CHLORIDE 0.9% 250 ML IV SCH ×2 (16:33→18:03)
[2021-06-03] MEDS ORDERED: ACETAMINOPHEN 325 MG TABLET PO PRN (20:41)
[2021-06-03] MEDS: INSULIN GLARGINE 100 UNIT/ML SUBCUT SCH (20:57)
[2021-06-04] MEDS: methylPREDNISolone SOD SUC 40 MG/1 ML VIAL IV SCH (06:20)
[2021-06-04] MEDS: INSULIN LISPRO 100 UNIT/ML SUBCUT SCH (11:50)
[2021-06-04] MEDS: MULTIVITAMIN (CENTRUM) TABLET PO SCH (11:51)
[2021-06-04] MEDS: carvediloL 25 MG TABLET PO SCH (11:51)
[2021-06-04] MEDS: COLESTIPOL 1 GM TABLET PO SCH (11:51)
[2021-06-04] MEDS: PANTOPRAZOLE 40 MG TABLET PO SCH (11:51)
== END 2021-06-04 14:22 | disposition home or self-care (01) | DRG 189 ==
LOC: EDUNIT# → N.ED 03:27 → N.EDINP 11:30 → SUATTDRO 11:30 → N.CC 19:05
PROVIDERS: ADMIT Internal Medicine; ATTEND Internal Medicine

== ENCOUNTER 2021-10-24 18:44 | Observation (INO) ==
[2021-10-24 20:03] LABS: Calcium 8.4 MG/DL (8.5-10.1); Osmolality,Calculated 284.7 MOS/KG (273-304); Potassium 5.3 MMOL/L (3.5-5.1)
[2021-10-24 20:48] LABS: Basophils % 0.4 % (0.0-0.8); Eosinophils # 0.5 10*3/uL (0.0-0.87); Eosinophils % 4.1 % (0.00-10.9); Hematocrit 32.4 VOL% (42.0-52.0); Hemoglobin 10.7 GM/DL (14.0-18.0); Immature Granulocytes % 0.3 %; Immature Granulocytes Absolute 0.03 #; Lymphocytes # 1.6 10*3/uL (1.4-4.0); Mean Corpuscular Volume 99.4 FL (87-102); Mean Platelet Volume 9.8 FL (9.6-12.0); Monocytes # 0.7 10*3/uL (0.11-0.8); Monocytes % 6.4 % (1.7-12.7); Neutrophils % 74.8 % (38.7-73.9); Platelet Count 281 T/CUMM (130-400); Red Blood Count 3.26 MC/CUMM (3.8-5.5); Red Cell Distribution Width 16.3 % (9.3-17.3); White Blood Count 11.2 T/CUMM (4-12)
[2021-10-24] MEDS ORDERED: ACETAMINOPHEN 500 MG TABLET ONE (20:51)
[2021-10-24] MEDS ORDERED: ACETAMINOPHEN 500 MG TABLET PO STA (20:51)
[2021-10-24] MEDS ORDERED: hydrALAZINE 20 MG/1 ML VIAL IV PRN (21:17)
[2021-10-24] MEDS ORDERED: GLUCAGON 1 MG VIAL IM PRN (21:17)
[2021-10-24] MEDS ORDERED: MORPHINE 2 MG/1 ML SYRINGE IV PRN (21:17)
[2021-10-24] MEDS ORDERED: DEXTROSE 10% 250 ML BAG IV PRN (21:17)
[2021-10-24] MEDS ORDERED: ONDANSETRON 4 MG/2 ML VIAL IV PRN (21:17)
[2021-10-24] MEDS ORDERED: ACETAMINOPHEN 325 MG TABLET PO PRN (21:17)
[2021-10-24] MEDS ORDERED: SODIUM ZIRCONIUM CYCLOSILICATE 10 GM PACK PO ONE (21:23)
[2021-10-25 06:31] LABS: Basophils % 0.2 % (0.0-0.8); Eosinophils # 0.4 10*3/uL (0.0-0.87); Eosinophils % 4.5 % (0.00-10.9); Hematocrit 29.8 VOL% (42.0-52.0); Hemoglobin 9.7 GM/DL (14.0-18.0); Immature Granulocytes % 0.5 %; Immature Granulocytes Absolute 0.05 #; Lymphocytes # 1.9 10*3/uL (1.4-4.0); Lymphocytes % 19.5 % (21.2-54.2); Mean Corpuscular HGB Conc 32.6 GM/DL (32-36); Mean Corpuscular Volume 100.7 FL (87-102); Mean Platelet Volume 10.2 FL (9.6-12.0); Monocytes # 0.6 10*3/uL (0.11-0.8); Monocytes % 6.5 % (1.7-12.7); Neutrophils % 68.8 % (38.7-73.9); Platelet Count 236 T/CUMM (130-400); Red Blood Count 2.96 MC/CUMM (3.8-5.5); White Blood Count 9.5 T/CUMM (4-12)
[2021-10-25 06:58] LABS: Calcium 8.1 MG/DL (8.5-10.1); Osmolality,Calculated 292.5 MOS/KG (273-304); Potassium 4.8 MMOL/L (3.5-5.1)
[2021-10-25] MEDS: HEPARIN 5,000 UNIT/1 ML VIAL SUBCUT SCH ×2 (09:01→21:07)
[2021-10-25] MEDS: INSULIN LISPRO 100 UNIT/ML SUBCUT SCH ×4 (09:01→21:06)
[2021-10-25] MEDS: PANTOPRAZOLE 40 MG TABLET PO SCH (09:01)
[2021-10-25] MEDS: carvediloL 25 MG TABLET PO SCH (16:04)
[2021-10-25] MEDS: SEVELAMER CARBONATE 800 MG TABLET PO SCH (16:04)
[2021-10-25] MEDS ORDERED: carvediloL 12.5 MG TABLET PO SCH (17:00)
[2021-10-25] MEDS: DORZOLAMIDE/TIMOLOL OPH SOLN 10 ML BOTTLE BOTH EYES SCH (21:06)
[2021-10-25] MEDS: INSULIN GLARGINE 100 UNIT/ML SUBCUT SCH (21:07)
[2021-10-26 06:43] LABS: Basophils % 0.3 % (0.0-0.8); Eosinophils # 0.5 10*3/uL (0.0-0.87); Eosinophils % 5.1 % (0.00-10.9); Hematocrit 30.6 VOL% (42.0-52.0); Hemoglobin 10.2 GM/DL (14.0-18.0); Immature Granulocytes % 0.4 %; Immature Granulocytes Absolute 0.04 #; Lymphocytes # 1.6 10*3/uL (1.4-4.0); Lymphocytes % 18.2 % (21.2-54.2); Mean Corpuscular HGB Conc 33.3 GM/DL (32-36); Mean Platelet Volume 9.9 FL (9.6-12.0); Monocytes # 0.6 10*3/uL (0.11-0.8); Monocytes % 6.6 % (1.7-12.7); Neutrophils % 69.4 % (38.7-73.9); Platelet Count 235 T/CUMM (130-400); Red Blood Count 3.09 MC/CUMM (3.8-5.5); Red Cell Distribution Width 16.2 % (9.3-17.3)
[2021-10-26 07:04] LABS: Calcium 8.7 MG/DL (8.5-10.1); Osmolality,Calculated 285.2 MOS/KG (273-304); Potassium 5.5 MMOL/L (3.5-5.1)
[2021-10-26] MEDS: INSULIN LISPRO 100 UNIT/ML SUBCUT SCH ×4 (08:05→21:44)
[2021-10-26] MEDS ORDERED: MULTIVITAMIN (CENTRUM) TABLET PO SCH (09:00)
[2021-10-26] MEDS: carvediloL 25 MG TABLET PO SCH ×2 (09:08→17:35)
[2021-10-26] MEDS: HEPARIN 5,000 UNIT/1 ML VIAL SUBCUT SCH ×2 (09:09→21:47)
[2021-10-26] MEDS: SEVELAMER CARBONATE 800 MG TABLET PO SCH ×3 (09:57→17:28)
[2021-10-26] MEDS: DORZOLAMIDE/TIMOLOL OPH SOLN 10 ML BOTTLE BOTH EYES SCH ×2 (09:57→21:46)
[2021-10-26] MEDS: PANTOPRAZOLE 40 MG TABLET PO SCH (13:31)
[2021-10-26] MEDS: INSULIN GLARGINE 100 UNIT/ML SUBCUT SCH (21:44)
[2021-10-27 07:47] VITALS: BP 101/82
== END 2021-10-27 11:17 | disposition home or self-care (01) ==
LOC: N.EDINP 18:44 → N.ED 18:44 → SUATTDRO 21:17 → N.3E 21:34
PROVIDERS: ADMIT Internal Medicine Geriatric Medicine; ATTEND Emergency Medicine